=== PATIENT | male | born 1970 | race Caucasian/White ===

== ENCOUNTER 2018-04-14 11:44 | Day surgery (SDC) | payer MEDICAID, SELFPAY ==
--- NOTE | 2018-04-13 07:34 | HP.PCM_ITS ---
History and Physical Date of Admission: 04/14/18 HISTORY AND PHYSICAL ? Pamela Lindquist 1970 ? REFERRING PHYSICIAN: ??Malvin Mahmood MD ? CHIEF COMPLAINT: ??Consult (Consult Colonoscopy/ EGD) ? HPI: The patient is a 48 year old male referred for endoscopy. ?Pamela notes history of Familial Adenomatous Polyposis and requires regular endoscopic surveillance, has had multiple endoscopies with polypectomies. ?He is maintained on an annual colonoscopy schedule and notes he had also been instructed to have EGD every year, is due for EGD this year. ?Patient denies any change in bowel habits, abdominal pain or other concerns currently. ?His most recent endoscopy reports have been reviewed. ? The patient is being seen by me today at the request of Dr. Mahmood?for my opinion and advice regarding surveillance endoscopy for FAP. ?Of note, patient was actually already scheduled for colonoscopy as Open Access for next week, however this does not reflect the EGD which is also needed this year. ?Additionally, patient is scheduled for moderate sedation, last several endoscopy procedures have been done under Monitored Anesthetic Care. ?The patient denies any recall from prior procedures. ?Has sleep apnea and wears CPAP, otherwise denies breathing problems and denies any cardiac issues. ?He does note that since he will need the EGD in addition to colonoscopy this year, he would prefer the heavier sedation. ? ? PAST?MEDICAL?HISTORY PAST MEDICAL HISTORY Diagnosis Date ? Benign neoplasm of colon ? ? Diaphragmatic hernia without mention of obstruction or gangrene ? ? Esophageal reflux ? ? Familial adenomatous polyposis 11/2013 ? APC mutation ? Family history of malignant neoplasm of gastrointestinal tract ? ? Obstructive sleep apnea ? ? on cpap ? Pure hypercholesterolemia ? ? Scarlet fever ? ? as a child ? Uncontrolled type 2 diabetes mellitus without complication, without long-term current use of insulin (HCC) 11/22/2015 ? Unspecified essential hypertension ? ? Unspecified hypothyroidism ? ? ? PAST?SURGICAL?HISTORY PAST SURGICAL HISTORY Procedure Laterality Date ? COLONOS W/REM POLYP SNARE ? ? polyps - cecum - multiple small, 40cm- 3, and rectum ? COLONOS W/REM POLYP SNARE ? 02/04/2017 ? For adenomatous polyps-history of familial adenomatous [id number] follow-up ? COLONOSCOP W/ OR W/O BRSH SPEC ? 09/24/2013 ? Colonoscopy ? COLONOSCOP W/ OR W/O BRSH SPEC ? 11/26/14 ? Colonoscopy ? COLONOSCOP W/ OR W/O BRSH SPEC ? 12/08/15 ? Colonoscopy (MAC) ? EGD W/O BRSH SPECIMEN W/BX ? ? hiatal hernia - moderate ? EGD W/O OR W/BRUSH/WASH ? 05/28/2014 ? EGD ? EGD W/O OR W/BRUSH/WASH ? 12/08/15 ? EGD (MAC) ? F COLONOSCOPY WITH POLYPECTOMY ? 02/05/13 ? multiple small adenomatous colon polyps removed-patient needs repeat scope in 2 years ? PAST SURGICAL HISTORY OF ? ? ? left great toe, nail removal (trauma) ? PAST SURGICAL HISTORY OF ? 1990 ? ORIF right femur -- [place] ? SIGMOIDOSCOPY FLEX DIAG ? 08/27/2013 ? Sigmoidoscopy, flexible ? ? CURRENT?MEDICATIONS ? Current Outpatient Prescriptions: levothyroxine (SYNTHROID) 50 mcg tablet TAKE 1 TABLET DAILY WITH 200MCG TABLET lisinopril (PRINIVIL) 5 mg tablet Take 1 tablet by mouth once daily. glipiZIDE XL (GLUCOTROL XL) 5 mg 24 hr tablet Take 1 tablet by mouth every morning. levothyroxine (SYNTHROID) 200 mcg tablet TAKE 1 TABLET BY MOUTH EVERY DAY ergocalciferol, vitamin D2, (DRISDOL) 50,000 unit capsule TAKE 1 CAPSULE BY MOUTH EVERY WEEK FREESTYLE LITE STRIPS test strip Test blood sugar twice daily E11.9 UNILET SUPER THIN LANCETS 30 gauge misc Test blood sugar twice daily E11.9 gabapentin (NEURONTIN) 300 mg capsule TAKE 1 CAPSULE BY MOUTH AROUND 5PM NEEDED FOR RLS, MAY INCREASE TO UP TO 3 (THREE) CAPSULES NEEDED metFORMIN (GLUCOPHAGE) 500 mg tablet Take 2 tablets by mouth twice daily with meals. CPAP On CPAP 9cmH2O. Please provide supplies. Mask per preference, heated tubing, filters, SD card, heated humidity. Lifetime Supplies. Dx: G47.33. Fenofibrate (LOFIBRA) 160 mg tablet TAKE 1 TABLET DAILY Omeprazole 40 mg capsule Take 1 capsule by mouth once daily. multivitamin tablet Take 1 tablet by mouth once daily. cetirizine (ZYRTEC) 10 mg tablet Take 1 tablet by mouth once daily. simvastatin (ZOCOR) 20 mg tablet TAKE 1 TABLET BY MOUTH AT BEDTIME ciclopirox (LOPROX) 0.77 % cream Apply 1 application to affected area twice daily. triamcinolone (KENALOG IN ORABASE) 0.1 % paste 1 application by DENTAL route three times daily. fluticasone (FLONASE) 50 mcg/actuation nasal spray Use 2 Sprays in each nostril once daily. Rinse mouth after use. FLUoxetine (PROZAC) 20 mg capsule TAKE 1 CAPSULE BY MOUTH EVERY DAY COMPOUNDED PRESCRIPTION Disposable filter papers for CPAP machine, old filter papers are no good. Dx ROSEANN 327.23 albuterol HFA (PROAIR HFA) 90 mcg/actuation inhaler Inhale 2 Puffs as instructed every 6 hours as needed for Wheezing/Shortness of Breath. Center-3 Fatty Acids-Vitamin E (FISH OIL) 1,000 mg cap Take 2 capsules by mouth once daily. COMPOUNDED PRESCRIPTION Knee High Compression Stockings 20-30 mm, DX: chronic peripheral venous insufficiency, edema ? No current facility-administered medications for this visit. ? ALLERGIES: Patient has no known allergies. ? PERSONAL HISTORY: SOCIAL?HISTORY Social History ??Marital status: ?Spouse name: ?Years of education: ?Number of children: 2 ? Social History Main Topics ??Smoking status: Former Smoker ?Packs/day: 1.00 ?Years: 5.00 ?Types: Cigarettes ?Quit date: 06/24/1997 ??Smokeless tobacco: Never Used ?Comment: ocassional cigars ??Alcohol use: Yes ?Comment: Rare for holidays ??Drug use: No ?Sexual activity: Yes ?Partners with: Female ? ? FAMILY HISTORY: FAMILY?HISTORY FAMILY HISTORY Problem Relation Age of Onset ? Coronary Artery Disease Father ? ? ? age 40's ? Lipids Father ? ? Hypertension Father ? ? GI Father ? ? ? 100+ colonic polyps, ?colon cancer late 50s ? Breast Cancer Mother 42 ? Stroke Paternal Grandmother ? ? Colon Cancer Paternal Grandmother ? ? ? dx 40s ? Diabetes Maternal Grandmother ? ? REVIEW OF SYMPTOMS: ??The review of systems data was entered by the nurse and reviewed by me ? Nursing Notes: Jess Rivas LPN ?01/30/2018 10:16 AM ?Signed REVIEW OF SYSTEMS: ?General:???The patient denies fatigue, NOTES weight loss, denies weight gain, denies feeling hot, and denies feelings of cold. ?Eyes: ?The patient denies glaucoma, denies eye injury/surgery, wears glasses or contacts. ?Ear/Nose/Throat: ?The patient NOTES allergies, denies hayfever, denies ear infections, and denies bloody noses. ?Cardiovascular: ?The patient denies chest pain, denies heart disease, NOTES high blood pressure,denies cardiac stent, denies prior heart attack, denies irregular heart beat, NOTES high cholesterol, ?denies poor circulation, denies heart failure, other cardiac issues, denies claudication, denies cold feet, denies peripheral arterial stent. ?Respiratory: ?The patient denies tuberculosis, denies pneumonia, denies frequent cough, denies pulmonary embolism, denies shortness of breath, and d enies coughing up blood. ?Gastrointestinal: ?The patient denies difficulty swallowing, NOTES acid reflux, denies ulcers, denies vomiting, denies jaundice/hepatitis, denies gallbladder problems, denies black or tarry stools, NOTES hemorrhoids, NOTES bleeding from rectum, denies diverticulitis, denies constipation, denies diarrhea, denies loss of stool control, and NOTES hernias. ?Kidney/Bladder: ?The patient denies kidney stones, denies urine infections, and denies bloody urine. ?Skin: ?The patient denies a history of skin cancer, denies bleeding/changing moles, and denies a history of skin rash. ?Neurologic: ?The patient denies a history of epilepsy/convulsions, denies headaches, denies head/spinal injuries, and denies stroke/TIA. ?Psychiatric: ?The patient denies psychiatric medications, denies depression, and denies voices, denies substance abuse. ?Endocrine: ?The patient NOTES thyroid disorders, NOTES diabetes, and denies hormonal problems. ?Hematologic: ?The patient denies a history of bruising, denies bleeding, and denies anemia, denies blood clots. ?Infections: ?The patient NOTES a history of measles and mumps, denies rheumatic fever, and denies sexually transmitted diseases. ?Musculoskeletal: ?The patient denies back pain/injury, NOTES back problems, denies sciatica, denies knee/foot trouble, denies arthritis, or denies gout. ? ? When was patient's last Mammogram screening? N/A ? ?Last Colonoscopy: ?02/2017 ? Jess Rivas LPN? I have confirmed and edited as necessary, the PFSH and ROS obtained by others. ? ? PHYSICAL EXAMINATION: ? General: ?The patient is 48 year old male, well nourished, well hydrated in no acute distress. ?The patient is oriented to time, place, and person. ? VITALS: Blood pressure 124/86, pulse 72.?There is no height or weight on file to calculate BMI.? ? HEENT: ?Normal cephalic, ataumatic, pupils are equally round, sclera are anicteric, mucous membranes are moist, oropharynx is clear. ?Neck has no masses, asymmetry or lymphadenopathy. ? ? Respiratory: ?Clear to auscultation and percussion. ?Normal respiratory excursion and pattern. ? Cardiac: ?Examination is regular rate and rhythm. ? Abdominal exam: ?Soft, nontender, ?with no palpable masses. ?No hepatosplenomegaly. ?No palpable hernias. ? Rectal exam: exam deferred ? Extremities: ?no clubbing, cyanosis or edema. ?No adenopathy. ? Other: ? LABORATORY VALUES: As Noted ? RADIOLOGIC STUDIES: ?As Noted ? Assessment ? IMPRESSION: encounter for high-risk surveillance endoscopy due to Familial Adenomatous Polyposis ? PLAN: ?We will plan for both upper and lower endoscopy-will reschedule procedure for MAC with both EGD and colonoscopy to be done at that setting. ??We discussed the risks and benefits of the planned endoscopy. ?I have informed the patient that complications can occur including failure to complete the endoscopy and perforation. ?The patient had the opportunity to ask questions concerning the planned endoscopy. ?My staff has also explained the procedure to the patient in understandable terms and has given the patient printed material concerning the procedure. ?The patient freely consents to surgery. ? I plan to use golytely bowel preparation for endoscopy ? I plan for monitored anesthetic care. ? Diagnoses: (D12.6) FAP (familial adenomatous polyposis) ?(primary encounter diagnosis) ? My findings have been communicated to Dr. Mahmood?via shared medical record. ?This note will be forwarded to Dr. Malvin Mahmood MD. ?? Return to Clinic: The patient is instructed to follow-up with me 1 week post operatively. ? ? Kimberley Lagunas PA-C
[2018-04-14] VITALS (7 sets, daily range): BP systolic 110–126; BP diastolic 70–84; PULSE 58–67; RESP 16–18; TEMP 36.2–36.6; O2SAT 97–99; BMI 36.5
[2018-04-14 12:31] LABS: Bedside Glucose 144 mg/dL (70-110)
--- OUTSIDE RECORDS SUMMARY | 2018-04-14 12:37 | XMS RPT_ITS ---
:1970 Author Organization OHIP Care Team Providers Name Role Phone LEOBARDO MAHMOOD Attending Unavailable LEOBARDO MAHMOOD Referring Unavailable LEOBARDO MAHMOOD Attending Unavailable LEOBARDO MAHMOOD Referring Unavailable LEOBARDO MAHMOOD Referring Unavailable LEOBARDO MAHMOOD Referring Unavailable LEOBARDO MAHMOOD Referring Unavailable LEOBARDO MAHMOOD Attending Unavailable CECY LAGUNAS) Attending Unavailable LEOBARDO MAHMOOD Referring Unavailable Antonio Artis Attending Unavailable Antonio Artis Referring Unavailable Leobardo Mahmood Primary Care Unavailable PROBLEMS PROBLEMS DATE TYPE CONDITION / CODE ATTENDING STATUS SOURCE 01/11/2009 Active Mixed hyperlipidemia NA Active [facility] / E78.2(ICD-10) [facility] [place] Repository 10/03/2017 Active Type 2 diabetes NA Active [facility] mellitus with other [facility] [place] diabetic kidney Repository complication / E11.29(ICD-10) 10/03/2017 Active Proteinuria, NA Active [facility] unspecified / [facility] [place] R80.9(ICD-10) Repository 11/13/2016 Active Type 2 diabetes NA Active [facility] mellitus without [facility] [place] complications / Repository E11.9(ICD-10) 01/12/2016 Active Hypothyroidism, NA Active [facility] unspecified / [facility] [place] E03.9(ICD-10) Repository 08/10/2015 Active Vitamin D NA Active [facility] deficiency, [facility] [place] unspecified / Repository E55.9(ICD-10) 01/11/2009 Active Essential (primary) NA Active [facility] hypertension / [facility] [place] I10(ICD-10) Repository 06/20/2017 Active Iron deficiency NA Active [facility] anemia, unspecified [facility] [place] / D50.9(ICD-10) Repository PROCEDURES PROCEDURES No Procedure Records FoundRESULTS RESULTS BEDSIDE GLUCOSE Collected: 04/14/2018 Status: F Source: [place] 12:16 PM [facility] REPOSITORY TYPE CODE TESTS RESULT OUT OF REFERENCE UNITS RANGE LAB L501.080 High 70-110 mg/dL BEDSIDE 144 GLU Result Comment: MANAGEMENT OF PATIENT CARE PER NURSING PROTOCOL Performed By: #### L501.080 #### [facility] Point of Care [address] [place] [address] HISTORY AND PHYSICAL Observed: 04/13/2018 Status: F Source: [place] EXAM 7:34 AM [facility] REPOSITORY [facility] [id number] [place] [id number] and Chvfvkrs18/21/18 0733MR#: [id number] Acct: [id number]: PAMELA LINDQUIST Rep #: [id number]: 1970 48 From: Antonio Artis MDPCP: Leobardo Mahmood MD Status: PRE SDC YLocation: ENHistory and PhysicalDate of Admission: 04/14/18HISTORY AND PHYSICALLesrommel Lindquist1970REFERRING PHYSICIAN: Leobardo Mahmood, [facility] COMPLAINT: Consult (Consult Colonoscopy/ EGD)HPI: The patient is a 48 year old male referred for endoscopy. Pamela notes history ofFamilial Adenomatous Polyposis and requires regular endoscopic surveillance, has had multipleendoscopies with polypectomies. He is maintained on an annual colonoscopy schedule and noteshe had also been instructed to have EGD every year, is due for EGD this year. Patient deniesany change in bowel habits, abdominal pain or other concerns currently. His most recentendoscopy reports have been reviewed.The patient is being seen by me today at the request of Dr. Mamhood for my opinion and adviceregarding surveillance endoscopy for FAP. Of note, patient was actually already scheduled forcolonoscopy as Open Access for next week, however this does not reflect the EGD which is alsoneeded this year. Additionally, patient is scheduled for moderate sedation, last severalendoscopy procedures have been done under Monitored Anesthetic Care. The patient denies anyrecall from prior procedures. Has sleep apnea and wears CPAP, otherwise denies breathingproblems and denies any cardiac issues. He does note that since he will need the EGD inaddition to colonoscopy this year, he would prefer the heavier sedation.PAST MEDICAL HISTORYPAST SURGICAL HISTORYPAST SURGICAL HISTORY Procedure Laterality Date COLONOS W/REM POLYP SNARE polyps- cecum - multiple small, 40cm- 3, and rectum COLONOS W/REM POLYP SNARE 02/04/2017 Foradenomatous polyps-history of familial adenomatous psimqmhxh-ssu-sjdh follow-up COLONOSCOPW/ OR W/O BRSH SPEC 09/24/2013 Colonoscopy COLONOSCOP W/ OR W/O BRSH SPEC 11/26/14 Colonoscopy COLONOSCOP W/ OR W/O BRSH SPEC 12/08/15 Colonoscopy (MAC) EGD W/O BRSH SPECIMEN W/BX hiatal hernia - moderate EGD W/O OR W/BRUSH/WASH 05/28/2014 EGDEGD W/O OR W/BRUSH/WASH 12/08/15 EGD (MAC) F COLONOSCOPY WITH POLYPECTOMY 02/05/13multiple small adenomatous colon polyps removed-patient needs repeat scope in 2 years PAST SURGICAL HISTORY OF left great toe, nail removal (trauma) PAST SURGICAL HISTORY OF 1990 ORIF right femur -- [place] SIGMOIDOSCOPY FLEX DIAG 08/27/2013 Sigmoidoscopy, flexibleCURRENT MEDICATIONSCurrent Outpatient Prescriptions: levothyroxine (SYNTHROID) 50 mcg tablet TAKE 1 TABLET DAILY WITH 200MCG TABLET lisinopril (PRINIVIL) 5 mg tablet Take 1 tablet by mouth once daily. glipiZIDE XL(GLUCOTROL XL) 5 mg 24 hr tablet Take 1 tablet by mouth every morning. levothyroxine (SYNTHROID) 200 mcg tablet TAKE 1 TABLET BY MOUTH EVERY DAY ergocalciferol, vitamin D2, (DRISDOL)50,000 unit capsule TAKE 1 CAPSULE BY MOUTH EVERY WEEK FREESTYLE LITE STRIPS test strip Testblood sugar twice daily E11.9 UNILET SUPER THIN LANCETS 30 gauge misc Test blood sugar twice daily E11.9 gabapentin (NEURONTIN) 300 mg capsule TAKE 1 CAPSULE BY MOUTH AROUND 5PM NEEDEDFOR RLS, MAY INCREASE TO UP TO 3 (THREE) CAPSULES NEEDED metFORMIN (GLUCOPHAGE) 500 mg tablet Take 2 tablets by mouth twice daily with meals. CPAP On CPAP 9cmH2O. Please provide supplies. Mask per preference, heated tubing, filters, SD card, heated humidity. Lifetime Supplies. Dx: G47.33. Fenofibrate (LOFIBRA) 160 mg tabletTAKE 1 TABLET DAILY Omeprazole 40 mg capsule Take 1 capsule by mouth once daily. multivitamin tablet Take 1 tablet by mouth once daily. cetirizine (ZYRTEC) 10 mg tablet Take 1 tablet by mouth oncedaily. simvastatin (ZOCOR) 20 mg tabletTAKE 1 TABLET BY MOUTH AT BEDTIME ciclopirox (LOPROX) 0.77 % cream Apply 1 application to affected area twice daily. triamcinolone (KENALOG IN ORABASE) 0.1% paste 1 application by DENTALroute three times daily. fluticasone (FLONASE) 50 mcg/actuation nasal spray Use 2 Sprays in each nostril once daily. Rinse mouth after use. FLUoxetine (PROZAC) 20 mgcapsule TAKE 1 CAPSULEBY MOUTH EVERY DAY COMPOUNDED PRESCRIPTION Disposable filter papers for CPAP machine, old filter papers are no good. Dx ROSEANN 327.23 albuterol HFA (PROAIR HFA) 90 mcg/actuationinhaler Inhale2 Puffs as instructed every 6 hours as needed for Wheezing/Shortness of Breath. [place]-3 FattyAcids-Vitamin E (FISH OIL) 1,000 mg cap Take 2 capsules by mouth once daily. COMPOUNDED PRESCRIPTION Knee High Compression Stockings 20-30 mm, DX: chronic peripheral venous insufficiency,edema No current facility-administered medications for this visit.ALLERGIES: Patient has no known allergies.PERSONAL HISTORY:SOCIAL HISTORYFAMILY HISTORY:FAMILY HISTORYFAMILY HISTORY Problem Relation Age of Onset Coronary Artery Disease Father age 40's Lipids Father Hypertension Father GI Father 100+ colonic polyps, ?colon cancer late 50s Breast Cancer Mother 42 Stroke Paternal Grandmother Colon Cancer Paternal Grandmother dx 40s Diabetes Maternal GrandmotherREVIEW OF SYMPTOMS:The review of systems data was entered by the nurse and reviewed by Adrian Notes:Jess Rivas LPN 01/30/2018 10:16 AM SignedREVIEW OF SYSTEMS:General: The patient denies fatigue, NOTES weight loss, denies weight gain, deniesfeeling hot, and denies feelings of cold.Eyes: The patient denies glaucoma, denies eye injury/surgery, wears glasses or contacts.Ear/Nose/Throat: The patient NOTES allergies, denies hayfever, denies ear infections, anddenies bloody noses.Cardiovascular: The patient denies chest pain, denies heart disease, NOTES high bloodpressure,denies cardiac stent, denies prior heart attack, denies irregular heart beat, NOTEShigh cholesterol, denies poor circulation, denies heart failure, other cardiac issues, deniesclaudication, denies cold feet, denies peripheral arterial stent.Respiratory: The patient denies tuberculosis, denies pneumonia, denies frequent cough,denies pulmonary embolism, denies shortness of breath, and denies coughing up blood.Gastrointestinal: The patient denies difficulty swallowing, NOTES acid reflux, deniesulcers, denies vomiting, denies jaundice/hepatitis, denies gallbladder problems, denies blackor tarry stools, NOTES hemorrhoids, NOTES bleeding from rectum, denies diverticulitis, deniesconstipation, denies diarrhea, denies loss of stool control, and NOTES hernias.Kidney/Bladder: The patient denies kidney stones, denies urine infections, and deniesbloody urine.Skin: The patient denies a history of skin cancer, denies bleeding/changing moles, anddenies a history of skin rash.Neurologic: The patient denies a history of epilepsy/convulsions, denies headaches,denies head/spinal injuries, and denies stroke/TIA.Psychiatric: The patient denies psychiatric medications, denies depression, and deniesvoices, denies substance abuse.Endocrine: The patient NOTES thyroid disorders, NOTES diabetes, and denies hormonalproblems.Hematologic: The patient denies a history of bruising, denies bleeding, and deniesanemia, denies blood clots.Infections: The patient NOTES a history of measles and mumps, denies rheumatic fever, anddenies sexually transmitted diseases.Musculoskeletal: The patient denies back pain/injury, NOTES back problems, deniessciatica, denies knee/foot trouble, denies arthritis, or denies gout.When was patient's last Mammogram screening? N/ALast Colonoscopy: 02/2017Jess RODARTE have confirmed and edited as necessary, the PFSH and ROS obtained by others.PHYSICAL EXAMINATION:General: The patient is 48 year old male, well nourished, well hydrated in no acute distress.The patient is oriented to time, place, and person.VITALS: Blood pressure 124/86, pulse 72. There is no height or weight on file to calculateBMI.HEENT: Normal cephalic, ataumatic, pupils are equally round, sclera are anicteric, mucousmembranes are moist, oropharynx is clear. Neck has no masses, asymmetry or lymphadenopathy.Respiratory: Clear to auscultation and percussion. Normal respiratory excursion and pattern.Cardiac: Examination is regular rate and rhythm.Abdominal exam: Soft, nontender, with no palpable masses. No hepatosplenomegaly. Nopalpable hernias.Rectal exam: exam deferredExtremities: no clubbing, cyanosis or edema. No adenopathy.Other:LABORATORY VALUES: As NotedRADIOLOGIC STUDIES: As NotedAssessmentIMPRESSION: encounter for high-risk surveillance endoscopy due to Familial AdenomatousPolyposisPLAN: We will plan for both upper and lower endoscopy-will reschedule procedure for MAC withboth EGD and colonoscopy to be done at that setting. We discussed the risks and benefits ofthe planned endoscopy. I have informed the patient that complications can occur includingfailure to complete the endoscopy and perforation. The patient had the opportunity to askquestions concerning the planned endoscopy. My staff has also explained the procedure to thepatient in understandable terms and has given the patient printed material concerning theprocedure. The patient freely consents to surgery.I plan to use golytely bowel preparation for endoscopyI plan for monitored anesthetic care.Diagnoses: (D12.6) FAP (familial adenomatous polyposis) (primary encounter diagnosis)My findings have been communicated to Dr. Mahmood via shared medical record. This note will beforwarded to Dr. Leobardo Mahmood MD.Return to Clinic: The patient is instructed to follow-up with me 1 week post operatively. NATANAEL Melissa-C10/ [id number] <Electronically signed by Antonio Artis MD>Date Antonio Artis MDCosigner Signature: Date (if applicable)CC: Antonio Artis MD; Leobardo Mahmood MD Signed PROGRESS Observed: 01/31/2018 Status: COMPLETED Source: [place] 12:07 PM [facility] REPOSITORY HNO ID: [id number]: Cecy (Natanael) GrafService: (none)Author Type: Physician AssistantType: Progress NotesFiled: 01/31/2018 12:18 PMNote Text:HISTORY AND PHYSICALPamela Nicholson Ameena1970REFERRING PHYSICIAN: Leobardo Mahmood, MDCHIEF COMPLAINT: Consult (Consult Colonoscopy/ EGD)HPI: The patient is a 48 year old male referred for endoscopy. Leslienotes history of Familial Adenomatous Polyposis and requires regularendoscopic surveillance, has had multiple endoscopies with polypectomies.He is maintained on an annual colonoscopy schedule and notes he had alsobeen instructed to have EGD every year, is due for EGD this year. Patientdenies any change in bowel habits, abdominal pain or other concernscurrently. His most recent endoscopy reports have been reviewed.The patient is being seen by me today at the request of Dr. Mahmood for myopinion and advice regarding surveillance endoscopy for FAP. Of note,patient was actually already scheduled for colonoscopy as Open Access fornext week, however this does not reflect the EGD which is also needed thisyear. Additionally, patient is scheduled for moderate sedation, lastseveral endoscopy procedures have been done under Monitored AnestheticCare. The patient denies any recall from prior procedures. Has sleepapnea and wears CPAP, otherwise denies breathing problems and denies anycardiac issues. He does note that since he will need the EGD in additionto colonoscopy this year, he would prefer the heavier sedation.PAST MEDICAL HISTORYDiagnosis Date- Benign neoplasm of colon- Diaphragmatic hernia without mention of obstruction or gangrene- Esophageal reflux- Familial adenomatous polyposis 11/2013 APC mutation- Family history of malignant neoplasm of gastrointestinal tract- Obstructive sleep apnea on cpap- Pure hypercholesterolemia- Scarlet fever as a child- Uncontrolled type 2 diabetes mellitus without complication, withoutlong-term current use of insulin (HCC) 11/22/2015- Unspecified essential hypertension- Unspecified hypothyroidismPAST SURGICAL HISTORYProcedure Laterality Date- COLONOS W/REM POLYP SNARE polyps - cecum - multiple small, 40cm- 3, and rectum- COLONOS W/REM POLYP SNARE 02/04/2017 For adenomatous polyps-history of familial adenomatous ysgkmteub-zrm-jrpdbsmqus-up- COLONOSCOP W/ OR W/O BRSH SPEC 09/24/2013 Colonoscopy- COLONOSCOP W/ OR W/O BRSH SPEC 11/26/14 Colonoscopy- COLONOSCOP W/ OR W/O BRSH SPEC 12/08/15 Colonoscopy (MAC)- EGD W/O BRSH SPECIMEN W/BX hiatal hernia - moderate- EGD W/O OR W/BRUSH/WASH 05/28/2014 EGD- EGD W/O OR W/BRUSH/WASH 12/08/15 EGD (MAC)- F COLONOSCOPY WITH POLYPECTOMY 02/05/13 multiple small adenomatous colon polyps removed-patient needs repeatscope in 2 years- PAST SURGICAL HISTORY OF left great toe, nail removal (trauma)- PAST SURGICAL HISTORY OF 1990 ORIF right femur -- [place]- SIGMOIDOSCOPY FLEX DIAG 08/27/2013 Sigmoidoscopy, flexibleCurrent Outpatient Prescriptions:levothyroxine (SYNTHROID) 50 mcg tablet TAKE 1 TABLET DAILY WITH 200MCGTABLETlisinopril (PRINIVIL) 5 mg tablet Take 1 tablet by mouth once daily.glipiZIDE XL (GLUCOTROL XL) 5 mg 24 hr tablet Take 1 tablet by mouth everymorning.levothyroxine (SYNTHROID) 200 mcg tablet TAKE 1 TABLET BY MOUTH EVERY DAYergocalciferol, vitamin D2, (DRISDOL) 50,000 unit capsule TAKE 1 CAPSULEBY MOUTH EVERY WEEKFREESTYLE LITE STRIPS test strip Test blood sugar twice daily E11.9UNILET SUPER THIN LANCETS 30 gauge misc Test blood sugar twice daily E11.9gabapentin (NEURONTIN) 300 mg capsule TAKE 1 CAPSULE BY MOUTH AROUND 5PMAS NEEDED FOR RLS, MAY INCREASE TO UP TO 3 (THREE) CAPSULES NEEDEDmetFORMIN (GLUCOPHAGE) 500 mg tablet Take 2 tablets by mouth twice dailywith meals.CPAP On CPAP 9cmH2O. Please provide supplies. Mask per preference, heatedtubing, filters, SD card, heated humidity. Lifetime Supplies. Dx: G47.33.Fenofibrate (LOFIBRA) 160 mg tablet TAKE 1 TABLET DAILYOmeprazole 40 mg capsule Take 1 capsule by mouth once daily.multivitamin tablet Take 1 tablet by mouth once daily.cetirizine (ZYRTEC) 10 mg tablet Take 1 tablet by mouth once daily.simvastatin (ZOCOR) 20 mg tablet TAKE 1 TABLET BY MOUTH AT BEDTIMEciclopirox (LOPROX) 0.77 % cream Apply 1 application to affected areatwice daily.triamcinolone (KENALOG IN ORABASE) 0.1 % paste 1 application by DENTALroute three times daily.fluticasone (FLONASE) 50 mcg/actuation nasal spray Use 2 Sprays in eachnostril once daily. Rinse mouth after use.FLUoxetine (PROZAC) 20 mg capsule TAKE 1 CAPSULE BY MOUTH EVERY DAYCOMPOUNDED PRESCRIPTION Disposable filter papers for CPAP machine, oldfilter papers are no good. Dx ROSEANN 327.23albuterol HFA (PROAIR HFA) 90 mcg/actuation inhaler Inhale 2 Puffs asinstructed every 6 hours as needed for Wheezing/Shortness of Breath.[place]-3 Fatty Acids-Vitamin E (FISH OIL) 1,000 mg cap Take 2 capsules bymouth once daily.COMPOUNDED PRESCRIPTION Knee High Compression Stockings 20-30 mm, DX:chronic peripheral venous insufficiency, edemaNo current facility-administered medications for this visit.ALLERGIES: Patient has no known allergies.PERSONAL HISTORY: Social History Marital status: Spouse name: Years of education: Number of children: 2Social History Main Topics Smoking status: Former Smoker Packs/day: 1.00 Years: 5.00 Types: Cigarettes Quit date: 06/24/1997 Smokeless tobacco: Never Used Comment: ocassional cigars Alcohol use: Yes Comment: Rare for holidays Drug use: No Sexual activity: Yes Partners with: FemaleFAMILY HISTORY:FAMILY HISTORYProblem Relation Age of Onset- Coronary Artery Disease Father age 40's- Lipids Father- Hypertension Father- GI Father 100+ colonic polyps, ?colon cancer late 50s- Breast Cancer Mother 42- Stroke Paternal Grandmother- Colon Cancer Paternal Grandmother dx 40s- Diabetes Maternal GrandmotherREVIEW OF SYMPTOMS: The review of systems data was entered by the nurse and reviewed by Adrian Notes:Jess Rivas LPN 01/30/2018 10:16 AM SignedREVIEW OF SYSTEMS: General: The patient denies fatigue, NOTES weight loss, deniesweight gain, denies feeling hot, and denies feelings of cold. Eyes: The patient denies glaucoma, denies eye injury/surgery, wearsglasses or contacts. Ear/Nose/Throat: The patient NOTES allergies, denies hayfever,denies ear infections, and denies bloody noses. Cardiovascular: The patient denies chest pain, denies heart disease,NOTES high blood pressure,denies cardiac stent, denies prior heart attack,denies irregular heart beat, NOTES high cholesterol, denies poorcirculation, denies heart failure, other cardiac issues, deniesclaudication, denies cold feet, denies peripheral arterial stent. Respiratory: The patient denies tuberculosis, denies pneumonia,denies frequent cough, denies pulmonary embolism, denies shortness ofbreath, and denies coughing up blood. Gastrointestinal: The patient denies difficulty swallowing, NOTESacid reflux, denies ulcers, denies vomiting, denies jaundice/hepatitis,denies gallbladder problems, denies black or tarry stools, NOTEShemorrhoids, NOTES bleeding from rectum, denies diverticulitis, deniesconstipation, denies diarrhea, denies loss of stool control, and NOTEShernias. Kidney/Bladder: The patient denies kidney stones, denies urineinfections, and denies bloody urine. Skin: The patient denies a history of skin cancer, deniesbleeding/changing moles, and denies a history of skin rash. Neurologic: The patient denies a history of epilepsy/convulsions,denies headaches, denies head/spinal injuries, and denies stroke/TIA. Psychiatric: The patient denies psychiatric medications, deniesdepression, and denies voices, denies substance abuse. Endocrine: The patient NOTES thyroid disorders, NOTES diabetes, anddenies hormonal problems. Hematologic: The patient denies a history of bruising, deniesbleeding, and denies anemia, denies blood clots. Infections: The patient NOTES a history of measles and mumps, deniesrheumatic fever, and denies sexually transmitted diseases. Musculoskeletal: The patient denies back pain/injury, NOTES backproblems, denies sciatica, denies knee/foot trouble, denies arthritis, ordenies gout.When was patient's last Mammogram screening? N/A Last Colonoscopy: 02/2017Jess RODARTE have confirmed and edited as necessary, the PFSH and ROS obtained byothers.PHYSICAL EXAMINATION:General: The patient is 48 year old male, well nourished, well hydratedin no acute distress. The patient is oriented to time, place, and person.VITALS: Blood pressure 124/86, pulse 72. There is no height or weight onfile to calculate BMI.HEENT: Normal cephalic, ataumatic, pupils are equally round, sclera areanicteric, mucous membranes are moist, oropharynx is clear. Neck has nomasses, asymmetry or lymphadenopathy.Respiratory: Clear to auscultation and percussion. Normal respiratoryexcursion and pattern.Cardiac: Examination is regular rate and rhythm.Abdominal exam: Soft, nontender, with no palpable masses. Nohepatosplenomegaly. No palpable hernias.Rectal exam: exam deferredExtremities: no clubbing, cyanosis or edema. No adenopathy.Other:LABORATORY VALUES: As NotedRADIOLOGIC STUDIES: As NotedAssessmentIMPRESSION: encounter for high-risk surveillance endoscopy due to FamilialAdenomatous PolyposisPLAN: We will plan for both upper and lower endoscopy-will rescheduleprocedure for MAC with both EGD and colonoscopy to be done at thatsetting. We discussed the risks and benefits of the planned endoscopy.I have informed the patient that complications can occur including failureto complete the endoscopy and perforation. The patient had theopportunity to ask questions concerning the planned endoscopy. My staffhas also explained the procedure to the patient in understandable termsand has given the patient printed material concerning the procedure. Thepatient freely consents to surgery.I plan to use golytely bowel preparation for endoscopyI plan for monitored anesthetic care.Diagnoses: (D12.6) FAP (familial adenomatous polyposis) (primaryencounter diagnosis)My findings have been communicated to Dr. Mahmood via shared medical record.This note will be forwarded to Dr. Leobardo Mahmood MD.Return to Clinic: The patient is instructed to follow-up with me 1 weekpost operatively. BERT Melissa Observed: 01/30/2018 Status: COMPLETED Source: [place] 9:00 AM [facility] REPOSITORY Office Visit (GENSWS) PAMELA LINDQUIST ([id number]) 1970 MDate Time Provider Department01/30/18 9:00 AM CECY LAGUNAS (PA) During your visit today, we recorded the following information about you: Pulse Blood pressure 72/minute 124/86Jess Rivas RECYCLING OR RUBBISH COLLECTOR 01/30/2018 10:16 AM SignedREVIEW OF SYSTEMS: General: The patient denies fatigue, NOTES weight loss, denies weightgain, denies feeling hot, and denies feelings of cold. Eyes: The patient denies glaucoma, denies eye injury/surgery, wearsglasses or contacts. Ear/Nose/Throat: The patient NOTES allergies, denies hayfever, denies earinfections, and denies bloody noses. Cardiovascular: The patient denies chest pain, denies heart disease,NOTES high blood pressure,denies cardiac stent, denies prior heart attack,denies irregular heart beat, NOTES high cholesterol, denies poor circulation,denies heart failure, other cardiac issues, denies claudication, denies coldfeet, denies peripheral arterial stent. Respiratory: The patient denies tuberculosis, denies pneumonia, deniesfrequent cough, denies pulmonary embolism, denies shortness of breath, anddenies coughing up blood. Gastrointestinal: The patient denies difficulty swallowing, NOTES acidreflux, denies ulcers, denies vomiting, denies jaundice/hepatitis, deniesgallbladder problems, denies black or tarry stools, NOTES hemorrhoids, NOTESbleeding from rectum, denies diverticulitis, denies constipation, deniesdiarrhea, denies loss of stool control, and NOTES hernias. Kidney/Bladder: The patient denies kidney stones, denies urineinfections, and denies bloody urine. Skin: The patient denies a history of skin cancer, deniesbleeding/changing moles, and denies a history of skin rash. Neurologic: The patient denies a history of epilepsy/convulsions, deniesheadaches, denies head/spinal injuries, and denies stroke/TIA. Psychiatric: The patient denies psychiatric medications, deniesdepression, and denies voices, denies substance abuse. Endocrine: The patient NOTES thyroid disorders, NOTES diabetes, anddenies hormonal problems. Hematologic: The patient denies a history of bruising, denies bleeding,and denies anemia, denies blood clots. Infections: The patient NOTES a history of measles and mumps, deniesrheumatic fever, and denies sexually transmitted diseases. Musculoskeletal: The patient denies back pain/injury, NOTES backproblems, denies sciatica, denies knee/foot trouble, denies arthritis, ordenies gout.When was patient's last Mammogram screening? N/A Last Colonoscopy: 02/2017Josandeep Lagunas PA-C 01/31/2018 12:18 PM SignedHISTORY AND PHYSICALLesaubreyamaris Nicholson Ameena1972REFERRING PHYSICIAN: Leobardo Mahmood [facility] COMPLAINT: Consult (Consult Colonoscopy/ EGD)HPI: The patient is a 48 year old male referred for endoscopy. Pamela noteshistory of Familial Adenomatous Polyposis and requires regular endoscopicsurveillance, has had multiple endoscopies with polypectomies. He ismaintained on an annual colonoscopy schedule and notes he had also beeninstructed to have EGD every year, is due for EGD this year. Patient deniesany change in bowel habits, abdominal pain or other concerns currently. Hismost recent endoscopy reports have been reviewed.The patient is being seen by me today at the request of Dr. Mahmood for my opinionand advice regarding surveillance endoscopy for FAP. Of note, patient wasactually already scheduled for colonoscopy as Open Access for next week,however this does not reflect the EGD which is also needed this year.Additionally, patient is scheduled for moderate sedation, last severalendoscopy procedures have been done under Monitored Anesthetic Care. Thepatient denies any recall from prior procedures. Has sleep apnea and wearsCPAP, otherwise denies breathing problems and denies any cardiac issues. Hedoes note that since he will need the EGD in addition to colonoscopy this year,he would prefer the heavier sedation.PAST MEDICAL HISTORYDiagnosis Date- Benign neoplasm of colon- Diaphragmatic hernia without mention of obstruction or gangrene- Esophageal reflux- Familial adenomatous polyposis 11/2013 APC mutation- Family history of malignant neoplasm of gastrointestinal tract- Obstructive sleep apnea on cpap- Pure hypercholesterolemia- Scarlet fever as a child- Uncontrolled type 2 diabetes mellitus without complication, without long-termcurrent use of insulin ([facility]) 11/22/2015- Unspecified essential hypertension- Unspecified hypothyroidismPAST SURGICAL HISTORYProcedure Laterality Date- COLONOS W/REM POLYP SNARE polyps - cecum - multiple small, 40cm- 3, and rectum- COLONOS W/REM POLYP SNARE 02/04/2017 For adenomatous polyps-history of familial adenomatous galaimwcq-zvq-hiybjxzibk-up- COLONOSCOP W/ OR W/O BRSH SPEC 09/24/2013 Colonoscopy- COLONOSCOP W/ OR W/O BRSH SPEC 11/26/14 Colonoscopy- COLONOSCOP W/ OR W/O BRSH SPEC 12/08/15 Colonoscopy (MAC)- EGD W/O BRSH SPECIMEN W/BX hiatal hernia - moderate- EGD W/O OR W/BRUSH/WASH 05/28/2014 EGD- EGD W/O OR W/BRUSH/WASH 12/08/15 EGD (MAC)- F COLONOSCOPY WITH POLYPECTOMY 02/05/13 multiple small adenomatous colon polyps removed-patient needs repeat scope in2 years- PAST SURGICAL HISTORY OF left great toe, nail removal (trauma)- PAST SURGICAL HISTORY OF 1990 ORIF right femur -- [place]- SIGMOIDOSCOPY FLEX DIAG 08/27/2013 Sigmoidoscopy, flexibleCurrent Outpatient Prescriptions:levothyroxine (SYNTHROID) 50 mcg tablet TAKE 1 TABLET DAILY WITH 200MCG TABLETlisinopril (PRINIVIL) 5 mg tablet Take 1 tablet by mouth once daily.glipiZIDE XL (GLUCOTROL XL) 5 mg 24 hr tablet Take 1 tablet by mouth everymorning.levothyroxine (SYNTHROID) 200 mcg tablet TAKE 1 TABLET BY MOUTH EVERY DAYergocalciferol, vitamin D2, (DRISDOL) 50,000 unit capsule TAKE 1 CAPSULE BYMOUTH EVERY WEEKFREESTYLE LITE STRIPS test strip Test blood sugar twice daily E11.9UNILET SUPER THIN LANCETS 30 gauge misc Test blood sugar twice daily E11.9gabapentin (NEURONTIN) 300 mg capsule TAKE 1 CAPSULE BY MOUTH AROUND 5PM ASNEEDED FOR RLS, MAY INCREASE TO UP TO 3 (THREE) CAPSULES NEEDEDmetFORMIN (GLUCOPHAGE) 500 mg tablet Take 2 tablets by mouth twice daily withmeals.CPAP On CPAP 9cmH2O. Please provide supplies. Mask per preference, heatedtubing, filters, SD card, heated humidity. Lifetime Supplies. Dx: G47.33.Fenofibrate (LOFIBRA) 160 mg tablet TAKE 1 TABLET DAILYOmeprazole 40 mg capsule Take 1 capsule by mouth once daily.multivitamin tablet Take 1 tablet by mouth once daily.cetirizine (ZYRTEC) 10 mg tablet Take 1 tablet by mouth once daily.simvastatin (ZOCOR) 20 mg tablet TAKE 1 TABLET BY MOUTH AT BEDTIMEciclopirox (LOPROX) 0.77 % cream Apply 1 application to affected area twicedaily.triamcinolone (KENALOG IN ORABASE) 0.1 % paste 1 application by DENTAL routethree times daily.fluticasone (FLONASE) 50 mcg/actuation nasal spray Use 2 Sprays in each nostrilonce daily. Rinse mouth after use.FLUoxetine (PROZAC) 20 mg capsule TAKE 1 CAPSULE BY MOUTH EVERY DAYCOMPOUNDED PRESCRIPTION Disposable filter papers for CPAP machine, old filterpapers are no good. Dx ROSEANN 327.23albuterol HFA (PROAIR HFA) 90 mcg/actuation inhaler Inhale 2 Puffs asinstructed every 6 hours as needed for Wheezing/Shortness of Breath.[place]-3 Fatty Acids-Vitamin E (FISH OIL) 1,000 mg cap Take 2 capsules by mouthonce daily.COMPOUNDED PRESCRIPTION Knee High Compression Stockings 20-30 mm, DX: chronicperipheral venous insufficiency, edemaNo current facility-administered medications for this visit.ALLERGIES: Patient has no known allergies.PERSONAL HISTORY: Social History Marital status: Spouse name: Years of education: Number of children: 2Social History Main Topics Smoking status: Former Smoker Packs/day: 1.00 Years: 5.00 Types: Cigarettes Quit date: 06/24/1997 Smokeless tobacco: Never Used Comment: ocassional cigars Alcohol use: Yes Comment: Rare for holidays Drug use: No Sexual activity: Yes Partners with: FemaleFAMILY HISTORY:FAMILY HISTORYProblem Relation Age of Onset- Coronary Artery Disease Father age 40's- Lipids Father- Hypertension Father- GI Father 100+ colonic polyps, ?colon cancer late 50s- Breast Cancer Mother 42- Stroke Paternal Grandmother- Colon Cancer Paternal Grandmother dx 40s- Diabetes Maternal GrandmotherREVIEW OF SYMPTOMS: The review of systems data was entered by the nurse and reviewed by Adrian Notes:Jess Rivas LPN 01/30/2018 10:16 AM SignedREVIEW OF SYSTEMS: General: The patient denies fatigue, NOTES weight loss, denies weightgain, denies feeling hot, and denies feelings of cold. Eyes: The patient denies glaucoma, denies eye injury/surgery, wearsglasses or contacts. Ear/Nose/Throat: The patient NOTES allergies, denies hayfever, denies earinfections, and denies bloody noses. Cardiovascular: The patient denies chest pain, denies heart disease,NOTES high blood pressure,denies cardiac stent, denies prior heart attack,denies irregular heart beat, NOTES high cholesterol, denies poor circulation,denies heart failure, other cardiac issues, denies claudication, denies coldfeet, denies peripheral arterial stent. Respiratory: The patient denies tuberculosis, denies pneumonia, deniesfrequent cough, denies pulmonary embolism, denies shortness of breath, anddenies coughing up blood. Gastrointestinal: The patient denies difficulty swallowing, NOTES acidreflux, denies ulcers, denies vomiting, denies jaundice/hepatitis, deniesgallbladder problems, denies black or tarry stools, NOTES hemorrhoids, NOTESbleeding from rectum, denies diverticulitis, denies constipation, deniesdiarrhea, denies loss of stool control, and NOTES hernias. Kidney/Bladder: The patient denies kidney stones, denies urineinfections, and denies bloody urine. Skin: The patient denies a history of skin cancer, deniesbleeding/changing moles, and denies a history of skin rash. Neurologic: The patient denies a history of epilepsy/convulsions, deniesheadaches, denies head/spinal injuries, and denies stroke/TIA. Psychiatric: The patient denies psychiatric medications, deniesdepression, and denies voices, denies substance abuse. Endocrine: The patient NOTES thyroid disorders, NOTES diabetes, anddenies hormonal problems. Hematologic: The patient denies a history of bruising, denies bleeding,and denies anemia, denies blood clots. Infections: The patient NOTES a history of measles and mumps, deniesrheumatic fever, and denies sexually transmitted diseases. Musculoskeletal: The patient denies back pain/injury, NOTES backproblems, denies sciatica, denies knee/foot trouble, denies arthritis, ordenies gout.When was patient's last Mammogram screening? N/A Last Colonoscopy: 02/2017Jess RODARTE have confirmed and edited as necessary, the PFSH and ROS obtained by others.PHYSICAL EXAMINATION:General: The patient is 48 year old male, well nourished, well hydrated in noacute distress. The patient is oriented to time, place, and person.VITALS: Blood pressure 124/86, pulse 72. There is no height or weight on fileto calculate BMI.HEENT: Normal cephalic, ataumatic, pupils are equally round, sclera areanicteric, mucous membranes are moist, oropharynx is clear. Neck has nomasses, asymmetry or lymphadenopathy.Respiratory: Clear to auscultation and percussion. Normal respiratoryexcursion and pattern.Cardiac: Examination is regular rate and rhythm.Abdominal exam: Soft, nontender, with no palpable masses. Nohepatosplenomegaly. No palpable hernias.Rectal exam: exam deferredExtremities: no clubbing, cyanosis or edema. No adenopathy.Other:LABORATORY VALUES: As NotedRADIOLOGIC STUDIES: As NotedAssessmentIMPRESSION: encounter for high-risk surveillance endoscopy due to FamilialAdenomatous PolyposisPLAN: We will plan for both upper and lower endoscopy-will rescheduleprocedure for MAC with both EGD and colonoscopy to be done at that setting.We discussed the risks and benefits of the planned endoscopy. I have informedthe patient that complications can occur including failure to complete theendoscopy and perforation. The patient had the opportunity to ask questionsconcerning the planned endoscopy. My staff has also explained the procedure tothe patient in understandable terms and has given the patient printed materialconcerning the procedure. The patient freely consents to surgery.I plan to use golytely bowel preparation for endoscopyI plan for monitored anesthetic care.Diagnoses: (D12.6) FAP (familial adenomatous polyposis) (primary encounterdiagnosis)My findings have been communicated to Dr. Mahmood via shared medical record. Thisnote will be forwarded to Dr. Leobardo Mahmood MD.Return to Clinic: The patient is instructed to follow-up with me 1 week postoperatively. NATANAEL Melissa-CReferring Provider: LEOBARDO MAHMOOD [[id number]]Allergies As of Date: 01/30/2018(No Known Allergies)Date Reviewed: 01/30/2018Reviewed by: Jose Oro LPN - Fully AssessedReason for Visit: Consult [173] Cmt: Consult Colonoscopy/ EGDPrimary Visit Diagnosis:FAP (familial adenomatous polyposis) [D12.6] Other Visit Diagnosis:Personal history of colonic polyps [Z86.010]Order(s):COLONOSCOPY, SCREENING, HIGH RISK [[id number]] Order #: [id number] FUTURE EGD [[id number]] Order #: [id number] FUTURE peg 3350-Electrolytes (GOLYTELY) 236-22.74-6.74 -5.86 gram suspensionTake 4,000 mL by mouth one time only for 1 dose.Disp: 1 BottleRfl: 0Prescriptions as of 01/30/2018 Sig: LEVOTHYROXINE 50 MCG TABLET TAKE 1 TABLET DAILY WITH 200M* LISINOPRIL 5 MG TABLET Take 1 tablet by mouth once d* GLIPIZIDE ER 5 MG TABLET, EXT* Take 1 tablet by mouth every * LEVOTHYROXINE 200 MCG TABLET TAKE 1 TABLET BY MOUTH EVERY * ERGOCALCIFEROL (VITAMIN D2) 5* TAKE 1 CAPSULE BY MOUTH EVERY* FREESTYLE LITE STRIPS Test blood sugar twice daily * UNILET SUPER THIN LANCETS 30 * Test blood sugar twice daily * GABAPENTIN 300 MG CAPSULE TAKE 1 CAPSULE BY MOUTH AROUN* METFORMIN 500 MG TABLET Take 2 tablets by mouth twice* CPAP On CPAP 9cmH2O. Please provid* FENOFIBRATE 160 MG TABLET TAKE 1 TABLET DAILY OMEPRAZOLE 40 MG CAPSULE,MARIAELENA* Take 1 capsule by mouth once * MULTIVITAMIN TABLET Take 1 tablet by mouth once d* CETIRIZINE 10 MG TABLET Take 1 tablet by mouth once d* SIMVASTATIN 20 MG TABLET TAKE 1 TABLET BY MOUTH AT BED* CICLOPIROX 0.77 % TOPICAL CRE* Apply 1 application to affect* TRIAMCINOLONE ACETONIDE 0.1 %* 1 application by DENTAL route* FLUTICASONE 50 MCG/ACTUATION * Use 2 Sprays in each nostril * FLUOXETINE 20 MG CAPSULE TAKE 1 CAPSULE BY MOUTH EVERY* COMPOUNDED PRESCRIPTION Disposable filter papers for * ALBUTEROL SULFATE HFA 90 MCG/* Inhale 2 Puffs as instructed * [place]-3 FATTY ACIDS-VITAMIN E* Take 2 capsules by mouth once* PEG 3350-ELECTROLYTES 236 GRA* Take 4,000 mL by mouth one ti* COMPOUNDED PRESCRIPTION Knee High Compression Stockin*Problem List As Of Date 01/30/2018 Noted Resolved Routine General Medical Examination at a [facility]*INVALID FOR*09/07/2013 Class: Chronic More... BENIGN HYPERTENSION [I10] INVALID FOR* More... MIXED HYPERLIPIDEMIA [E78.2] INVALID FOR* OBESITY NOS [E66.9] INVALID FOR* ESOPHAGEAL REFLUX [K21.9] INVALID FOR* FAM HX-CARDIOVAS DIS NEC [Z82.49] INVALID FOR* More... FAMILY HX GI MALIGNANCY [Z80.0] INVALID FOR* More... IRON DEFIC ANEMIA NOS [D50.9] INVALID FOR* More... ALLERGIC RHINITIS NOS [J30.9] INVALID FOR* More... Benign Neoplasm of Colon [D12.6] INVALID FOR* More... HIATAL HERNIA [K44.9] INVALID FOR* Hypothyroidism (acquired) [E03.9] INVALID FOR* ROSEANN (obstructive sleep apnea) [G47.33] INVALID FOR* More... RLS (restless legs syndrome) [G25.81] INVALID FOR* PTSD (post-traumatic stress disorder) [F43.10] INVALID FOR* Familial adenomatous polyposis [D12.6] INVALID FOR* Vitamin D deficiency [E55.9] INVALID FOR* Uncontrolled type 2 diabetes mellitus without c*INVALID FOR*11/13/2016 Obsessive-compulsive disorder [F42.9] INVALID FOR* FAP (familial adenomatous polyposis) [D12.6] INVALID FOR*12/08/2015 History of colonic polyps [Z86.010] INVALID FOR*12/08/2015 Gastroesophageal reflux disease [K21.9] INVALID FOR*12/08/2015 Controlled type 2 diabetes mellitus without com*INVALID FOR*06/24/2017Visit Notes:>> Jess Rivas RAJESH Iwona Jan 30, 2018 10:15 AM Status: SignedREVIEW OF SYSTEMS: General: The patient denies fatigue, NOTES weight loss, deniesweight gain, denies feeling hot, and denies feelings of cold. Eyes: The patient denies glaucoma, denies eye injury/surgery, wearsglasses or contacts. Ear/Nose/Throat: The patient NOTES allergies, denies hayfever,denies ear infections, and denies bloody noses. Cardiovascular: The patient denies chest pain, denies heart disease,NOTES high blood pressure,denies cardiac stent, denies prior heart attack,denies irregular heart beat, NOTES high cholesterol, denies poorcirculation, denies heart failure, other cardiac issues, deniesclaudication, denies cold feet, denies peripheral arterial stent. Respiratory: The patient denies tuberculosis, denies pneumonia,denies frequent cough, denies pulmonary embolism, denies shortness ofbreath, and denies coughing up blood. Gastrointestinal: The patient denies difficulty swallowing, NOTESacid reflux, denies ulcers, denies vomiting, denies jaundice/hepatitis,denies gallbladder problems, denies black or tarry stools, NOTEShemorrhoids, NOTES bleeding from rectum, denies diverticulitis, deniesconstipation, denies diarrhea, denies loss of stool control, and NOTEShernias. Kidney/Bladder: The patient denies kidney stones, denies urineinfections, and denies bloody urine. Skin: The patient denies a history of skin cancer, deniesbleeding/changing moles, and denies a history of skin rash. Neurologic: The patient denies a history of epilepsy/convulsions,denies headaches, denies head/spinal injuries, and denies stroke/TIA. Psychiatric: The patient denies psychiatric medications, deniesdepression, and denies voices, denies substance abuse. Endocrine: The patient NOTES thyroid disorders, NOTES diabetes, anddenies hormonal problems. Hematologic: The patient denies a history of bruising, deniesbleeding, and denies anemia, denies blood clots. Infections: The patient NOTES a history of measles and mumps, deniesrheumatic fever, and denies sexually transmitted diseases. Musculoskeletal: The patient denies back pain/injury, NOTES backproblems, denies sciatica, denies knee/foot trouble, denies arthritis, ordenies gout.When was patient's last Mammogram screening? N/A Last Colonoscopy: 02/2017Jess Rivas LPNPrescriptions ordered this encounter Disp Refills Start End PEG 3350-ELECTROLYTES 236 GRAM-22.74* 1 Eduardo* 0 01/31/2018 01/31/2018 Route: ORAL Sig: Take 4,000 mL by mouth one time only for 1 dose.Follow-up and Disposition History RecordedEncounter Number: [id number] Status:Closed by CECY LAGUNAS PA-C on 01/31/18 PROGRESS Observed: 01/10/2018 Status: COMPLETED Source: [place] 11:03 AM [facility] REPOSITORY HNO ID: [id number]: Leobardo Urias: (none)Author Type: PhysicianType: Progress NotesFiled: 01/10/2018 11:19 AMNote Text:No chief complaint on file.HPI: Patient presents today for office visit for folow up.DM: seeing pharmacy. Is much more active. hba1c is improving. Almost togoal.No hypoglycemic spells.HYPOTHYROID:tsh is good.Energy level is good.HYPERTENSION:no chest pain or shortness of breath.No edema.HLD:no myalgias. Labs at goal.VIT D:overall feeling well.PSYCH:emotionally doing well. Feels well being outside a lotOSA:sleeping well.Component Latest Ref Rng AND Units 08/23/2017 10/03/2017 01/03/2018Protein, Total 6.3 - 8.0 g/dL 8.0Albumin 3.9 - 4.9 g/dL 4.6Calcium 8.5 - 10.2 mg/dL 9.2 9.2Bilirubin, Total 0.2 - 1.3 mg/dL 0.3Alkaline Phosphatase 36 - 108 U/L 54AST 14 - 40 U/L 26Glucose 74 - 99 mg/dL 128 (H) 132 (H)BUN 9 - 24 mg/dL 17 17Creatinine 0.73 - 1.22 mg/dL 1.01 0.92Sodium 136 - 144 mmol/L 137 140Potassium 3.7 - 5.1 mmol/L 3.8 4.3Chloride 97 - 105 mmol/L 96 (L) 103CO2 22 - 30 mmol/L 26 23Anion Gap 9 - 18 mmol/L 15 14ALT 10 - 54 U/L 31eGFR- >60 >60eGFR-All Other Races . >60 >60Cholesterol, Total <200 mg/dL 158Triglyceride <150 mg/dL 175 (H)HDL Cholesterol >39 mg/dL 38 (L)LDL Cholesterol <100 mg/dL 85Non HDL Cholesterol <130 mg/dL 120Fasting Time hrs 12VLDL Cholesterol <30 mg/dL 35 (H)TC:HDL Ratio <5.10 4.16LDL:HDL Ratio <2.54 2.24Hemoglobin A1C 4.3 - 5.6 % 8.3 (H) 7.3 (H)Estimated Average Glucose mg/dL 192 163TSH 0.400 - 5.500 uU/mL 0.921MEDICATIONS:Current Outpatient Prescriptions:levothyroxine (SYNTHROID) 50 mcg tablet TAKE 1 TABLET DAILY WITH 200MCGTABLETlisinopril (PRINIVIL) 5 mg tablet Take 1 tablet by mouth once daily.glipiZIDE XL (GLUCOTROL XL) 5 mg 24 hr tablet Take 1 tablet by mouth everymorning.levothyroxine (SYNTHROID) 200 mcg tablet TAKE 1 TABLET BY MOUTH EVERY DAYergocalciferol, vitamin D2, (DRISDOL) 50,000 unit capsule TAKE 1 CAPSULEBY MOUTH EVERY WEEKFREESTYLE LITE STRIPS test strip Test blood sugar twice daily E11.9UNILET SUPER THIN LANCETS 30 gauge misc Test blood sugar twice daily E11.9gabapentin (NEURONTIN) 300 mg capsule TAKE 1 CAPSULE BY MOUTH AROUND 5PMAS NEEDED FOR RLS, MAY INCREASE TO UP TO 3 (THREE) CAPSULES NEEDEDmetFORMIN (GLUCOPHAGE) 500 mg tablet Take 2 tablets by mouth twice dailywith meals.CPAP On CPAP 9cmH2O. Please provide supplies. Mask per preference, heatedtubing, filters, SD card, heated humidity. Lifetime Supplies. Dx: G47.33.Fenofibrate (LOFIBRA) 160 mg tablet TAKE 1 TABLET DAILYOmeprazole 40 mg capsule Take 1 capsule by mouth once daily.multivitamin tablet Take 1 tablet by mouth once daily.cetirizine (ZYRTEC) 10 mg tablet Take 1 tablet by mouth once daily.simvastatin (ZOCOR) 20 mg tablet TAKE 1 TABLET BY MOUTH AT BEDTIMEciclopirox (LOPROX) 0.77 % cream Apply 1 application to affected areatwice daily.triamcinolone (KENALOG IN ORABASE) 0.1 % paste 1 application by DENTALroute three times daily.fluticasone (FLONASE) 50 mcg/actuation nasal spray Use 2 Sprays in eachnostril once daily. Rinse mouth after use.FLUoxetine (PROZAC) 20 mg capsule TAKE 1 CAPSULE BY MOUTH EVERY DAYCompression Stockings Knee High Compression Stockings 20-30 mm, DX:chronic peripheral venous insufficiency, edemaCOMPOUNDED PRESCRIPTION Disposable filter papers for CPAP machine, oldfilter papers are no good. Dx ROSEANN 327.23albuterol HFA (PROAIR HFA) 90 mcg/actuation inhaler Inhale 2 Puffs asinstructed every 6 hours as needed for Wheezing/Shortness of Breath.[place]-3 Fatty Acids-Vitamin E (FISH OIL) 1,000 mg cap Take 2 capsules bymouth once daily.No current facility-administered medications for this visit.ALLERGIES:ALLERGIESNo Known AllergiesPAST MEDICAL HISTORYDiagnosis Date- Benign neoplasm of colon- Diaphragmatic hernia without mention of obstruction or gangrene- Esophageal reflux- Familial adenomatous polyposis 11/2013 APC mutation- Family history of malignant neoplasm of gastrointestinal tract- Obstructive sleep apnea on cpap- Pure hypercholesterolemia- Scarlet fever as a child- Uncontrolled type 2 diabetes mellitus without complication, withoutlong-term current use of insulin (HCC) 11/22/2015- Unspecified essential hypertension- Unspecified hypothyroidismPAST SURGICAL HISTORYProcedure Laterality Date- COLONOS W/REM POLYP SNARE polyps - cecum - multiple small, 40cm- 3, and rectum- COLONOS W/REM POLYP SNARE 02/04/2017 For adenomatous polyps-history of familial adenomatous nazmxxrpa-rxi-nizkzlhckr-up- COLONOSCOP W/ OR W/O BRSH SPEC 09/24/2013 Colonoscopy- COLONOSCOP W/ OR W/O BRSH SPEC 11/26/14 Colonoscopy- COLONOSCOP W/ OR W/O BRSH SPEC 12/08/15 Colonoscopy (MAC)- EGD W/O BRSH SPECIMEN W/BX hiatal hernia - moderate- EGD W/O OR W/BRUSH/WASH 05/28/2014 EGD- EGD W/O OR W/BRUSH/WASH 12/08/15 EGD (MAC)- F COLONOSCOPY WITH POLYPECTOMY 02/05/13 multiple small adenomatous colon polyps removed-patient needs repeatscope in 2 years- PAST SURGICAL HISTORY OF left great toe, nail removal (trauma)- PAST SURGICAL HISTORY OF 1990 ORIF right femur -- [place]- SIGMOIDOSCOPY FLEX DIAG 08/27/2013 Sigmoidoscopy, flexibleFAMILY HISTORYProblem Relation Age of Onset- Coronary Artery Disease Father age 40's- Lipids Father- Hypertension Father- GI Father 100+ colonic polyps, ?colon cancer late 50s- Breast Cancer Mother 42- Stroke Paternal Grandmother- Colon Cancer Paternal Grandmother dx 40s- Diabetes Maternal Grandmother Social History Marital status: Spouse name: Years of education: Number of children: 2Social History Main Topics Smoking status: Former Smoker Packs/day: 1.00 Years: 5.00 Types: Cigarettes Quit date: 06/24/1997 Smokeless tobacco: Never Used Comment: ocassional cigars Alcohol use: Yes Comment: Rare for holidays Drug use: No Sexual activity: Yes Partners with: FemaleReviewed current medications, allergies, past medical history, surgicalhistory, family history and social history today.REVIEW OF SYSTEMSAll other reviewed and negative other than HPI.HEALTH MAINTENANCE:Reviewed health maintenance issues today and recommended the following indetail.BLOOD PRESSURE CONTROLLED due on 01/04/1990COLORECTAL CANCER SCREENING,SEE MODIFIER due on 02/04/2018-scheduled.VITALS:BP 110/62 Pulse 88 Resp 16 Wt 115.7 kg (255 lb) BMI 37.66kg/m?Last 4 Encounter Wt Readings: Date: Wt: 01/10/2018 115.7 kg (255 lb) 08/23/2017 109.3 kg (241 lb) 07/29/2017 108.9 kg (240 lb) 06/20/2017 109.5 kg (241 lb 6.4 oz)PHYSICAL EXAMINATION:General appearance: Well appearing, alert, in no acute distress,well-hydrated, well nourished.Skin: Skin color, texture, turgor normal, no suspicious rashes or lesionsHead: Normocephalic, no masses, lesions, tenderness or abnormalitiesLungs: Lungs clear to auscultation. No wheezing, rhonchi, ralesHeart: RRR without murmur, gallop, or rubs. No ectopyAbdomen: Normal abdominal exam, Abdomen soft, non-tender. Bowel soundsnormal. No masses, organomegalyExtremities: No deformities, edema, skin discoloration, clubbing orcyanosis. Good capillary refill.Musculoskeletal: No joint swelling, deformity, or tendernessASSESSMENT/PLAN:1. Essential hypertension, benign - ICD9: 401.1, ICD10: I10 (primarydiagnosis)- good control- Continue current medication(s)- Recommended regular aerobic exercise.- Recommend home blood pressure monitoring, to bring results in on nextvisit- Goal of BP <130/802. Mixed hyperlipidemia - ICD9: 272.2, ICD10: E78.2- good control- Encouraged following a low fat, low cholesterol diet.3. Hypothyroidism (acquired) - ICD9: 244.9, ICD10: E03.9- Instructed patient on importance of taking on an empty stomach eitherfirst thing in the morning or at bedtime.4. ROSEANN (obstructive sleep apnea) - ICD9: 327.23, ICD10: G47.33- continue cpap.5. RLS (restless legs syndrome) - ICD9: 333.94, ICD10: G25.81- doing well.6. Gastroesophageal reflux disease without esophagitis - ICD9: 530.81,ICD10: K21.9- Call if any worsening.7. PTSD (post-traumatic stress disorder) - ICD9: 309.81, ICD10: F43.10- continue meds.8. Venous insufficiency (chronic) (peripheral) - ICD9: 459.81, ICD10:I87.2- COMPOUNDED PRESCRIPTION9. Peripheral edema - ICD9: 782.3, ICD10: R60.9- continue hose- COMPOUNDED [id number]. Vitamin D deficiency - ICD9: 268.9, ICD10: E55.9- recheck labs.- VITAMIN D 25 HYDROXYANNA Yee in three months and prn. CNOV Observed: 01/10/2018 Status: COMPLETED Source: [place] 10:40 AM [facility] REPOSITORY Office Visit (FAMPWS) PAMELA LINDQUIST ([id number]) 1970 MDate Time Provider Department01/10/18 10:40 AM [facility] During your visit today, we recorded the following information about you: Pulse Respiration Blood pressure Weight 88/minute 16/minute 110/62 115.7 kgLeobardo Mahmood MD 01/10/2018 11:19 AM SignedNo chief complaint on file.HPI: Patient presents today for office visit for folow up.DM: seeing pharmacy. Is much more active. hba1c is improving. Almost to goal.No hypoglycemic spells.HYPOTHYROID:tsh is good.Energy level is good.HYPERTENSION:no chest pain or shortness of breath.No edema.HLD:no myalgias. Labs at goal.VIT D:overall feeling well.PSYCH:emotionally doing well. Feels well being outside a lotOSA:sleeping well.Component Latest Ref Rng AND Units 08/23/2017 10/03/2017 01/03/2018Protein, Total 6.3 - 8.0 g/dL 8.0Albumin 3.9 - 4.9 g/dL 4.6Calcium 8.5 - 10.2 mg/dL 9.2 9.2Bilirubin, Total 0.2 - 1.3 mg/dL 0.3Alkaline Phosphatase 36 - 108 U/L 54AST 14 - 40 U/L 26Glucose 74 - 99 mg/dL 128 (H) 132 (H)BUN 9 - 24 mg/dL 17 17Creatinine 0.73 - 1.22 mg/dL 1.01 0.92Sodium 136 - 144 mmol/L 137 140Potassium 3.7 - 5.1 mmol/L 3.8 4.3Chloride 97 - 105 mmol/L 96 (L) 103CO2 22 - 30 mmol/L 26 23Anion Gap 9 - 18 mmol/L 15 14ALT 10 - 54 U/L 31eGFR- >60 >60eGFR-All Other Races . >60 >60Cholesterol, Total <200 mg/dL 158Triglyceride <150 mg/dL 175 (H)HDL Cholesterol >39 mg/dL 38 (L)LDL Cholesterol <100 mg/dL 85Non HDL Cholesterol <130 mg/dL 120Fasting Time hrs 12VLDL Cholesterol <30 mg/dL 35 (H)TC:HDL Ratio <5.10 4.16LDL:HDL Ratio <2.54 2.24Hemoglobin A1C 4.3 - 5.6 % 8.3 (H) 7.3 (H)Estimated Average Glucose mg/dL 192 163TSH 0.400 - 5.500 uU/mL 0.921MEDICATIONS:Current Outpatient Prescriptions:levothyroxine (SYNTHROID) 50 mcg tablet TAKE 1 TABLET DAILY WITH 200MCG TABLETlisinopril (PRINIVIL) 5 mg tablet Take 1 tablet by mouth once daily.glipiZIDE XL (GLUCOTROL XL) 5 mg 24 hr tablet Take 1 tablet by mouth everymorning.levothyroxine (SYNTHROID) 200 mcg tablet TAKE 1 TABLET BY MOUTH EVERY DAYergocalciferol, vitamin D2, (DRISDOL) 50,000 unit capsule TAKE 1 CAPSULE BYMOUTH EVERY WEEKFREESTYLE LITE STRIPS test strip Test blood sugar twice daily E11.9UNILET SUPER THIN LANCETS 30 gauge misc Test blood sugar twice daily E11.9gabapentin (NEURONTIN) 300 mg capsule TAKE 1 CAPSULE BY MOUTH AROUND 5PM ASNEEDED FOR RLS, MAY INCREASE TO UP TO 3 (THREE) CAPSULES NEEDEDmetFORMIN (GLUCOPHAGE) 500 mg tablet Take 2 tablets by mouth twice daily withmeals.CPAP On CPAP 9cmH2O. Please provide supplies. Mask per preference, heatedtubing, filters, SD card, heated humidity. Lifetime Supplies. Dx: G47.33.Fenofibrate (LOFIBRA) 160 mg tablet TAKE 1 TABLET DAILYOmeprazole 40 mg capsule Take 1 capsule by mouth once daily.multivitamin tablet Take 1 tablet by mouth once daily.cetirizine (ZYRTEC) 10 mg tablet Take 1 tablet by mouth once daily.simvastatin (ZOCOR) 20 mg tablet TAKE 1 TABLET BY MOUTH AT BEDTIMEciclopirox (LOPROX) 0.77 % cream Apply 1 application to affected area twicedaily.triamcinolone (KENALOG IN ORABASE) 0.1 % paste 1 application by DENTAL routethree times daily.fluticasone (FLONASE) 50 mcg/actuation nasal spray Use 2 Sprays in each nostrilonce daily. Rinse mouth after use.FLUoxetine (PROZAC) 20 mg capsule TAKE 1 CAPSULE BY MOUTH EVERY DAYCompression Stockings Knee High Compression Stockings 20-30 mm, DX: chronicperipheral venous insufficiency, edemaCOMPOUNDED PRESCRIPTION Disposable filter papers for CPAP machine, old filterpapers are no good. Dx ROSEANN 327.23albuterol HFA (PROAIR HFA) 90 mcg/actuation inhaler Inhale 2 Puffs asinstructed every 6 hours as needed for Wheezing/Shortness of Breath.[place]- 3 Fatty Acids-Vitamin E (FISH OIL) 1,000 mg cap Take 2 capsules by mouthonce daily.No current facility-administered medications for this visit.ALLERGIES:ALLERGIESNo Known AllergiesPAST MEDICAL HISTORYDiagnosis Date- Benign neoplasm of colon- Diaphragmatic hernia without mention of obstruction or gangrene- Esophageal reflux- Familial adenomatous polyposis 11/2013 APC mutation- Family history of malignant neoplasm of gastrointestinal tract- Obstructive sleep apnea on cpap- Pure hypercholesterolemia- Scarlet fever as a child- Uncontrolled type 2 diabetes mellitus without complication, without long-termcurrent use of insulin ([facility]) 11/22/2015- Unspecified essential hypertension- Unspecified hypothyroidismPAST SURGICAL HISTORYProcedure Laterality Date- COLONOS W/REM POLYP SNARE polyps - cecum - multiple small, 40cm- 3, and rectum- COLONOS W/REM POLYP SNARE 02/04/2017 For adenomatous polyps-history of familial adenomatous kdmjygfyf-mjn-zhbiizfmoj-up- COLONOSCOP W/ OR W/O BRSH SPEC 09/24/2013 Colonoscopy- COLONOSCOP W/ OR W/O BRSH SPEC 11/26/14 Colonoscopy- COLONOSCOP W/ OR W/O BRSH SPEC 12/08/15 Colonoscopy ([facility])- EGD W/O BRSH SPECIMEN W/BX hiatal hernia - moderate- EGD W/O OR W/BRUSH/WASH 05/28/2014 EGD- EGD W/O OR W/BRUSH/WASH 12/08/15 EGD ([facility])- F COLONOSCOPY WITH POLYPECTOMY 02/05/13 multiple small adenomatous colon polyps removed-patient needs repeat scope in2 years- PAST SURGICAL HISTORY OF left great toe, nail removal (trauma)- PAST SURGICAL HISTORY OF 1990 ORIF right femur -- [place]- SIGMOIDOSCOPY FLEX DIAG 08/27/2013 Sigmoidoscopy, flexibleFAMILY HISTORYProblem Relation Age of Onset- Coronary Artery Disease Father age 40's- Lipids Father- Hypertension Father- GI Father 100+ colonic polyps, ?colon cancer late 50s- Breast Cancer Mother 42- Stroke Paternal Grandmother- Colon Cancer Paternal Grandmother dx 40s- Diabetes Maternal Grandmother Social History Marital status: Spouse name: Years of education: Number of children: 2Social History Main Topics Smoking status: Former Smoker Packs/day: 1.00 Years: 5.00 Types: Cigarettes Quit date: 06/24/1997 Smokeless tobacco: Never Used Comment: ocassional cigars Alcohol use: Yes Comment: Rare for holidays Drug use: No Sexual activity: Yes Partners with: FemaleReviewed current medications, allergies, past medical history, surgicalhistory, family history and social history today.REVIEW OF SYSTEMSAll other reviewed and negative other than HPI.HEALTH MAINTENANCE:Reviewed health maintenance issues today and recommended the following indetail.BLOOD PRESSURE CONTROLLED due on 01/04/1990COLORECTAL CANCER SCREENING,SEE MODIFIER due on 02/04/2018-scheduled.VITALS:BP 110/62 Pulse 88 Resp 16 Wt 115.7 kg (255 lb) BMI 37.66 kg/m?Last 4 Encounter Wt Readings: Date: Wt: 01/10/2018 115.7 kg (255 lb) 08/23/2017 109.3 kg (241 lb) 07/29/2017 108.9 kg (240 lb) 06/20/2017 109.5 kg (241 lb 6.4 oz)PHYSICAL EXAMINATION:General appearance: Well appearing, alert, in no acute distress, well-hydrated,well nourished.Skin: Skin color, texture, turgor normal, no suspicious rashes or lesionsHead: Normocephalic, no masses, lesions, tenderness or abnormalitiesLungs: Lungs clear to auscultation. No wheezing, rhonchi, ralesHeart: RRR without murmur, gallop, or rubs. No ectopyAbdomen: Normal abdominal exam, Abdomen soft, non-tender. Bowel sounds normal.No masses, organomegalyExtremities: No deformities, edema, skin discoloration, clubbing or cyanosis.Good capillary refill.Musculoskeletal: No joint swelling, deformity, or tendernessASSESSMENT/PLAN:1. Essential hypertension, benign - ICD9: 401.1, ICD10: I10 (primary diagnosis)- good control- Continue current medication(s)- Recommended regular aerobic exercise.- Recommend home blood pressure monitoring, to bring results in on next visit- Goal of BP <130/802. Mixed hyperlipidemia - ICD9: 272.2, ICD10: E78.2- good control- Encouraged following a low fat, low cholesterol diet.3. Hypothyroidism (acquired) - ICD9: 244.9, ICD10: E03.9- Instructed patient on importance of taking on an empty stomach either firstthing in the morning or at bedtime.4. ROSEANN (obstructive sleep apnea) - ICD9: 327.23, ICD10: G47.33- continue cpap.5. RLS (restless legs syndrome) - ICD9: 333.94, ICD10: G25.81- doing well.6. Gastroesophageal reflux disease without esophagitis - ICD9: 530.81, ICD10:K21.9- Call if any worsening.7. PTSD (post-traumatic stress disorder) - ICD9: 309.81, ICD10: F43.10- continue meds.8. Venous insufficiency (chronic) (peripheral) - ICD9: 459.81, ICD10: I87.2- COMPOUNDED PRESCRIPTION9. Peripheral edema - ICD9: 782.3, ICD10: R60.9- continue hose- COMPOUNDED [id number]. Vitamin D deficiency - ICD9: 268.9, ICD10: E55.9- recheck labs.- VITAMIN D 25 HYDROXYANNA Yee in three months and prn.Referring Provider: SELF [[id number]]Allergies As of Date: 01/10/2018(No Known Allergies)Date Reviewed: 06/20/2017Reviewed by: Samantha Zamora LPN - Fully AssessedPrimary Visit Diagnosis:Essential hypertension, benign [I10] Other Visit Diagnoses:Mixed hyperlipidemia [E78.2] Hypothyroidism (acquired) [E03.9] ROSEANN (obstructive sleep apnea) [G47.33] RLS (restless legs syndrome) [G25.81] Gastroesophageal reflux disease without esophagitis [K21.9] PTSD (post-traumatic stress disorder) [F43.10] Venous insufficiency (chronic) (peripheral) [I87.2] Peripheral edema [R60.9] Vitamin D deficiency [E55.9]Order(s):COMPOUNDED PRESCRIPTIONKnee High Compression Stockings 20-30 mm, DX: chronic peripheral venous insufficiency, edemaDisp: 4 EachRfl: 0 VITAMIN D 25 HYDROXY [SQVITD] Order #: [id number] FUTUREPrescriptions as of 01/10/2018 Sig: COMPOUNDED PRESCRIPTION Knee High Compression Stockin* LEVOTHYROXINE 50 MCG TABLET TAKE 1 TABLET DAILY WITH 200M* LISINOPRIL 5 MG TABLET Take 1 tablet by mouth once d* GLIPIZIDE ER 5 MG TABLET, EXT* Take 1 tablet by mouth every * LEVOTHYROXINE 200 MCG TABLET TAKE 1 TABLET BY MOUTH EVERY * ERGOCALCIFEROL (VITAMIN D2) 5* TAKE 1 CAPSULE BY MOUTH EVERY* FREESTYLE LITE STRIPS Test blood sugar twice daily * UNILET SUPER THIN LANCETS 30 * Test blood sugar twice daily * GABAPENTIN 300 MG CAPSULE TAKE 1 CAPSULE BY MOUTH AROUN* METFORMIN 500 MG TABLET Take 2 tablets by mouth twice* CPAP On CPAP 9cmH2O. Please provid* FENOFIBRATE 160 MG TABLET TAKE 1 TABLET DAILY OMEPRAZOLE 40 MG CAPSULE,MARIAELENA* Take 1 capsule by mouth once * MULTIVITAMIN TABLET Take 1 tablet by mouth once d* CETIRIZINE 10 MG TABLET Take 1 tablet by mouth once d* SIMVASTATIN 20 MG TABLET TAKE 1 TABLET BY MOUTH AT BED* CICLOPIROX 0.77 % TOPICAL CRE* Apply 1 application to affect* TRIAMCINOLONE ACETONIDE 0.1 %* 1 application by DENTAL route* FLUTICASONE 50 MCG/ACTUATION * Use 2 Sprays in each nostril * FLUOXETINE 20 MG CAPSULE TAKE 1 CAPSULE BY MOUTH EVERY* COMPOUNDED PRESCRIPTION Disposable filter papers for * ALBUTEROL SULFATE HFA 90 MCG/* Inhale 2 Puffs as instructed * OMEGA-3 FATTY ACIDS-VITAMIN E* Take 2 capsules by mouth once*Problem List As Of Date 01/10/2018 Noted Resolved Routine General Medical Examination at a [facility]*INVALID FOR*09/07/2013 Class: Chronic More... BENIGN HYPERTENSION [I10] INVALID FOR* More... MIXED HYPERLIPIDEMIA [E78.2] INVALID FOR* OBESITY NOS [E66.9] INVALID FOR* ESOPHAGEAL REFLUX [K21.9] INVALID FOR* FAM HX-CARDIOVAS DIS NEC [Z82.49] INVALID FOR* More... FAMILY HX GI MALIGNANCY [Z80.0] INVALID FOR* More... IRON DEFIC ANEMIA NOS [D50.9] INVALID FOR* More... ALLERGIC RHINITIS NOS [J30.9] INVALID FOR* More... Benign Neoplasm of Colon [D12.6] INVALID FOR* More... HIATAL HERNIA [K44.9] INVALID FOR* Hypothyroidism (acquired) [E03.9] INVALID FOR* ROSEANN (obstructive sleep apnea) [G47.33] INVALID FOR* More... RLS (restless legs syndrome) [G25.81] INVALID FOR* PTSD (post-traumatic stress disorder) [F43.10] INVALID FOR* Familial adenomatous polyposis [D12.6] INVALID FOR* Vitamin D deficiency [E55.9] INVALID FOR* Uncontrolled type 2 diabetes mellitus without c*INVALID FOR*11/13/2016 Obsessive-compulsive disorder [F42.9] INVALID FOR* FAP (familial adenomatous polyposis) [D12.6] INVALID FOR*12/08/2015 History of colonic polyps [Z86.010] INVALID FOR*12/08/2015 Gastroesophageal reflux disease [K21.9] INVALID FOR*12/08/2015 Controlled type 2 diabetes mellitus without com*INVALID FOR*06/24/2017Prescriptions ordered this encounter Disp Refills Start End COMPOUNDED PRESCRIPTION 4 Ea* 0 01/10/2018 Sig: Knee High Compression Stockings 20-30 mm, DX: chronic peripheral venous insufficiency, edemaMedications Discontinued During This Encounter glipiZIDE XL (GLUCOTROL XL) 5 mg 24 * 30 t* 1 12/18/2017 01/10/2018 Route: ORAL Sig: Take 1 tablet by mouth every morning. Disc: Duplicate Entry Compression Stockings 4 Ea* 0 11/28/2015 01/10/2018 Class: Print RX Sig: Knee High Compression Stockings 20-30 mm, DX: chronic peripheral venous insufficiency, edema Disc: Reason for discontinue is not on file. Status:Closed by LEOBARDO MAHMOOD MD on 01/10/18 BASIC METABOLIC PANL Collected: 01/03/2018 Status: F Source: [place] 10:38 AM [facility] REPOSITORY TYPE CODE TESTS RESULT OUT OF REFERENCE UNITS RANGE LAB GLU High 74-99 mg/dL Glucose 132 Result Comment: The [place] Diabetes Association (ADA) provides guidance for cutoff values for fasting glucose and r andom glucose. The ADA defines fasting as no caloric intake for at least 8 hours. Fasting plasma glucose results between 100 to 125 mg/dL indicate increased risk for diabetes (prediabetes). Fasting plasma glucose results greater than or equal to 126 mg/dL meet the criteria for diagnosis of diabetes. In the absence of unequivocal hyperglycemia, results should be confirmed by repeat testing. In a patient with classic symptoms of hyperglycemia or hyperglycemic crisis, random plasma glucose results greater than or equal to 200 mg/dL meet the criteria for diagnosis of diabetes. Reference: Standards of Medical Care in Diabetes 2016, [place] Diabetes Association. Diabetes Care. 2016.39(Suppl 1). LAB BUN 9-24 mg/dL BUN 17 LAB CRET 0.73-1.22 mg/dL Creatinine 0.92 LAB NA 136-144 mmol/L Sodium 140 LAB K 3.7-5.1 mmol/L Potassium 4.3 LAB CL 97-105 mmol/L Chloride 103 LAB CO2 22-30 mmol/L CO2 23 LAB AGAP 9-18 mmol/L Anion Gap 14 LAB CA 8.5-10.2 mg/dL Calcium, Total 9.2 LAB GFRAA eGFR- >60 Amer. LAB GFRNAA . eGFR-All Other >60 Races Result Comment: eGFR (Estimated GFR) Units of measure: mL/min/1.73 meters squared eGFR is derived from the reexpressed MDRD Study equation using the following parameters: serum creatinine, age, gender and race. The creatinine assay has been calibrated to be traceable to IDMS. An eGFR <60 mL/min/1.73m2 for >3 months is consistent with chronic kidney disease. Refer to KDOQI guidelines for clinical interpretation. In patients with unstable renal function, e.g. those with acute kidney injury, the eGFR may not accurately reflect actual GFR. Performed By: #### BMP, LIPB, HBA1C #### [facility] [address] [place], [place] [address] LIPID PANEL, BASIC Collected: 01/03/2018 Status: F Source: [place] 10:38 AM [facility] REPOSITORY TYPE CODE TESTS RESULT OUT OF REFERENCE UNITS RANGE LAB CHOL <200 mg/dL Cholesterol 158 Result Comment: <200 mg/dL, Desirable 200-239 mg/dL, Borderline high >239 mg/dL, High LAB TRIGLY High <150 mg/dL Triglyceride 175 Result Comment: <150 mg/dL, Normal 150-199 mg/dL, Borderline high 200-499 mg/dL, High >499 mg/dL, Very high LAB HDL Low >39 mg/dL HDL-Cholesterol 38 Result Comment: 40-59 mg/dL, Acceptable >59 mg/dL, High: Negative risk factor for coronary heart disease <40 mg/dL, Low: Positive risk factor for coronary heart disease LAB LDL <100 mg/dL LDL-Cholesterol 85 Result Comment: <100 mg/dL, Optimal 100-129 mg/dL, Near optimal/above optimal 130-159 mg/dL, Borderline high 160-189 mg/dL, High >189 mg/dL, Very high Secondary prevention optimal LDL Cholesterol levels are recommended to be < 70 mg/dL LAB NONHDL <130 mg/dL Non HDL Cholesterol 120 Result Comment: <130 mg/dL, Optimal 130-159 mg/dL, Near optimal/above optimal 160-189 mg/dL, Borderline high 190-219 mg/dL, High >219 mg/dL, Very high Secondary prevention optimal non HDL Cholesterol levels are recommended to be < 100 mg/dL LAB FT hrs Fasting Time 12 LAB VLDL High <30 mg/dL VLDL Cholesterol 35 LAB TCHDL <5.10 TC:HDL Ratio 4.16 LAB LDLHDL <2.54 LDL:HDL Ratio 2.24 Result Comment: Reference: 1. National Cholesterol Education Program ATP III Guideline At-A-Glance Quick Desk Reference: National Heart, Lung, and Blood [place]. National Institutes of Health. 2001: NIH Publication No. 01-3305. 2. An International Atherosclerosis Society position paper: global recommendations for the management of dyslipidemia: executive summary, Atherosclerosis. 2014: 232(2):410-413. Performed By: #### BMP, LIPB, HBA1C #### [facility] [address] [place], [place] [address] HEMOGLOBIN A1C Collected: 01/03/2018 Status: F Source: [place] 10:38 AM [facility] REPOSITORY TYPE CODE TESTS RESULT OUT OF REFERENCE UNITS RANGE LAB HGBA1C High 4.3-5.6 % Hemoglobin 7.3 A1c LAB HBA0 mg/dL Est. Average 163 Glucose Result Comment: eAG: (Estimated average glucose) is a calculated value from HgbA1c and is brewery representative of the average blood glucose level in the last 2-3 month period. Performed By: #### BMP, LIPB, HBA1C #### [facility] [address] [place], [place] [address] PROGRESS Observed: 12/24/2017 Status: COMPLETED Source: [place] 2:00 PM [facility] REPOSITORY HNO ID: [id number]: Sandeep Couch (Pharmacist)Service: (none)Author Type: PharmacistType: Progress NotesFiled: 12/24/2017 2:28 PMNote Text:TELEPHONIC APPOINTMENT?REASON FOR CONSULT: DM?GOALS: A1c <?7%CONSULTING PROVIDER: Dr. Mahmood??Date of Consult: 06/2017?Pamela Lindquist is a 47 year old male was last seen in [facility] by PCP, Dr.William Arcadio Mahmood MD on 06/20/17.INTERIM HISTORY:Reports feeling well overallWorks from home so prefers telephonic appointmentsCurrent DM Medications:Metformin 1,000mg BIDGlipizide XL 5mg once daily?Current HTN Medications:Lisinopril 5mg once daily?Preventative Medications:? On ARNAV/ARB: Yes? On Statin: Yes? On ASA: NoROS:? Patient denies CP, SOB, LORENZ, blurred vision, dizziness or lightheadedness? Patient denies symptoms of hypoglycemia (sweating, anxiety,palpitations, hunger, and tremor)? Patient denies symptoms of hyperglycemia (polyuria, polydipsia,polyphagia)? Patient denies potential medication adverse effectsDIET/EXERCISE/SOCIAL Hx:? Denies any changes since last timeMEDICATIONS:? Pill bottles are not?present.? Adherence: denies?missed doses.? Pharmacy: [facility]? Rx coverage: [employer]? Affordability: no issues? Diabetes supplies: [employer]? Organization System: noneACTIVE PROBLEM LISTEssential Hypertension, BenignMixed HyperlipidemiaObesity, UnspecifiedEsophageal RefluxFamily History of Other Cardiovascular Diseases(v17.49)Family History of Malignant Neoplasm of Gastrointestinal TractIron Deficiency Anemia, UnspecifiedAllergic Rhinitis, Cause UnspecifiedBenign Neoplasm of ColonHIATAL HERNIAHypothyroidism (Acquired)Roseann (Obstructive Sleep Apnea)Rls (Restless Legs Syndrome)Ptsd (Post-Traumatic Stress Disorder)Familial Adenomatous PolyposisVitamin D DeficiencyObsessive-Compulsive DisorderPAST MEDICAL HISTORYDiagnosis Date- Benign neoplasm of colon- Diaphragmatic hernia without mention of obstruction or gangrene- Esophageal reflux- Familial adenomatous polyposis 11/2013 APC mutation- Family history of malignant neoplasm of gastrointestinal tract- Obstructive sleep apnea on cpap- Pure hypercholesterolemia- Scarlet fever as a child- Uncontrolled type 2 diabetes mellitus without complication, withoutlong-term current use of insulin (HCC) 11/22/2015- Unspecified essential hypertension- Unspecified hypothyroidismALLERGIESNo Known AllergiesCurrent Outpatient Prescriptions:glipiZIDE XL (GLUCOTROL XL) 5 mg 24 hr tablet Take 1 tablet by mouth everymorning.glipiZIDE XL (GLUCOTROL XL) 5 mg 24 hr tablet Take 1 tablet by mouth everymorning.levothyroxine (SYNTHROID) 200 mcg tablet TAKE 1 TABLET BY MOUTH EVERY DAYergocalciferol, vitamin D2, (DRISDOL) 50,000 unit capsule TAKE 1 CAPSULEBY MOUTH EVERY WEEKFREESTYLE LITE STRIPS test strip Test blood sugar twice daily E11.9UNILET SUPER THIN LANCETS 30 gauge misc Test blood sugar twice daily E11.9gabapentin (NEURONTIN) 300 mg capsule TAKE 1 CAPSULE BY MOUTH AROUND 5PMAS NEEDED FOR RLS, MAY INCREASE TO UP TO 3 (THREE) CAPSULES NEEDEDmetFORMIN (GLUCOPHAGE) 500 mg tablet Take 2 tablets by mouth twice dailywith meals.CPAP On CPAP 9cmH2O. Please provide supplies. Mask per preference, heatedtubing, filters, SD card, heated humidity. Lifetime Supplies. Dx: G47.33.Fenofibrate (LOFIBRA) 160 mg tablet TAKE 1 TABLET DAILYOmeprazole 40 mg capsule Take 1 capsule by mouth once daily.multivitamin tablet Take 1 tablet by mouth once daily.cetirizine (ZYRTEC) 10 mg tablet Take 1 tablet by mouth once daily.simvastatin (ZOCOR) 20 mg tablet TAKE 1 TABLET BY MOUTH AT BEDTIMElevothyroxine (SYNTHROID) 50 mcg tablet Take one tablet by mouth inaddition to 200 mcg a daylisinopril (PRINIVIL) 5 mg tablet Take 1 tablet by mouth once daily.ciclopirox (LOPROX) 0.77 % cream Apply 1 application to affected areatwice daily.triamcinolone (KENALOG IN ORABASE) 0.1 % paste 1 application by DENTALroute three times daily.fluticasone (FLONASE) 50 mcg/actuation nasal spray Use 2 Sprays in eachnostril once daily. Rinse mouth after use.FLUoxetine (PROZAC) 20 mg capsule TAKE 1 CAPSULE BY MOUTH EVERY DAYCompression Stockings Knee High Compression Stockings 20-30 mm, DX:chronic peripheral venous insufficiency, edemaCOMPOUNDED PRESCRIPTION Disposable filter papers for CPAP machine, oldfilter papers are no good. Dx ROSEANN 327.23albuterol HFA (PROAIR HFA) 90 mcg/actuation inhaler Inhale 2 Puffs asinstructed every 6 hours as needed for Wheezing/Shortness of Breath.[place]-3 Fatty Acids-Vitamin E (FISH OIL) 1,000 mg cap Take 2 capsules bymouth once daily.No current facility-administered medications for this visit.Rx meds not listed in EPIC: noneOTCs: noneHerbals: noneGLYCEMIC CONTROL:? Glucometer present at visit: Yes? SMBG?s:Date Fasting AM 2 hr PP Before Lunch 2 hr PP Before Dinner 2 hr PP Bedtime12/20 1336/27 1406/25 108 1726/21 124 1146/19 129 1866/15 1506/12 140 1926/6 111 1596/4 946/3 104 204? Hypoglycemia: no Last 3 Encounter BP Readings: Date: BP: 06/20/2017 120/80 11/29/2016 117/76 11/13/2016 112/80 Wt: 109.3 kg (241 lb) BMI: 35.59 kg/(m2)LABSLab ResultsComponent Value ButrFKF6C 8.3 10/03/2017HBA1C 12.3 06/20/2017HBA1C 6.9 11/13/2016CMP:Glucose 128 10/03/2017BUN 17 10/03/2017Creatinine 1.01 10/03/2017Sodium 137 10/03/2017Potassium 3.8 10/03/2017Chloride 96 10/03/2017CO2 26 10/03/2017Protein, Total 8.0 10/03/2017Albumin 4.6 10/03/2017Calcium 9.2 10/03/2017Alkaline Phosphatase 54 10/03/2017Bilirubin, Total 0.3 10/03/2017AST 26 10/03/2017ALT 31 10/03/2017Estimated Creatinine Clearance: 112.5 mL/min (based on SCr of 1.01 mg/dL).Last Lipid PanelLab ResultsComponent Value DateCHOL 148 11/13/2016Lab ResultsComponent Value DateHDL 37 11/13/2016Lab ResultsComponent Value DateLDL 78 11/13/2016Lab ResultsComponent Value DateTG 166 11/13/2016Albumin/Creat Ratio (mg/g)Date Value06/20/2017 45 (H)PHARMACOTHERAPY ASSESSMENT/PLAN:1. Type 2 diabetes mellitus with microalbuminuria, without long-termcurrent use of insulin (HCC) - ICD9: 250.40, 791.0, ICD10: E11.29, R80.9(primary diagnosis)A1c goal <?7%, patient is not?at goal (8.3% on 10/03). Due for recheck.Patient compliant with and tolerating current regimen. SMBGs much improvedsince addition of glipizide. Will continue current regimen at this time.Patient averse to injections.?Discussed dietary modifications but dietlimited to what patient can afford/is convenient. Commended patient onswitching to water?instead of diet pop. He will work on incorporating somephysical activity such as walking. Renal fxn and LFTs WNL?and appropriatefor continued therapy? CONTINUE metformin 1,000mg BID and glipizide XL 5mg QAM? Instructed patient to continue checking FBGs and PPBGs daily? Reminded about A1c next week2. Essential hypertension, benign - ICD9: 401.1, ICD10: I10BP goal < 140/90, pt is at goal without therapy. Will continue to monitor.?3. Mixed hyperlipidemia - ICD9: 272.2, ICD10: E78.2Pt is on appropriate statin intensity (inidicated for moderate?intensityd/t DM?and ASCVD risk score 3%). Patient compliant with and toleratingcurrent regimen. Will continue. ?LFTs and renal fxn WNL?and appropriatefor continued therapy ? CONTINUE simvastatin 20mg once dailyHealth Maintenance issues addressed:DILATED RETINAL EXAM due on 1972LDL due on 11/13/2017Patient is scheduled to see PCP open access.Patient to return to clinic for PharmD f/u TBD based on a1c results.Patient verbalized understanding of instructions.Sandeep Couch, HarishD, BCPS CNOV Observed: 12/24/2017 Status: COMPLETED Source: [place] 2:00 PM [facility] REPOSITORY Office Visit (PHMEWO) [facility]QU[facility][id number]) 1970 [facility] Department12/24/17 2:00 PM IZA (PHARMACIST)SANDEEP During your visit today, we recorded the following information about you:SIMEON GUZMAN 12/24/2017 2:28 PM SignedTELEPHONIC APPOINTMENT?REASON FOR CONSULT: DM?GOALS: A1c <?7%CONSULTING PROVIDER: Dr. Mahmood??Date of Consult: 06/2017?Pamela Lindquist is a 47 year old male was last seen in [facility] by PCP, Dr.William Arcadio Mahmood MD on 06/20/17.INTERIM HISTORY:Reports feeling well overallWorks from home so prefers telephonic appointmentsCurrent DM Medications:Metformin 1,000mg BIDGlipizide XL 5mg once daily?Current HTN Medications:Lisinopril 5mg once daily?Preventative Medications:? On ARNAV/ARB: Yes? On Statin: Yes? On ASA: NoROS:? Patient denies CP, SOB, LORENZ, blurred vision, dizziness or lightheadedness? Patient denies symptoms of hypoglycemia (sweating, anxiety, palpitations,hunger, and tremor)? Patient denies symptoms of hyperglycemia (polyuria, polydipsia, polyphagia)? Patient denies potential medication adverse effectsDIET/EXERCISE/SOCIAL Hx:? Denies any changes since last timeMEDICATIONS:? Pill bottles are not?present.? Adherence: denies?missed doses.? [facility]acy: [facility]? Rx coverage: [employer]? Affordability: no issues? Diabetes supplies: [employer]? Organization System: noneACTIVE PROBLEM LISTEssential Hypertension, BenignMixed HyperlipidemiaObesity, UnspecifiedEsophageal RefluxFamily History of Other Cardiovascular Diseases(v17.49)Family History of Malignant Neoplasm of Gastrointestinal TractIron Deficiency Anemia, UnspecifiedAllergic Rhinitis, Cause UnspecifiedBenign Neoplasm of ColonHIATAL HERNIAHypothyroidism (Acquired)Roseann (Obstructive Sleep Apnea)Rls (Restless Legs Syndrome)Ptsd (Post-Traumatic Stress Disorder)Familial Adenomatous PolyposisVitamin D DeficiencyObsessive-Compulsive DisorderPAST MEDICAL HISTORYDiagnosis Date- Benign neoplasm of colon- Diaphragmatic hernia without mention of obstruction or gangrene- Esophageal reflux- Familial adenomatous polyposis 11/2013 APC mutation- Family history of malignant neoplasm of gastrointestinal tract- Obstructive sleep apnea on cpap- Pure hypercholesterolemia- Scarlet fever as a child- Uncontrolled type 2 diabetes mellitus without complication, without long-termcurrent use of insulin (HCC) 11/22/2015- Unspecified essential hypertension- Unspecified hypothyroidismALLERGIESNo Known AllergiesCurrent Outpatient Prescriptions:glipiZIDE XL (GLUCOTROL XL) 5 mg 24 hr tablet Take 1 tablet by mouth everymorning.glipiZIDE XL (GLUCOTROL XL) 5 mg 24 hr tablet Take 1 tablet by mouth everymorning.levothyroxine (SYNTHROID) 200 mcg tablet TAKE 1 TABLET BY MOUTH EVERY DAYergocalciferol, vitamin D2, (DRISDOL) 50,000 unit capsule TAKE 1 CAPSULE BYMOUTH EVERY WEEKFREESTYLE LITE STRIPS test strip Test blood sugar twice daily E11.9UNILET SUPER THIN LANCETS 30 gauge misc Test blood sugar twice daily E11.9gabapentin (NEURONTIN) 300 mg capsule TAKE 1 CAPSULE BY MOUTH AROUND 5PM ASNEEDED FOR RLS, MAY INCREASE TO UP TO 3 (THREE) CAPSULES NEEDEDmetFORMIN (GLUCOPHAGE) 500 mg tablet Take 2 tablets by mouth twice daily withmeals.CPAP On CPAP 9cmH2O. Please provide supplies. Mask per preference, heatedtubing, filters, SD card, heated humidity. Lifetime Supplies. Dx: G47.33.Fenofibrate (LOFIBRA) 160 mg tablet TAKE 1 TABLET DAILYOmeprazole 40 mg capsule Take 1 capsule by mouth once daily.multivitamin tablet Take 1 tablet by mouth once daily.cetirizine (ZYRTEC) 10 mg tablet Take 1 tablet by mouth once daily.simvastatin (ZOCOR) 20 mg tablet TAKE 1 TABLET BY MOUTH AT BEDTIMElevothyroxine (SYNTHROID) 50 mcg tablet Take one tablet by mouth in addition to200 mcg a daylisinopril (PRINIVIL) 5 mg tablet Take 1 tablet by mouth once daily.ciclopirox (LOPROX) 0.77 % cream Apply 1 application to affected area twicedaily.triamcinolone (KENALOG IN ORABASE) 0.1 % paste 1 application by DENTAL routethree times daily.fluticasone (FLONASE) 50 mcg/actuation nasal spray Use 2 Sprays in each nostrilonce daily. Rinse mouth after use.FLUoxetine (PROZAC) 20 mg capsule TAKE 1 CAPSULE BY MOUTH EVERY DAYCompression Stockings Knee High Compression Stockings 20-30 mm, DX: chronicperipheral venous insufficiency, edemaCOMPOUNDED PRESCRIPTION Disposable filter papers for CPAP machine, old filterpapers are no good. Dx ROSEANN 327.23albuterol HFA (PROAIR HFA) 90 mcg/actuation inhaler Inhale 2 Puffs asinstructed every 6 hours as needed for Wheezing/Shortness of Breath.[place]-3 Fatty Acids-Vitamin E (FISH OIL) 1,000 mg cap Take 2 capsules by mouthonce daily.No current facility-administered medications for this visit.Rx meds not listed in EPIC: noneOTCs: noneHerbals: noneGLYCEMIC CONTROL:? Glucometer present at visit: Yes? SMBG?s:Date Fasting AM 2 hr PP Before Lunch 2 hr PP Before Dinner 2 hr PP Bedtime12/20 1336/27 1406/25 108 1726/21 124 1146/19 129 1866/15 1506/12 140 1926/6 111 1596/4 946/3 104 204? Hypoglycemia: no Last 3 Encounter BP Readings: Date: BP: 06/20/2017 120/80 11/29/2016 117/76 11/13/2016 112/80 Wt: 109.3 kg (241 lb) BMI: 35.59 kg/(m2)LABSLab ResultsComponent Value WnksHDG1P 8.3 10/03/2017HBA1C 12.3 06/20/2017HBA1C 6.9 11/13/2016CMP:Glucose 128 10/03/2017BUN 17 10/03/2017Creatinine 1.01 10/03/2017Sodium 137 10/03/2017Potassium 3.8 10/03/2017Chloride 96 10/03/2017CO2 26 10/03/2017Protein, Total 8.0 10/03/2017Albumin 4.6 10/03/2017Calcium 9.2 10/03/2017Alkaline Phosphatase 54 10/03/2017Bilirubin, Total 0.3 10/03/2017AST 26 10/03/2017ALT 31 10/03/2017Estimated Creatinine Clearance: 112.5 mL/min (based on SCr of 1.01 mg/dL).Last Lipid PanelLab ResultsComponent Value DateCHOL 148 11/13/2016Lab ResultsComponent Value DateHDL 37 11/13/2016Lab ResultsComponent Value DateLDL 78 11/13/2016Lab ResultsComponent Value DateTG 166 11/13/2016Albumin/Creat Ratio (mg/g)Date Value06/20/2017 45 (H)PHARMACOTHERAPY ASSESSMENT/PLAN:1. Type 2 diabetes mellitus with microalbuminuria, without long-term currentuse of insulin ([facility]) - ICD9: 250.40, 791.0, ICD10: E11.29, R80.9 (primarydiagnosis)A1c goal <?7%, patient is not?at goal (8.3% on 10/03). Due for recheck. Patientcompliant with and tolerating current regimen. SMBGs much improved sinceaddition of glipizide. Will continue current regimen at this time. Patientaverse to injections.?Discussed dietary modifications but diet limited to whatpatient can afford/is convenient. Commended patient on switching towater?instead of diet pop. He will work on incorporating some physical activitysuch as walking. Renal fxn and LFTs WNL?and appropriate for continued therapy? CONTINUE metformin 1,000mg BID and glipizide XL 5mg QAM? Instructed patient to continue checking FBGs and PPBGs daily? Reminded about A1c next week2. Essential hypertension, benign - ICD9: 401.1, ICD10: I10BP goal < 140/90, pt is at goal without therapy. Will continue to monitor.?3. Mixed hyperlipidemia - ICD9: 272.2, ICD10: E78.2Pt is on appropriate statin intensity (inidicated for moderate?intensity d/tDM?and ASCVD risk score 3%). Patient compliant with and tolerating currentregimen. Will continue. ?LFTs and renal fxn WNL?and appropriate for continuedtherapy ? CONTINUE simvastatin 20mg once dailyHealth Maintenance issues addressed:DILATED RETINAL EXAM due on 1972LDL due on 11/13/2017Patient is scheduled to see PCP open access.Patient to return to clinic for PharmD f/u TBD based on a1c results.Patient verbalized understanding of instructions.Sandeep Couch, HarsihD, BCPSReferring Provider: SELF [[id number]]Allergies As of Date: 12/24/2017(No Known Allergies)Date Reviewed: 06/20/2017Reviewed by: Samantha Zamora LPN - Fully AssessedReason for Visit: Allied Health Visit [5] Cmt: DM follow-upPrimary Visit Diagnosis:Type 2 diabetes mellitus with microalbuminuria, without long-term current use of insulin (HCC) [E11.29, R80.9] Other Visit Diagnoses:Essential hypertension, benign [I10] Mixed hyperlipidemia [E78.2]Order(s):lisinopril (PRINIVIL) 5 mg tabletTake 1 tablet by mouth once daily.Disp: 30 tabletRfl: 5 BASIC METABOLIC PNL [SQBMP] Order #: [id number] FUTUREPrescriptions as of 12/24/2017 Sig: LISINOPRIL 5 MG TABLET Take 1 tablet by mouth once d* GLIPIZIDE ER 5 MG TABLET, EXT* Take 1 tablet by mouth every * GLIPIZIDE ER 5 MG TABLET, EXT* Take 1 tablet by mouth every * LEVOTHYROXINE 200 MCG TABLET TAKE 1 TABLET BY MOUTH EVERY * ERGOCALCIFEROL (VITAMIN D2) 5* TAKE 1 CAPSULE BY MOUTH EVERY* METFORMIN 500 MG TABLET Take 2 tablets by mouth twice* FENOFIBRATE 160 MG TABLET TAKE 1 TABLET DAILY MULTIVITAMIN TABLET Take 1 tablet by mouth once d* CETIRIZINE 10 MG TABLET Take 1 tablet by mouth once d* SIMVASTATIN 20 MG TABLET TAKE 1 TABLET BY MOUTH AT BED* LEVOTHYROXINE 50 MCG TABLET Take one tablet by mouth in a* FREESTYLE LITE STRIPS Test blood sugar twice daily * UNILET SUPER THIN LANCETS 30 * Test blood sugar twice daily * GABAPENTIN 300 MG CAPSULE TAKE 1 CAPSULE BY MOUTH AROUN* CPAP On CPAP 9cmH2O. Please provid* OMEPRAZOLE 40 MG CAPSULE,MARIAELENA* Take 1 capsule by mouth once * CICLOPIROX 0.77 % TOPICAL CRE* Apply 1 application to affect* TRIAMCINOLONE ACETONIDE 0.1 %* 1 application by DENTAL route* FLUTICASONE 50 MCG/ACTUATION * Use 2 Sprays in each nostril * FLUOXETINE 20 MG CAPSULE TAKE 1 CAPSULE BY MOUTH EVERY* COMPOUNDED PRESCRIPTION Knee High Compression Stockin* COMPOUNDED PRESCRIPTION Disposable filter papers for * ALBUTEROL SULFATE HFA 90 MCG/* Inhale 2 Puffs as instructed * OMEGA-3 FATTY ACIDS-VITAMIN E* Take 2 capsules by mouth once*Problem List As Of Date 12/24/2017 Noted Resolved Routine General Medical Examination at a [facility]*INVALID FOR*09/07/2013 Class: Chronic More... BENIGN HYPERTENSION [I10] INVALID FOR* More... MIXED HYPERLIPIDEMIA [E78.2] INVALID FOR* OBESITY NOS [E66.9] INVALID FOR* ESOPHAGEAL REFLUX [K21.9] INVALID FOR* FAM HX-CARDIOVAS DIS NEC [Z82.49] INVALID FOR* More... FAMILY HX GI MALIGNANCY [Z80.0] INVALID FOR* More... IRON DEFIC ANEMIA NOS [D50.9] INVALID FOR* More... ALLERGIC RHINITIS NOS [J30.9] INVALID FOR* More... Benign Neoplasm of Colon [D12.6] INVALID FOR* More... HIATAL HERNIA [K44.9] INVALID FOR* Hypothyroidism (acquired) [E03.9] INVALID FOR* ROSEANN (obstructive sleep apnea) [G47.33] INVALID FOR* More... RLS (restless legs syndrome) [G25.81] INVALID FOR* PTSD (post-traumatic stress disorder) [F43.10] INVALID FOR* Familial adenomatous polyposis [D12.6] INVALID FOR* Vitamin D deficiency [E55.9] INVALID FOR* Uncontrolled type 2 diabetes mellitus without c*INVALID FOR*11/13/2016 Obsessive-compulsive disorder [F42.9] INVALID FOR* FAP (familial adenomatous polyposis) [D12.6] INVALID FOR*12/08/2015 History of colonic polyps [Z86.010] INVALID FOR*12/08/2015 Gastroesophageal reflux disease [K21.9] INVALID FOR*12/08/2015 Controlled type 2 diabetes mellitus without com*INVALID FOR*06/24/2017Prescriptions ordered this encounter Disp Refills Start End LISINOPRIL 5 MG TABLET 30 t* 5 12/24/2017 Route: ORAL Sig: Take 1 tablet by mouth once daily.Medications Discontinued During This Encounter lisinopril (PRINIVIL) 5 mg tablet 30 t* 5 06/24/2017 12/24/2017 Route: ORAL Sig: Take 1 tablet by mouth once daily. Disc: Reason for discontinue is not on file. Status:Closed by IZA (PHARMACIST)SANDEEP on 12/24/17 PROGRESS Observed: 11/12/2017 Status: COMPLETED Source: [place] 2:00 PM [facility] REPOS[facility] HNO ID: [id number]: Sandeep Couch (Pharmacist)Service: (none)Author Type: PharmacistType: Progress NotesFiled: 11/12/2017 2:21 PMNote Text:Patient consents to pharmacy collaborative practice agreement.TELEPHONIC APPOINTMENT?REASON FOR CONSULT: DMGOALS: A1c < 7%CONSULTING PROVIDER: Dr. Zhou of Consult: 06/2017Pamela Lindquist is a 47 year old male was last seen in [facility] by PCP, Dr.William Arcadio Mahmood MD on 06/20/17.Patient is CALLED today for f/u pharmacotherapy management appointment forDM.At last PharmD visit on 10/02 patient was continued on current regimen.INTERIM HISTORY:Reports feeling well overallWorks from home so prefers telephonic appointmentsAfter eating, 1-2 hours later felt sweaty, hasn't felt that recentlyCurrent DM Medications:Metformin 1,000mg BIDGlipizide XL 5mg once daily?Current HTN Medications:Lisinopril 5mg once daily?Preventative Medications:? On ARNAV/ARB: Yes? On Statin: Yes? On ASA: NoROS:? Patient denies CP, SOB, LORENZ, blurred vision, dizziness or lightheadedness? Patient denies symptoms of hypoglycemia (sweating, anxiety,palpitations, hunger, and tremor)? Patient denies symptoms of hyperglycemia (polyuria, polydipsia,polyphagia)? Patient denies potential medication adverse effectsDIET/EXERCISE/SOCIAL Hx:? Eating more whole wheat instead of white bread? Sometimes eating chips, rarely fries, trying not to? Once in a while diet pop, mostly waterMEDICATIONS:? Pill bottles are not present.? Adherence: denies missed doses.? [facility]? Rx coverage: [employer]? Affordability: no issues? Diabetes supplies: [employer]? Organization System: noneACTIVE PROBLEM LISTEssential Hypertension, BenignMixed HyperlipidemiaObesity, UnspecifiedEsophageal RefluxFamily History of Other Cardiovascular Diseases(v17.49)Family History of Malignant Neoplasm of Gastrointestinal TractIron Deficiency Anemia, UnspecifiedAllergic Rhinitis, Cause UnspecifiedBenign Neoplasm of ColonHIATAL HERNIAHypothyroidism (Acquired)Roseann (Obstructive Sleep Apnea)Rls (Restless Legs Syndrome)Ptsd (Post-Traumatic Stress Disorder)Familial Adenomatous PolyposisVitamin D DeficiencyObsessive-Compulsive DisorderPAST MEDICAL HISTORYDiagnosis Date- Benign neoplasm of colon- Diaphragmatic hernia without mention of obstruction or gangrene- Esophageal reflux- Familial adenomatous polyposis 11/2013 APC mutation- Family history of malignant neoplasm of gastrointestinal tract- Obstructive sleep apnea on cpap- Pure hypercholesterolemia- Scarlet fever as a child- Uncontrolled type 2 diabetes mellitus without complication, withoutlong-term current use of insulin ([facility]) 11/22/2015- Unspecified essential hypertension- Unspecified hypothyroidismALLERGIESNo Known AllergiesCurrent Outpatient Prescriptions:gabapentin (NEURONTIN) 300 mg capsule TAKE 1 CAPSULE BY MOUTH AROUND 5PMAS NEEDED FOR RLS, MAY INCREASE TO UP TO 3 (THREE) CAPSULES NEEDEDmetFORMIN (GLUCOPHAGE) 500 mg tablet Take 2 tablets by mouth twice dailywith meals.CPAP On CPAP 9cmH2O. Please provide supplies. Mask per preference, heatedtubing, filters, SD card, heated humidity. Lifetime Supplies. Dx: G47.33.Fenofibrate (LOFIBRA) 160 mg tablet TAKE 1 TABLET DAILYglipiZIDE XL (GLUCOTROL XL) 5 mg 24 hr tablet Take 1 tablet by mouth everymorning.Omeprazole 40 mg capsule Take 1 capsule by mouth once daily.multivitamin tablet Take 1 tablet by mouth once daily.cetirizine (ZYRTEC) 10 mg tablet Take 1 tablet by mouth once daily.simvastatin (ZOCOR) 20 mg tablet TAKE 1 TABLET BY MOUTH AT BEDTIMElevothyroxine (SYNTHROID) 50 mcg tablet Take one tablet by mouth inaddition to 200 mcg a daylisinopril (PRINIVIL) 5 mg tablet Take 1 tablet by mouth once daily.ciclopirox (LOPROX) 0.77 % cream Apply 1 application to affected areatwice daily.triamcinolone (KENALOG IN ORABASE) 0.1 % paste 1 application by DENTALroute three times daily.fluticasone (FLONASE) 50 mcg/actuation nasal spray Use 2 Sprays in eachnostril once daily. Rinse mouth after use.ergocalciferol, vitamin D2, (DRISDOL) 50,000 unit capsule Take 1 capsuleby mouth once each week.levothyroxine (SYNTHROID) 200 mcg tablet Take 1 tablet by mouth oncedaily.FLUoxetine (PROZAC) 20 mg capsule TAKE 1 CAPSULE BY MOUTH EVERY DAYblood sugar diagnostic (FREESTYLE LITE STRIPS) test strip Test blood sugartwice daily E11.9lancets (UNILET SUPER THIN LANCETS) 30 gauge misc Test blood sugar twicedaily E11.9Compression Stockings Knee High Compression Stockings 20-30 mm, DX:chronic peripheral venous insufficiency, edemaCOMPOUNDED PRESCRIPTION Disposable filter papers for CPAP machine, oldfilter papers are no good. Dx ROSEANN 327.23albuterol HFA (PROAIR HFA) 90 mcg/actuation inhaler Inhale 2 Puffs asinstructed every 6 hours as needed for Wheezing/Shortness of Breath.[place]-3 Fatty Acids-Vitamin E (FISH OIL) 1,000 mg cap Take 2 capsules bymouth once daily.No current facility-administered medications for this visit.Rx meds not listed in EPIC: noneOTCs: noneHerbals: noneGLYCEMIC CONTROL:? Glucometer present at visit: Yes? SMBG?s:Date Fasting AM 2 hr PP Before Lunch 2 hr PP Before Dinner 2 hr PP Bedtime11/12 1045/20 114 234 (after potatoes)11/05 148 1085/12 1625/8 95 1735/6 122 2145/4 1115/2 108 1704/30 121 1444/26 122 170/23 150 190? Hypoglycemia: denies Last 3 Encounter BP Readings: Date: BP: 06/20/2017 120/80 11/29/2016 117/76 11/13/2016 112/80 Wt: 109.3 kg (241 lb) BMI: 35.59 kg/(m2)LABSLab ResultsComponent Value FmstHIR4W 8.3 10/03/2017HBA1C 12.3 06/20/2017HBA1C 6.9 11/13/2016CMP:Glucose 128 10/03/2017BUN 17 10/03/2017Creatinine 1.01 10/03/2017Sodium 137 10/03/2017Potassium 3.8 10/03/2017Chloride 96 10/03/2017CO2 26 10/03/2017Protein, Total 8.0 10/03/2017Albumin 4.6 10/03/2017Calcium 9.2 10/03/2017Alkaline Phosphatase 54 10/03/2017Bilirubin, Total 0.3 10/03/2017AST 26 10/03/2017ALT 31 10/03/2017Estimated Creatinine Clearance: 112.5 mL/min (based on SCr of 1.01 mg/dL).Last Lipid PanelLab ResultsComponent Value DateCHOL 148 11/13/2016Lab ResultsComponent Value DateHDL 37 11/13/2016Lab ResultsComponent Value DateLDL 78 11/13/2016Lab ResultsComponent Value DateTG 166 11/13/2016Albumin/Creat Ratio (mg/g)Date Value06/20/2017 45 (H)PHARMACOTHERAPY ASSESSMENT/PLAN:1. Type 2 diabetes mellitus with microalbuminuria, without long-termcurrent use of insulin (HCC) - ICD9: 250.40, 791.0, ICD10: E11.29, R80.9(primary diagnosis)A1c goal <?7%, patient is not?at goal but much improved (8.3% on 10/03).Patient compliant with and tolerating current regimen. SMBGs much improvedsince addition of glipizide. Will continue current regimen at this time.Patient averse to injections.?Discussed dietary modifications but dietlimited to what patient can afford/is convenient. Commended patient onswitching to water?instead of diet pop. He will work on incorporating somephysical activity such as walking. Discussed treatment of hypoglycemiashould it occur, with rule of 15. Renal fxn and LFTs WNL?and appropriatefor continued therapy? CONTINUE metformin 1,000mg BID and glipizide XL 5mg QAM? Instructed patient to continue checking FBGs and PPBGs daily? A1c in . Essential hypertension, benign - ICD9: 401.1, ICD10: I10BP goal < 140/90, pt is at goal without therapy. Will continue to monitor.3. Mixed hyperlipidemia - ICD9: 272.2, ICD10: E78.2Pt is on appropriate statin intensity (inidicated for moderate?intensityd/t DM?and ASCVD risk score 3%). Patient compliant with and toleratingcurrent regimen. Will continue. ?LFTs and renal fxn WNL?and appropriatefor continued therapy ? CONTINUE simvastatin 20mg once dailyHealth Maintenance issues addressed:DILATED RETINAL EXAM due on 1972Patient is scheduled to see PCP open access.Patient to return to clinic for PharmD f/u on 12/24.Patient verbalized understanding of instructions.Sandeep Couch, PharmD, BCPS CNOV Observed: 11/12/2017 Status: COMPLETED Source: [place] 2:00 PM [facility] REPOSITORY Office Visit (PHMEWO) PAMELA LINDQUIST ([id number]) 1970 MDate Time Provider Department11/12/17 2:00 PM IZA (PHARMACIST)SANDEEP During your visit today, we recorded the following information about you:SIMEON GUZMAN 11/12/2017 2:21 PM SignedPatient consents to pharmacy collaborative practice agreement.TELEPHONIC APPOINTMENT?REASON FOR CONSULT: DMGOALS: A1c < 7%CONSULTING PROVIDER: Dr. Zhou of Consult: 06/2017Pamela Lindquist is a 47 year old male was last seen in [facility] by PCP, Dr.William Arcadio Mahmood MD on 06/20/17.Patient is CALLED today for f/u pharmacotherapy management appointment for DM.At last PharmD visit on 10/02 patient was continued on current regimen.INTERIM HISTORY:Reports feeling well overallWorks from home so prefers telephonic appointmentsAfter eating, 1-2 hours later felt sweaty, hasn't felt that recentlyCurrent DM Medications:Metformin 1,000mg BIDGlipizide XL 5mg once daily?Current HTN Medications:Lisinopril 5mg once daily?Preventative Medications:? On ARNAV/ARB: Yes? On Statin: Yes? On ASA: NoROS:? Patient denies CP, SOB, LORENZ, blurred vision, dizziness or lightheadedness? Patient denies symptoms of hypoglycemia (sweating, anxiety, palpitations,hunger, and tremor)? Patient denies symptoms of hyperglycemia (polyuria, polydipsia, polyphagia)? Patient denies potential medication adverse effectsDIET/EXERCISE/SOCIAL Hx:? Eating more whole wheat instead of white bread? Sometimes eating chips, rarely fries, trying not to? Once in a while diet pop, mostly waterMEDICATIONS:? Pill bottles are not present.? Adherence: denies missed doses.? [facility]acy[facility]? Rx coverage: [employer]? Affordability: no issues? Diabetes supplies: [employer]? Organization System: noneACTIVE PROBLEM LISTEssential Hypertension, BenignMixed HyperlipidemiaObesity, UnspecifiedEsophageal RefluxFamily History of Other Cardiovascular Diseases(v17.49)Family History of Malignant Neoplasm of Gastrointestinal TractIron Deficiency Anemia, UnspecifiedAllergic Rhinitis, Cause UnspecifiedBenign Neoplasm of ColonHIATAL HERNIAHypothyroidism (Acquired)Roseann (Obstructive Sleep Apnea)Rls (Restless Legs Syndrome)Ptsd (Post-Traumatic Stress Disorder)Familial Adenomatous PolyposisVitamin D DeficiencyObsessive-Compulsive DisorderPAST MEDICAL HISTORYDiagnosis Date- Benign neoplasm of colon- Diaphragmatic hernia without mention of obstruction or gangrene- Esophageal reflux- Familial adenomatous polyposis 11/2013 APC mutation- Family history of malignant neoplasm of gastrointestinal tract- Obstructive sleep apnea on cpap- Pure hypercholesterolemia- Scarlet fever as a child- Uncontrolled type 2 diabetes mellitus without complication, without long-termcurrent use of insulin ([facility]) 11/22/2015- Unspecified essential hypertension- Unspecified hypothyroidismALLERGIESNo Known AllergiesCurrent Outpatient Prescriptions:gabapentin (NEURONTIN) 300 mg capsule TAKE 1 CAPSULE BY MOUTH AROUND 5PM ASNEEDED FOR RLS, MAY INCREASE TO UP TO 3 (THREE) CAPSULES NEEDEDmetFORMIN (GLUCOPHAGE) 500 mg tablet Take 2 tablets by mouth twice daily withmeals.CPAP On CPAP 9cmH2O. Please provide supplies. Mask per preference, heatedtubing, filters, SD card, heated humidity. Lifetime Supplies. Dx: G47.33.Fenofibrate (LOFIBRA) 160 mg tablet TAKE 1 TABLET DAILYglipiZIDE XL (GLUCOTROL XL) 5 mg 24 hr tablet Take 1 tablet by mouth everymorning.Omeprazole 40 mg capsule Take 1 capsule by mouth once daily.multivitamin tablet Take 1 tablet by mouth once daily.cetirizine (ZYRTEC) 10 mg tablet Take 1 tablet by mouth once daily.simvastatin (ZOCOR) 20 mg tablet TAKE 1 TABLET BY MOUTH AT BEDTIMElevothyroxine (SYNTHROID) 50 mcg tablet Take one tablet by mouth in addition to200 mcg a daylisinopril (PRINIVIL) 5 mg tablet Take 1 tablet by mouth once daily.ciclopirox (LOPROX) 0.77 % cream Apply 1 application to affected area twicedaily.triamcinolone (KENALOG IN ORABASE) 0.1 % paste 1 application by DENTAL routethree times daily.fluticasone (FLONASE) 50 mcg/actuation nasal spray Use 2 Sprays in each nostrilonce daily. Rinse mouth after use.ergocalciferol, vitamin D2, (DRISDOL) 50,000 unit capsule Take 1 capsule bymouth once each week.levothyroxine (SYNTHROID) 200 mcg tablet Take 1 tablet by mouth once daily.FLUoxetine (PROZAC) 20 mg capsule TAKE 1 CAPSULE BY MOUTH EVERY DAYblood sugar diagnostic (FREESTYLE LITE STRIPS) test strip Test blood sugartwice daily E11.9lancets (UNILET SUPER THIN LANCETS) 30 gauge misc Test blood sugar twice daily E11.9Compression Stockings Knee High Compression Stockings 20-30 mm, DX: chronicperipheral venous insufficiency, edemaCOMPOUNDED PRESCRIPTION Disposable filter papers for CPAP machine, old filterpapers are no good. Dx ROSEANN 327.23albuterol HFA (PROAIR HFA) 90 mcg/actuation inhaler Inhale 2 Puffs asinstructed every 6 hours as needed for Wheezing/Shortness of Breath.[place]-3 Fatty Acids-Vitamin E (FISH OIL) 1,000 mg cap Take 2 capsules by mouthonce daily.No current facility-administered medications for this visit.Rx meds not listed in EPIC: noneOTCs: noneHerbals: noneGLYCEMIC CONTROL:? Glucometer present at visit: Yes? SMBG?s:Date Fasting AM 2 hr PP Before Lunch 2 hr PP Before Dinner 2 hr PP Bedtime11/12 1045/20 114 234 (after potatoes)11/05 148 1085/12 1625/8 95 1735/6 122 2145/4 1115/2 108 1704/30 121 1444/26 122 1704/23 150 190? Hypoglycemia: denies Last 3 Encounter BP Readings: Date: BP: 06/20/2017 120/80 11/29/2016 117/76 11/13/2016 112/80 Wt: 109.3 kg (241 lb) BMI: 35.59 kg/(m2)LABSLab ResultsComponent Value QicjAIO1Q 8.3 10/03/2017HBA1C 12.3 06/20/2017HBA1C 6.9 11/13/2016CMP:Glucose 128 10/03/2017BUN 17 10/03/2017Creatinine 1.01 10/03/2017Sodium 137 10/03/2017Potassium 3.8 10/03/2017Chloride 96 10/03/2017CO2 26 10/03/2017Protein, Total 8.0 10/03/2017Albumin 4.6 10/03/2017Calcium 9.2 10/03/2017Alkaline Phosphatase 54 10/03/2017Bilirubin, Total 0.3 10/03/2017AST 26 10/03/2017ALT 31 10/03/2017Estimated Creatinine Clearance: 112.5 mL/min (based on SCr of 1.01 mg/dL).Last Lipid PanelLab ResultsComponent Value DateCHOL 148 11/13/2016Lab ResultsComponent Value DateHDL 37 11/13/2016Lab ResultsComponent Value DateLDL 78 11/13/2016Lab ResultsComponent Value DateTG 166 11/13/2016Albumin/Creat Ratio (mg/g)Date Value06/20/2017 45 (H)PHARMACOTHERAPY ASSESSMENT/PLAN:1. Type 2 diabetes mellitus with microalbuminuria, without long-term currentuse of insulin (HCC) - ICD9: 250.40, 791.0, ICD10: E11.29, R80.9 (primarydiagnosis)A1c goal <?7%, patient is not?at goal but much improved (8.3% on 10/03). Patientcompliant with and tolerating current regimen. SMBGs much improved sinceaddition of glipizide. Will continue current regimen at this time. Patientaverse to injections.?Discussed dietary modifications but diet limited to whatpatient can afford/is convenient. Commended patient on switching towater?instead of diet pop. He will work on incorporating some physical activitysuch as walking. Discussed treatment of hypoglycemia should it occur, with ruleof 15. Renal fxn and LFTs WNL?and appropriate for continued therapy? CONTINUE metformin 1,000mg BID and glipizide XL 5mg QAM? Instructed patient to continue checking FBGs and PPBGs daily? A1c in . Essential hypertension, benign - ICD9: 401.1, ICD10: I10BP goal < 140/90, pt is at goal without therapy. Will continue to monitor.3. Mixed hyperlipidemia - ICD9: 272.2, ICD10: E78.2Pt is on appropriate statin intensity (inidicated for moderate?intensity d/tDM?and ASCVD risk score 3%). Patient compliant with and tolerating currentregimen. Will continue. ?LFTs and renal fxn WNL?and appropriate for continuedtherapy ? CONTINUE simvastatin 20mg once dailyHealth Maintenance issues addressed:DILATED RETINAL EXAM due on 1972Patient is scheduled to see PCP open access.Patient to return to clinic for PharmD f/u on 12/24.Patient verbalized understanding of instructions.Sandeep Couch, HarishD, BCPSReferring Provider: SELF [[id number]]Allergies As of Date: 11/12/2017(No Known Allergies)Date Reviewed: 06/20/2017Reviewed by: Samantha Zamora LPN - Fully AssessedReason for Visit: Allied Health Visit [5] Cmt: DM follow-upPrimary Visit Diagnosis:Type 2 diabetes mellitus with microalbuminuria, without long-term current use of insulin (HCC) [E11.29, R80.9] Other Visit Diagnoses:Essential hypertension, benign [I10] Mixed hyperlipidemia [E78.2]Prescriptions as of 11/12/2017 Sig: GABAPENTIN 300 MG CAPSULE TAKE 1 CAPSULE BY MOUTH AROUN* METFORMIN 500 MG TABLET Take 2 tablets by mouth twice* FENOFIBRATE 160 MG TABLET TAKE 1 TABLET DAILY GLIPIZIDE ER 5 MG TABLET, EXT* Take 1 tablet by mouth every * OMEPRAZOLE 40 MG CAPSULE,MARIAELENA* Take 1 capsule by mouth once * MULTIVITAMIN TABLET Take 1 tablet by mouth once d* CETIRIZINE 10 MG TABLET Take 1 tablet by mouth once d* SIMVASTATIN 20 MG TABLET TAKE 1 TABLET BY MOUTH AT BED* LEVOTHYROXINE 50 MCG TABLET Take one tablet by mouth in a* LISINOPRIL 5 MG TABLET Take 1 tablet by mouth once d* ERGOCALCIFEROL (VITAMIN D2) 5* Take 1 capsule by mouth once * LEVOTHYROXINE 200 MCG TABLET Take 1 tablet by mouth once d* FLUOXETINE 20 MG CAPSULE TAKE 1 CAPSULE BY MOUTH EVERY* OMEGA-3 FATTY ACIDS-VITAMIN E* Take 2 capsules by mouth once* CPAP On CPAP 9cmH2O. Please provid* CICLOPIROX 0.77 % TOPICAL CRE* Apply 1 application to affect* TRIAMCINOLONE ACETONIDE 0.1 %* 1 application by DENTAL route* FLUTICASONE 50 MCG/ACTUATION * Use 2 Sprays in each nostril * BLOOD SUGAR DIAGNOSTIC STRIPS Test blood sugar twice daily * LANCETS 30 GAUGE Test blood sugar twice daily * COMPOUNDED PRESCRIPTION Knee High Compression Stockin* COMPOUNDED PRESCRIPTION Disposable filter papers for * ALBUTEROL SULFATE HFA 90 MCG/* Inhale 2 Puffs as instructed *Problem List As Of Date 11/12/2017 Noted Resolved Routine General Medical Examination at a [facility]*INVALID FOR*09/07/2013 Class: Chronic More... BENIGN HYPERTENSION [I10] INVALID FOR* More... MIXED HYPERLIPIDEMIA [E78.2] INVALID FOR* OBESITY NOS [E66.9] INVALID FOR* ESOPHAGEAL REFLUX [K21.9] INVALID FOR* FAM HX-CARDIOVAS DIS NEC [Z82.49] INVALID FOR* More... FAMILY HX GI MALIGNANCY [Z80.0] INVALID FOR* More... IRON DEFIC ANEMIA NOS [D50.9] INVALID FOR* More... ALLERGIC RHINITIS NOS [J30.9] INVALID FOR* More... Benign Neoplasm of Colon [D12.6] INVALID FOR* More... HIATAL HERNIA [K44.9] INVALID FOR* Hypothyroidism (acquired) [E03.9] INVALID FOR* ROSEANN (obstructive sleep apnea) [G47.33] INVALID FOR* More... RLS (restless legs syndrome) [G25.81] INVALID FOR* PTSD (post-traumatic stress disorder) [F43.10] INVALID FOR* Familial adenomatous polyposis [D12.6] INVALID FOR* Vitamin D deficiency [E55.9] INVALID FOR* Uncontrolled type 2 diabetes mellitus without c*INVALID FOR*11/13/2016 Obsessive-compulsive disorder [F42.9] INVALID FOR* FAP (familial adenomatous polyposis) [D12.6] INVALID FOR*12/08/2015 History of colonic polyps [Z86.010] INVALID FOR*12/08/2015 Gastroesophageal reflux disease [K21.9] INVALID FOR*12/08/2015 Controlled type 2 diabetes mellitus without com*INVALID FOR*06/24/2017Encounter Number: [id number] Status:Closed by IZA (PHARMACIST)SANDEEP on 11/12/17 DU Observed: 11/06/2017 Status: COMPLETED Source: [place] 12:00 AM [facility] REPOSITORY Telephone (NEUR) PAMELA LINDQUIST ([id number]) 1970 MDate Time Provider Department11/06/17 [place] [place] ([facility]) [facility] During your visit today, we recorded the following information about you:Jewell Salazar 11/06/2017 2:05 PM SignedFaxed order, office notes, demographics, and sleep study to:DME name: [facility] fax: [phone] ph: [phone] J Tolliver 11/06/2017 4:05 PM SignedJewell Salazar 11/06/2017 4:09 PM SignedSENT THESE ITEMS ASKED FOR BY [employer] DUE TO [facility] FAX MACHINE NOTPROPERLY WORKING. Jewell SalazarAllergies As of Date: 11/06/2017(No Known Allergies)Date Reviewed: 06/20/2017Reviewed by: Samantha Zamora LPN - Fully AssessedReason for Visit: PAP Rx Faxed [[id number]]Prescriptions as of 11/06/2017 Sig: GABAPENTIN 300 MG CAPSULE TAKE 1 CAPSULE BY MOUTH AROUN* METFORMIN 500 MG TABLET Take 2 tablets by mouth twice* CPAP On CPAP 9cmH2O. Please provid* FENOFIBRATE 160 MG TABLET TAKE 1 TABLET DAILY GLIPIZIDE ER 5 MG TABLET, EXT* Take 1 tablet by mouth every * OMEPRAZOLE 40 MG CAPSULE,MARIAELENA* Take 1 capsule by mouth once * MULTIVITAMIN TABLET Take 1 tablet by mouth once d* CETIRIZINE 10 MG TABLET Take 1 tablet by mouth once d* SIMVASTATIN 20 MG TABLET TAKE 1 TABLET BY MOUTH AT BED* LEVOTHYROXINE 50 MCG TABLET Take one tablet by mouth in a* LISINOPRIL 5 MG TABLET Take 1 tablet by mouth once d* CICLOPIROX 0.77 % TOPICAL CRE* Apply 1 application to affect* TRIAMCINOLONE ACETONIDE 0.1 %* 1 application by DENTAL route* FLUTICASONE 50 MCG/ACTUATION * Use 2 Sprays in each nostril * ERGOCALCIFEROL (VITAMIN D2) 5* Take 1 capsule by mouth once * LEVOTHYROXINE 200 MCG TABLET Take 1 tablet by mouth once d* FLUOXETINE 20 MG CAPSULE TAKE 1 CAPSULE BY MOUTH EVERY* BLOOD SUGAR DIAGNOSTIC STRIPS Test blood sugar twice daily * LANCETS 30 GAUGE Test blood sugar twice daily * COMPOUNDED PRESCRIPTION Knee High Compression Stockin* COMPOUNDED PRESCRIPTION Disposable filter papers for * ALBUTEROL SULFATE HFA 90 MCG/* Inhale 2 Puffs as instructed * OMEGA-3 FATTY ACIDS-VITAMIN E* Take 2 capsules by mouth once*Problem List As Of Date 11/06/2017 Noted Resolved Routine General Medical Examination at a [facility]*INVALID FOR*09/07/2013 Class: Chronic More... BENIGN HYPERTENSION [I10] INVALID FOR* More... MIXED HYPERLIPIDEMIA [E78.2] INVALID FOR* OBESITY NOS [E66.9] INVALID FOR* ESOPHAGEAL REFLUX [K21.9] INVALID FOR* FAM HX-CARDIOVAS DIS NEC [Z82.49] INVALID FOR* More... FAMILY HX GI MALIGNANCY [Z80.0] INVALID FOR* More... IRON DEFIC ANEMIA NOS [D50.9] INVALID FOR* More... ALLERGIC RHINITIS NOS [J30.9] INVALID FOR* More... Benign Neoplasm of Colon [D12.6] INVALID FOR* More... HIATAL HERNIA [K44.9] INVALID FOR* Hypothyroidism (acquired) [E03.9] INVALID FOR* ROSEANN (obstructive sleep apnea) [G47.33] INVALID FOR* More... RLS (restless legs syndrome) [G25.81] INVALID FOR* PTSD (post-traumatic stress disorder) [F43.10] INVALID FOR* Familial adenomatous polyposis [D12.6] INVALID FOR* Vitamin D deficiency [E55.9] INVALID FOR* Uncontrolled type 2 diabetes mellitus without c*INVALID FOR*11/13/2016 Obsessive-compulsive disorder [F42.9] INVALID FOR* FAP (familial adenomatous polyposis) [D12.6] INVALID FOR*12/08/2015 History of colonic polyps [Z86.010] INVALID FOR*12/08/2015 Gastroesophageal reflux disease [K21.9] INVALID FOR*12/08/2015 Controlled type 2 diabetes mellitus without com*INVALID FOR*06/24/2017Encounter Number: [id number] Status:Closed by JEWELL SALAZAR on 11/06/17 COMP METABOLIC PANEL Collected: 10/03/2017 Status: F Source: [place] 1:26 PM [facility] REPOS[facility] TYPE CODE TESTS RESULT OUT OF REFERENCE UNITS RANGE LAB TP 6.3-8.0 g/dL Protein, Total 8.0 LAB ALB 3.9-4.9 g/dL Albumin 4.6 LAB CA 8.5-10.2 mg/dL Calcium, Total 9.2 LAB TBIL 0.2-1.3 mg/dL Bilirubin, 0.3 Total LAB ALKP 36-108 U/L Alkaline 54 Phosphatase LAB AST 14-40 U/L AST 26 LAB GLU High 74-99 mg/dL Glucose 128 Result Comment: The [place] Diabetes Association (ADA) provides guidance for cutoff values for fasting glucose and r andom glucose. The ADA defines fasting as no caloric intake for at least 8 hours. Fasting plasma glucose results between 100 to 125 mg/dL indicate increased risk for diabetes (prediabetes). Fasting plasma glucose results greater than or equal to 126 mg/dL meet the criteria for diagnosis of diabetes. In the absence of unequivocal hyperglycemia, results should be confirmed by repeat testing. In a patient with classic symptoms of hyperglycemia or hyperglycemic crisis, random plasma glucose results greater than or equal to 200 mg/dL meet the criteria for diagnosis of diabetes. Reference: Standards of Medical Care in Diabetes 2016, [place] [employer] Association. Diabetes Care. 2016.39(Suppl 1). LAB BUN 9-24 mg/dL BUN 17 LAB CRET 0.73-1.22 mg/dL Creatinine 1.01 LAB NA 136-144 mmol/L Sodium 137 LAB K 3.7-5.1 mmol/L Potassium 3.8 LAB CL Low 97-105 mmol/L Chloride 96 LAB CO2 22-30 mmol/L CO2 26 LAB AGAP 9-18 mmol/L Anion Gap 15 LAB ALT 10-54 U/L ALT 31 LAB GFRAA eGFR- Amer. >60 LAB GFRNAA . eGFR-All Other Races >60 Result Comment: eGFR (Estimated GFR) Units of measure: mL/min/1.73 meters squared eGFR is derived from the reexpressed MDRD Study equation using the following parameters: serum creatinine, age, gender and race. The creatinine assay has been calibrated to be traceable to IDMS. An eGFR <60 mL/min/1.73m2 for >3 months is consistent with chronic kidney disease. Refer to KDOQI guidelines for clinical interpretation. In patients with unstable renal function, e.g. those with acute kidney injury, the eGFR may not accurately reflect actual GFR. Performed By: #### CMP, HBA1C #### [facility] [address] [id number] HEMOGLOBIN A1C Collected: 10/03/2017 Status: F Source: [place] 1:26 PM [facility] REPOSITORY TYPE CODE TESTS RESULT OUT OF REFERENCE UNITS RANGE LAB HGBA1C High 4.3-5.6 % Hemoglobin 8.3 A1c LAB HBA0 mg/dL Est. Average 192 Glucose Result Comment: eAG: (Estimated average glucose) is a calculated value from HgbA1c and is brewery representative of the average blood glucose level in the last 2-3 month period. Performed By: #### CMP, HBA1C #### [facility] [address] [place], [place] [address] PROGRESS Observed: 10/02/2017 Status: COMPLETED Source: [place] 1:00 PM [facility] REPOSITORY HNO ID: [id number]: Sandeep Couch (Pharmacist)Service: (none)Author Type: PharmacistType: Progress NotesFiled: 10/02/2017 1:19 PMNote Text:Patient consents to pharmacy collaborative practice agreement.TELEPHONIC APPOINTMENTREASON FOR CONSULT: DMGOALS: A1c < 7%CONSULTING PROVIDER: Dr. Zhou of Consult: 06/2017Pamela Lindquist is a 47 year old male was last seen in [facility] by PCP, Dr.William Arcadio Mahmood MD on 06/20/17.Patient is CALLED today for f/u pharmacotherapy management appointment forDM.At last PharmD visit on 08/26 glipizide was started.INTERIM HISTORY:Reports feeling well overallWorks from home so prefers telephonic appointmentsCurrent DM Medications:Metformin 1,000mg BIDGlipizide XL 5mg once dailyCurrent HTN Medications:Lisinopril 5mg once dailyPreventative Medications:? On ARNAV/ARB: Yes? On Statin: Yes? On ASA: NoROS:? Patient denies CP, SOB, LORENZ, blurred vision, dizziness or lightheadedness? Patient denies symptoms of hypoglycemia (sweating, anxiety,palpitations, hunger, and tremor)? Patient denies symptoms of hyperglycemia (polyuria, polydipsia,polyphagia)? Patient denies potential medication adverse effectsDIET/EXERCISE/SOCIAL Hx:? Breakfast: eggs with cheddar cheese, sometimes das or sausage, bread? Lunch: tuna fish sandwich? Dinner: fish or pizza rolls? Snacks: popcorn? Following Na restrictions: no? Beverages: just water, no diet pop, sometimes tea or coffee? Exercise: no? Tobacco: 1 cigar monthly? Alcohol: only on holidays? Illicits: deniesMEDICATIONS:? Pill bottles are not present.? Adherence: denies missed doses.? Pharmacy: [facility]? Rx coverage: [employer]? Affordability: no issues? Diabetes supplies: [employer]? Organization System: noneACTIVE PROBLEM LISTEssential Hypertension, BenignMixed HyperlipidemiaObesity, UnspecifiedEsophageal RefluxFamily History of Other Cardiovascular Diseases(v17.49)Family History of Malignant Neoplasm of Gastrointestinal TractIron Deficiency Anemia, UnspecifiedAllergic Rhinitis, Cause UnspecifiedBenign Neoplasm of ColonHIATAL HERNIAHypothyroidism (Acquired)Roseann (Obstructive Sleep Apnea)Rls (Restless Legs Syndrome)Ptsd (Post-Traumatic Stress Disorder)Familial Adenomatous PolyposisVitamin D DeficiencyObsessive-Compulsive DisorderPAST MEDICAL HISTORYDiagnosis Date- Benign neoplasm of colon- Diaphragmatic hernia without mention of obstruction or gangrene- Esophageal reflux- Familial adenomatous polyposis 11/2013 APC mutation- Family history of malignant neoplasm of gastrointestinal tract- Obstructive sleep apnea on cpap- Pure hypercholesterolemia- Scarlet fever as a child- Uncontrolled type 2 diabetes mellitus without complication, withoutlong-term current use of insulin ([facility]) 11/22/2015- Unspecified essential hypertension- Unspecified hypothyroidismALLERGIESNo Known AllergiesCurrent Outpatient Prescriptions:glipiZIDE XL (GLUCOTROL XL) 5 mg 24 hr tablet Take 1 tablet by mouth everymorning.Omeprazole 40 mg capsule Take 1 capsule by mouth once daily.multivitamin tablet Take 1 tablet by mouth once daily.gabapentin (NEURONTIN) 300 mg capsule TAKE 1 CAPSULE BY MOUTH AROUND 5PMAS NEEDED FOR RLS, MAY INCREASE TO UP TO 3 (THREE) CAPSULES NEEDEDcetirizine (ZYRTEC) 10 mg tablet Take 1 tablet by mouth once daily.simvastatin (ZOCOR) 20 mg tablet TAKE 1 TABLET BY MOUTH AT BEDTIMElevothyroxine (SYNTHROID) 50 mcg tablet Take one tablet by mouth inaddition to 200 mcg a daymetFORMIN (GLUCOPHAGE) 500 mg tablet Take 2 tablets by mouth twice dailywith meals.lisinopril (PRINIVIL) 5 mg tablet Take 1 tablet by mouth once daily.Fenofibrate (LOFIBRA) 160 mg tablet Take 1 tablet by mouth once daily.ciclopirox (LOPROX) 0.77 % cream Apply 1 application to affected areatwice daily.triamcinolone (KENALOG IN ORABASE) 0.1 % paste 1 application by DENTALroute three times daily.fluticasone (FLONASE) 50 mcg/actuation nasal spray Use 2 Sprays in eachnostril once daily. Rinse mouth after use.ergocalciferol, vitamin D2, (DRISDOL) 50,000 unit capsule Take 1 capsuleby mouth once each week.levothyroxine (SYNTHROID) 200 mcg tablet Take 1 tablet by mouth oncedaily.FLUoxetine (PROZAC) 20 mg capsule TAKE 1 CAPSULE BY MOUTH EVERY DAYblood sugar diagnostic (FREESTYLE LITE STRIPS) test strip Test blood sugartwice daily E11.9lancets (UNILET SUPER THIN LANCETS) 30 gauge misc Test blood sugar twicedaily E11.9Compression Stockings Knee High Compression Stockings 20-30 mm, DX:chronic peripheral venous insufficiency, edemaCOMPOUNDED PRESCRIPTION Disposable filter papers for CPAP machine, oldfilter papers are no good. Dx ROSEANN 327.23albuterol HFA (PROAIR HFA) 90 mcg/actuation inhaler Inhale 2 Puffs asinstructed every 6 hours as needed for Wheezing/Shortness of Breath.[place]-3 Fatty Acids-Vitamin E (FISH OIL) 1,000 mg cap Take 2 capsules bymouth once daily.CPAP CPAP 9 cmH2O, suitable mask, tubing, humidifier, filters. Lifetimesupplies. Dx: 327.23 - Obstructive sleep apneaNo current facility-administered medications for this visit.Rx meds not listed in EPIC: noneOTCs: noneHerbals: noneGLYCEMIC CONTROL:? Glucometer present at visit: Yes? SMBG?s:Date Fasting AM 2 hr PP Before Lunch 2 hr PP Before Dinner 2 hr PP Bedtime4/ 87 2504/1 1083/28 1173/26 103 1493/22 1183/20 120 1443/16 113 1533/14 156 2133/11 164 281? Hypoglycemia: denies Last 3 Encounter BP Readings: Date: BP: 06/20/2017 120/80 11/29/2016 117/76 11/13/2016 112/80 Wt: 109.3 kg (241 lb) BMI: 35.59 kg/(m2)LABSLab ResultsComponent Value ZsxlNGE1X 12.3 06/20/2017HBA1C 6.9 11/13/2016HBA1C 6.2 05/09/2016CMP:Glucose 307 06/20/2017BUN 14 06/20/2017Creatinine 0.88 06/20/2017Sodium 132 06/20/2017Potassium 4.4 06/20/2017Chloride 95 06/20/2017CO2 21 06/20/2017Protein, Total 7.8 11/13/2016Albumin 4.8 11/13/2016Calcium 9.0 06/20/2017Alkaline Phosphatase 46 11/13/2016Bilirubin, Total 0.3 11/13/2016AST 23 11/13/2016ALT 32 11/13/2016Estimated Creatinine Clearance: 129.1 mL/min (based on Cr of 0.88).Last Lipid PanelLab ResultsComponent Value DateCHOL 148 11/13/2016Lab ResultsComponent Value DateHDL 37 11/13/2016Lab ResultsComponent Value DateLDL 78 11/13/2016Lab ResultsComponent Value DateTG 166 11/13/2016Albumin/Creat Ratio (mg/g)Date Value06/20/2017 45 (H)PHARMACOTHERAPY ASSESSMENT/PLAN:1. Type 2 diabetes mellitus with microalbuminuria, without long-termcurrent use of insulin (HCC) - ICD9: 250.40, 791.0, ICD10: E11.29, R80.9(primary diagnosis)A1c goal <?7%, patient is not?at goal (12.3% on 06/20). Due for repeat.Patient compliant with and tolerating current regimen. SMBGs much improvedsince addition of glipizide. Will continue current regimen at this time.Patient averse to injections. Discussed dietary modifications but dietlimited to what patient can afford/is convenient. Commended patient onswitching to water instead of diet pop. He will work on incorporating somephysical activity such as walking. Renal fxn and LFTs WNL?and appropriatefor continued therapy? CONTINUE metformin 1,000mg BID and glipizide XL 5mg QAM? Instructed patient to continue checking FBGs and PPBGs daily? A1c tomorrow2. Essential hypertension, benign - ICD9: 401.1, ICD10: I10BP goal < 140/90, pt is at goal without therapy. Will continue to monitor.3. Mixed hyperlipidemia - ICD9: 272.2, ICD10: E78.2Pt is on appropriate statin intensity (inidicated for moderate intensityd/t DM and ASCVD risk score 3%). Patient compliant with and toleratingcurrent regimen. Will continue. LFTs and renal fxn WNL and appropriatefor continued therapy? CONTINUE simvastatin 20mg once dailyHealth Maintenance issues addressed:DILATED RETINAL EXAM due on 1972Patient is scheduled to see PCP will use open access.Patient to return to clinic for PharmD f/u on TBD based on A1c resulttomorrow.Patient verbalized understanding of instructions.Sandeep Couch, [place], BCPS CNOV Observed: 10/02/2017 Status: COMPLETED Source: [place] 1:00 PM [facility] REPOSITORY Office Visit (PHMEWO) PAMELA LINDQUIST ([id number]) 1970 MDate Time Provider Department10/02/17 1:00 PM IZA (PHARMACIST), SANDEEP BREWER During your visit today, we recorded the following information about you:SIMEON GUZMAN 10/02/2017 1:19 PM SignedPatient consents to pharmacy collaborative practice agreement.TELEPHONIC APPOINTMENTREASON FOR CONSULT: DMGOALS: A1c ANDlt; 7%CONSULTING PROVIDER: Dr. Zhou of Consult: 06/2017Pamela Lindquist is a 47 year old male was last seen in [facility] by PCP, Dr.William Arcadio Mahmood MD on 06/20/17.Patient is CALLED today for f/u pharmacotherapy management appointment for DM.At last PharmD visit on 08/26 glipizide was started.INTERIM HISTORY:Reports feeling well overallWorks from home so prefers telephonic appointmentsCurrent DM Medications:Metformin 1,000mg BIDGlipizide XL 5mg once dailyCurrent HTN Medications:Lisinopril 5mg once dailyPreventative Medications:? On ARNAV/ARB: Yes? On Statin: Yes? On ASA: NoROS:? Patient denies CP, SOB, LORENZ, blurred vision, dizziness or lightheadedness? Patient denies symptoms of hypoglycemia (sweating, anxiety, palpitations,hunger, and tremor)? Patient denies symptoms of hyperglycemia (polyuria, polydipsia, polyphagia)? Patient denies potential medication adverse effectsDIET/EXERCISE/SOCIAL Hx:? Breakfast: eggs with cheddar cheese, sometimes das or sausage, bread? Lunch: tuna fish sandwich? Dinner: fish or pizza rolls? Snacks: popcorn? Following Na restrictions: no? Beverages: just water, no diet pop, sometimes tea or coffee? Exercise: no? Tobacco: 1 cigar monthly? Alcohol: only on holidays? Illicits: deniesMEDICATIONS:? Pill bottles are not present.? Adherence: denies missed doses.? [facility]? Rx coverage: [employer]? Affordability: no issues? Diabetes supplies: [employer]? Organization System: noneACTIVE PROBLEM LISTEssential Hypertension, BenignMixed HyperlipidemiaObesity, UnspecifiedEsophageal RefluxFamily History of Other Cardiovascular Diseases(v17.49)Family History of Malignant Neoplasm of Gastrointestinal TractIron Deficiency Anemia, UnspecifiedAllergic Rhinitis, Cause UnspecifiedBenign Neoplasm of ColonHIATAL HERNIAHypothyroidism (Acquired)Roseann (Obstructive Sleep Apnea)Rls (Restless Legs Syndrome)Ptsd (Post-Traumatic Stress Disorder)Familial Adenomatous PolyposisVitamin D DeficiencyObsessive-Compulsive DisorderPAST MEDICAL HISTORYDiagnosis Date- Benign neoplasm of colon- Diaphragmatic hernia without mention of obstruction or gangrene- Esophageal reflux- Familial adenomatous polyposis 11/2013 APC mutation- Family history of malignant neoplasm of gastrointestinal tract- Obstructive sleep apnea on cpap- Pure hypercholesterolemia- Scarlet fever as a child- Uncontrolled type 2 diabetes mellitus without complication, without long-termcurrent use of insulin ([facility]) 11/22/2015- Unspecified essential hypertension- Unspecified hypothyroidismALLERGIESNo Known AllergiesCurrent Outpatient Prescriptions:glipiZIDE XL (GLUCOTROL XL) 5 mg 24 hr tablet Take 1 tablet by mouth everymorning.Omeprazole 40 mg capsule Take 1 capsule by mouth once daily.multivitamin tablet Take 1 tablet by mouth once daily.gabapentin (NEURONTIN) 300 mg capsule TAKE 1 CAPSULE BY MOUTH AROUND 5PM ASNEEDED FOR RLS, MAY INCREASE TO UP TO 3 (THREE) CAPSULES NEEDEDcetirizine (ZYRTEC) 10 mg tablet Take 1 tablet by mouth once daily.simvastatin (ZOCOR) 20 mg tablet TAKE 1 TABLET BY MOUTH AT BEDTIMElevothyroxine (SYNTHROID) 50 mcg tablet Take one tablet by mouth in addition to200 mcg a daymetFORMIN (GLUCOPHAGE) 500 mg tablet Take 2 tablets by mouth twice daily withmeals.lisinopril (PRINIVIL) 5 mg tablet Take 1 tablet by mouth once daily.Fenofibrate (LOFIBRA) 160 mg tablet Take 1 tablet by mouth once daily.ciclopirox (LOPROX) 0.77 % cream Apply 1 application to affected area twicedaily.triamcinolone (KENALOG IN ORABASE) 0.1 % paste 1 application by DENTAL routethree times daily.fluticasone (FLONASE) 50 mcg/actuation nasal spray Use 2 Sprays in each nostrilonce daily. Rinse mouth after use.ergocalciferol, vitamin D2, (DRISDOL) 50,000 unit capsule Take 1 capsule bymouth once each week.levothyroxine (SYNTHROID) 200 mcg tablet Take 1 tablet by mouth once daily.FLUoxetine (PROZAC) 20 mg capsule TAKE 1 CAPSULE BY MOUTH EVERY DAYblood sugar diagnostic (FREESTYLE LITE STRIPS) test strip Test blood sugartwice daily E11.9lancets (UNILET SUPER THIN LANCETS) 30 gauge misc Test blood sugar twice daily E11.9Compression Stockings Knee High Compression Stockings 20-30 mm, DX: chronicperipheral venous insufficiency, edemaCOMPOUNDED PRESCRIPTION Disposable filter papers for CPAP machine, old filterpapers are no good. Dx ROSEANN 327.23albuterol HFA (PROAIR HFA) 90 mcg/actuation inhaler Inhale 2 Puffs asinstructed every 6 hours as needed for Wheezing/Shortness of Breath.[place]-3 Fatty Acids-Vitamin E (FISH OIL) 1,000 mg cap Take 2 capsules by mouthonce daily.CPAP CPAP 9 cmH2O, suitable mask, tubing, humidifier, filters. [employer]. Dx: 327.23 - Obstructive sleep apneaNo current facility-administered medications for this visit.Rx meds not listed in EPIC: noneOTCs: noneHerbals: noneGLYCEMIC CONTROL:? Glucometer present at visit: Yes? SMBG?s:Date Fasting AM 2 hr PP Before Lunch 2 hr PP Before Dinner 2 hr PP Bedtime09/26 87 2504/1 1083/28 1173/26 103 1493/22 1183/20 120 1443/16 113 1533/14 156 2133/11 164 281? Hypoglycemia: denies Last 3 Encounter BP Readings: Date: BP: 06/20/2017 120/80 11/29/2016 117/76 11/13/2016 112/80 Wt: 109.3 kg (241 lb) BMI: 35.59 kg/(m2)LABSLab ResultsComponent Value TzdiLPX6M 12.3 06/20/2017HBA1C 6.9 11/13/2016HBA1C 6.2 05/09/2016CMP:Glucose 307 06/20/2017BUN 14 06/20/2017Creatinine 0.88 06/20/2017Sodium 132 06/20/2017Potassium 4.4 06/20/2017Chloride 95 06/20/2017CO2 21 06/20/2017Protein, Total 7.8 11/13/2016Albumin 4.8 11/13/2016Calcium 9.0 06/20/2017Alkaline Phosphatase 46 11/13/2016Bilirubin, Total 0.3 11/13/2016AST 23 11/13/2016ALT 32 11/13/2016Estimated Creatinine Clearance: 129.1 mL/min (based on Cr of 0.88).Last Lipid PanelLab ResultsComponent Value DateCHOL 148 11/13/2016Lab ResultsComponent Value DateHDL 37 11/13/2016Lab ResultsComponent Value DateLDL 78 11/13/2016Lab ResultsComponent Value DateTG 166 11/13/2016Albumin/Creat Ratio (mg/g)Date Value06/20/2017 45 (H)PHARMACOTHERAPY ASSESSMENT/PLAN:1. Type 2 diabetes mellitus with microalbuminuria, without long-term currentuse of insulin (HCC) - ICD9: 250.40, 791.0, ICD10: E11.29, R80.9 (primarydiagnosis)A1c goal ANDlt;?7%, patient is not?at goal (12.3% on 06/20). Due for repeat.Patient compliant with and tolerating current regimen. SMBGs much improvedsince addition of glipizide. Will continue current regimen at this time.Patient averse to injections. Discussed dietary modifications but diet limitedto what patient can afford/is convenient. Commended patient on switching towater instead of diet pop. He will work on incorporating some physical activitysuch as walking. Renal fxn and LFTs WNL?and appropriate for continued therapy? CONTINUE metformin 1,000mg BID and glipizide XL 5mg QAM? Instructed patient to continue checking FBGs and PPBGs daily? A1c tomorrow2. Essential hypertension, benign - ICD9: 401.1, ICD10: I10BP goal ANDlt; 140/90, pt is at goal without therapy. Will continue to monitor.3. Mixed hyperlipidemia - ICD9: 272.2, ICD10: E78.2Pt is on appropriate statin intensity (inidicated for moderate intensity d/t DMand ASCVD risk score 3%). Patient compliant with and tolerating currentregimen. Will continue. LFTs and renal fxn WNL and appropriate for continuedtherapy? CONTINUE simvastatin 20mg once dailyHealth Maintenance issues addressed:DILATED RETINAL EXAM due on 1972Patient is scheduled to see PCP will use open access.Patient to return to clinic for PharmD f/u on TBD based on A1c result tomorrow.Patient verbalized understanding of instructions.Sandeep Couch, PharmD, BCPSAllergies As of Date: 10/02/2017(No Known Allergies)Date Reviewed: 06/20/2017Reviewed by: Samantha Zamora LPN - Fully AssessedPrimary Visit Diagnosis:Type 2 diabetes mellitus with microalbuminuria, without long-term current use of insulin (HCC) [E11.29, R80.9] Other Visit Diagnoses:Essential hypertension, benign [I10] Mixed hyperlipidemia [E78.2]Order(s):HGB A1C [WYSCH7O] Order #: [id number] FUTURE COMP METABOLIC PANEL [SQCMP] Order #: [id number] FUTURE glipiZIDE XL (GLUCOTROL XL) 5 mg 24 hr tabletTake 1 tablet by mouth every morning.Disp: 30 tabletRfl: 1Prescriptions as of 10/02/2017 Sig: GLIPIZIDE ER 5 MG TABLET, EXT* Take 1 tablet by mouth every * SIMVASTATIN 20 MG TABLET TAKE 1 TABLET BY MOUTH AT BED* METFORMIN 500 MG TABLET Take 2 tablets by mouth twice* LISINOPRIL 5 MG TABLET Take 1 tablet by mouth once d* OMEPRAZOLE 40 MG CAPSULE,MARIAELENA* Take 1 capsule by mouth once * MULTIVITAMIN TABLET Take 1 tablet by mouth once d* GABAPENTIN 300 MG CAPSULE TAKE 1 CAPSULE BY MOUTH AROUN* CETIRIZINE 10 MG TABLET Take 1 tablet by mouth once d* LEVOTHYROXINE 50 MCG TABLET Take one tablet by mouth in a* FENOFIBRATE 160 MG TABLET Take 1 tablet by mouth once d* CICLOPIROX 0.77 % TOPICAL CRE* Apply 1 application to affect* TRIAMCINOLONE ACETONIDE 0.1 %* 1 application by DENTAL route* FLUTICASONE 50 MCG/ACTUATION * Use 2 Sprays in each nostril * ERGOCALCIFEROL (VITAMIN D2) 5* Take 1 capsule by mouth once * LEVOTHYROXINE 200 MCG TABLET Take 1 tablet by mouth once d* FLUOXETINE 20 MG CAPSULE TAKE 1 CAPSULE BY MOUTH EVERY* BLOOD SUGAR DIAGNOSTIC STRIPS Test blood sugar twice daily * LANCETS 30 GAUGE Test blood sugar twice daily * COMPOUNDED PRESCRIPTION Knee High Compression Stockin* COMPOUNDED PRESCRIPTION Disposable filter papers for * ALBUTEROL SULFATE HFA 90 MCG/* Inhale 2 Puffs as instructed * OMEGA-3 FATTY ACIDS-VITAMIN E* Take 2 capsules by mouth once* CPAP CPAP 9 cmH2O, suitable mask, *Problem List As Of Date 10/02/2017 Noted Resolved Routine General Medical Examination at a [facility]*INVALID FOR*09/07/2013 Class: Chronic More... BENIGN HYPERTENSION [I10] INVALID FOR* More... MIXED HYPERLIPIDEMIA [E78.2] INVALID FOR* OBESITY NOS [E66.9] INVALID FOR* ESOPHAGEAL REFLUX [K21.9] INVALID FOR* FAM HX-CARDIOVAS DIS NEC [Z82.49] INVALID FOR* More... FAMILY HX GI MALIGNANCY [Z80.0] INVALID FOR* More... IRON DEFIC ANEMIA NOS [D50.9] INVALID FOR* More... ALLERGIC RHINITIS NOS [J30.9] INVALID FOR* More... Benign Neoplasm of Colon [D12.6] INVALID FOR* More... HIATAL HERNIA [K44.9] INVALID FOR* Hypothyroidism (acquired) [E03.9] INVALID FOR* ROSEANN (obstructive sleep apnea) [G47.33] INVALID FOR* More... RLS (restless legs syndrome) [G25.81] INVALID FOR* PTSD (post-traumatic stress disorder) [F43.10] INVALID FOR* Familial adenomatous polyposis [D12.6] INVALID FOR* Vitamin D deficiency [E55.9] INVALID FOR* Uncontrolled type 2 diabetes mellitus without c*INVALID FOR*11/13/2016 Obsessive-compulsive disorder [F42.9] INVALID FOR* FAP (familial adenomatous polyposis) [D12.6] INVALID FOR*12/08/2015 History of colonic polyps [Z86.010] INVALID FOR*12/08/2015 Gastroesophageal reflux disease [K21.9] INVALID FOR*12/08/2015 Controlled type 2 diabetes mellitus without com*INVALID FOR*06/24/2017Prescriptions ordered this encounter Disp Refills Start End GLIPIZIDE ER 5 MG TABLET, EXTENDED R* 30 t* 1 10/02/2017 Route: ORAL Sig: Take 1 tablet by mouth every morning.Medications Discontinued During This Encounter glipiZIDE XL (GLUCOTROL XL) 5 mg 24 * 30 t* 1 08/26/2017 10/02/2017 Route: ORAL Sig: Take 1 tablet by mouth every morning. Disc: Reason for discontinue is not on file.Follow-up and Disposition History RecordedEncounter Number: [id number] Status:Closed by IZA (PHARMACIST)SANDEEP on 10/02/17 PROGRESS Observed: 08/26/2017 Status: COMPLETED Source: [place] 2:30 PM [facility] REPOSITORY HNO ID: [id number]: Sandeep Couch (Pharmacist)Service: (none)Author Type: PharmacistType: Progress NotesFiled: 08/26/2017 2:54 PMNote Text:Patient consents to pharmacy collaborative practice agreement.TELEPHONIC APPOINTMENTREASON FOR CONSULT: DMGOALS: A1c < 7%CONSULTING PROVIDER: Dr. Zhou of Consult: 06/2017Pamela Lindquist is a 47 year old male was last seen in [facility] by PCP, Dr.William Arcadio Mahmood MD on 06/20/17.Patient is CALLED today for f/u pharmacotherapy management appointment forDM.At last PharmD visit patient was continued on current regimen andinstructed to start checking SMBGs.INTERIM HISTORY:Reports feeling well overall, denies questions or concernsWorks from home so prefers telephonic appointmentsCurrent DM Medications:Metformin 1,000mg BIDCurrent HTN Medications:Lisinopril 5mg once dailyPreventative Medications:? On ARNAV/ARB: Yes? On Statin: Yes? On ASA: NoROS:? Patient denies CP, SOB, LORENZ, blurred vision, dizziness or lightheadedness? Patient denies symptoms of hypoglycemia (sweating, anxiety,palpitations, hunger, and tremor)? Patient denies symptoms of hyperglycemia (polyuria, polydipsia,polyphagia)? Patient denies potential medication adverse effectsDIET/EXERCISE/SOCIAL Hx:? Breakfast: eggs with cheddar cheese, sometimes das or sausage, bread? Lunch: tuna fish sandwich? Dinner: fish or pizza rolls? Snacks: popcorn? Following Na restrictions: no? Beverages: just water, no diet pop, sometimes tea or coffee? Exercise: no? Tobacco: 1 cigar monthly? Alcohol: only on holidays? Illicits: deniesMEDICATIONS:? Pill bottles are not present.? Adherence: denies missed doses.? [facility]? Rx coverage: [employer]? Affordability: no issues? Diabetes supplies: [employer]? Organization System: noneACTIVE PROBLEM LISTEssential Hypertension, BenignMixed HyperlipidemiaObesity, UnspecifiedEsophageal RefluxFamily History of Other Cardiovascular Diseases(v17.49)Family History of Malignant Neoplasm of Gastrointestinal TractIron Deficiency Anemia, UnspecifiedAllergic Rhinitis, Cause UnspecifiedBenign Neoplasm of ColonHIATAL HERNIAHypothyroidism (Acquired)Roseann (Obstructive Sleep Apnea)Rls (Restless Legs Syndrome)Ptsd (Post-Traumatic Stress Disorder)Familial Adenomatous PolyposisVitamin D DeficiencyObsessive-Compulsive DisorderPAST MEDICAL HISTORYDiagnosis Date- Benign neoplasm of colon- Diaphragmatic hernia without mention of obstruction or gangrene- Esophageal reflux- Familial adenomatous polyposis 11/2013 APC mutation- Family history of malignant neoplasm of gastrointestinal tract- Obstructive sleep apnea on cpap- Pure hypercholesterolemia- Scarlet fever as a child- Uncontrolled type 2 diabetes mellitus without complication, withoutlong-term current use of insulin (HCC) 11/22/2015- Unspecified essential hypertension- Unspecified hypothyroidismALLERGIESNo Known AllergiesCurrent Outpatient Prescriptions:Omeprazole 40 mg capsule Take 1 capsule by mouth once daily.multivitamin tablet Take 1 tablet by mouth once daily.gabapentin (NEURONTIN) 300 mg capsule TAKE 1 CAPSULE BY MOUTH AROUND 5PMAS NEEDED FOR RLS, MAY INCREASE TO UP TO 3 (THREE) CAPSULES NEEDEDcetirizine (ZYRTEC) 10 mg tablet Take 1 tablet by mouth once daily.simvastatin (ZOCOR) 20 mg tablet TAKE 1 TABLET BY MOUTH AT BEDTIMElevothyroxine (SYNTHROID) 50 mcg tablet Take one tablet by mouth inaddition to 200 mcg a daymetFORMIN (GLUCOPHAGE) 500 mg tablet Take 2 tablets by mouth twice dailywith meals.lisinopril (PRINIVIL) 5 mg tablet Take 1 tablet by mouth once daily.Fenofibrate (LOFIBRA) 160 mg tablet Take 1 tablet by mouth once daily.ciclopirox (LOPROX) 0.77 % cream Apply 1 application to affected areatwice daily.triamcinolone (KENALOG IN ORABASE) 0.1 % paste 1 application by DENTALroute three times daily.fluticasone (FLONASE) 50 mcg/actuation nasal spray Use 2 Sprays in eachnostril once daily. Rinse mouth after use.ergocalciferol, vitamin D2, (DRISDOL) 50,000 unit capsule Take 1 capsuleby mouth once each week.levothyroxine (SYNTHROID) 200 mcg tablet Take 1 tablet by mouth oncedaily.FLUoxetine (PROZAC) 20 mg capsule TAKE 1 CAPSULE BY MOUTH EVERY DAYblood sugar diagnostic (FREESTYLE LITE STRIPS) test strip Test blood sugartwice daily E11.9lancets (UNILET SUPER THIN LANCETS) 30 gauge misc Test blood sugar twicedaily E11.9Compression Stockings Knee High Compression Stockings 20-30 mm, DX:chronic peripheral venous insufficiency, edemaCOMPOUNDED PRESCRIPTION Disposable filter papers for CPAP machine, oldfilter papers are no good. Dx ROSEANN 327.23albuterol HFA (PROAIR HFA) 90 mcg/actuation inhaler Inhale 2 Puffs asinstructed every 6 hours as needed for Wheezing/Shortness of Breath.[place]-3 Fatty Acids-Vitamin E (FISH OIL) 1,000 mg cap Take 2 capsules bymouth once daily.CPAP CPAP 9 cmH2O, suitable mask, tubing, humidifier, filters. [employer]. Dx: 327.23 - Obstructive sleep apneaNo current facility-administered medications for this visit.Rx meds not listed in EPIC: noneOTCs: noneHerbals: noneGLYCEMIC CONTROL:? Glucometer present at visit: Yes? SMBG?s:Date Fasting AM 2 hr PP Before Lunch 2 hr PP Before Dinner 2 hr PP Bedtime3/ 199 2942/28 212 3122/26 243 1942/21 152 2442/18 229 362? Hypoglycemia: no Last 3 Encounter BP Readings: Date: BP: 06/20/2017 120/80 11/29/2016 117/76 11/13/2016 112/80 Wt: 109.3 kg (241 lb) BMI: 35.59 kg/(m2)LABSLab ResultsComponent Value TmbsRVB6L 12.3 06/20/2017HBA1C 6.9 11/13/2016HBA1C 6.2 05/09/2016CMP:Glucose 307 06/20/2017BUN 14 06/20/2017Creatinine 0.88 06/20/2017Sodium 132 06/20/2017Potassium 4.4 06/20/2017Chloride 95 06/20/2017CO2 21 06/20/2017Protein, Total 7.8 11/13/2016Albumin 4.8 11/13/2016Calcium 9.0 06/20/2017Alkaline Phosphatase 46 11/13/2016Bilirubin, Total 0.3 11/13/2016AST 23 11/13/2016ALT 32 11/13/2016Estimated Creatinine Clearance: 129.1 mL/min (based on Cr of 0.88).Last Lipid PanelLab ResultsComponent Value DateCHOL 148 11/13/2016Lab ResultsComponent Value DateHDL 37 11/13/2016Lab ResultsComponent Value DateLDL 78 11/13/2016Lab ResultsComponent Value DateTG 166 11/13/2016Albumin/Creat Ratio (mg/g)Date Value06/20/2017 45 (H)PHARMACOTHERAPY ASSESSMENT/PLAN:1. Type 2 diabetes mellitus with microalbuminuria, without long-termcurrent use of insulin (HCC) - ICD9: 250.40, 791.0, ICD10: E11.29, R80.9(primary diagnosis)A1c goal < 7%, patient is not at goal (12.3% on 06/20). Patient compliantwith and tolerating current regimen. SMBGs not at goal. Appropriate to addtherapy at this time. Patient averse to injections. Will initiatesulfonylurea at this time. Discussed dietary modifications but dietlimited to what patient can afford/is convenient. Commended patient onswitching to water instead of diet pop. He will work on incorporating somephysical activity such as walking. Renal fxn and LFTs WNL and appropriatefor continued therapy? START glipizide XL 5mg QAM (titrate to 20mg as tolerated)? CONTINUE metformin 500mg take 2 tablets BID? Instructed patient to continue checking FBGs and PPBGs? A1c end of AugustHealth Maintenance issues addressed:DILATED RETINAL EXAM due on 1972Patient is scheduled to see PCP open access.Patient to return to clinic for PharmD f/u on 10/02 telephonic.Patient verbalized understanding of instructions.Sandeep Couch PharmD, BCPS CNOV Observed: 08/26/2017 Status: COMPLETED Source: [place] 2:30 PM [facility] REPOSITORY Office Visit (PHMEWO) PAMELA LINDQUIST ([id number]) 1970 MDate Time Provider Department08/26/17 2:30 PM IZA (PHARMACIST), SANDEEP BREWER During your visit today, we recorded the following information about you:SIMEON GUZMAN 08/26/2017 2:54 PM SignedPatient consents to pharmacy collaborative practice agreement.TELEPHONIC APPOINTMENTREASON FOR CONSULT: DMGOALS: A1c ANDlt; 7%CONSULTING PROVIDER: Dr. Zhou of Consult: 06/2017Pamela Nicholson Ameena is a 47 year old male was last seen in [facility] by PCP, Dr.William Arcadio Mahmood MD on 06/20/17.Patient is CALLED today for f/u pharmacotherapy management appointment for DM.At last PharmD visit patient was continued on current regimen and instructed tostart checking SMBGs.INTERIM HISTORY:Reports feeling well overall, denies questions or concernsWorks from home so prefers telephonic appointmentsCurrent DM Medications:Metformin 1,000mg BIDCurrent HTN Medications:Lisinopril 5mg once dailyPreventative Medications:? On ARNAV/ARB: Yes? On Statin: Yes? On ASA: NoROS:? Patient denies CP, SOB, LORENZ, blurred vision, dizziness or lightheadedness? Patient denies symptoms of hypoglycemia (sweating, anxiety, palpitations,hunger, and tremor)? Patient denies symptoms of hyperglycemia (polyuria, polydipsia, polyphagia)? Patient denies potential medication adverse effectsDIET/EXERCISE/SOCIAL Hx:? Breakfast: eggs with cheddar cheese, sometimes das or sausage, bread? Lunch: tuna fish sandwich? Dinner: fish or pizza rolls? Snacks: popcorn? Following Na restrictions: no? Beverages: just water, no diet pop, sometimes tea or coffee? Exercise: no? Tobacco: 1 cigar monthly? Alcohol: only on holidays? Illicits: deniesMEDICATIONS:? Pill bottles are not present.? Adherence: denies missed doses.? [facility]acy[facility]? Rx coverage: [employer]? Affordability: no issues? Diabetes supplies: [employer]? Organization System: noneACTIVE PROBLEM LISTEssential Hypertension, BenignMixed HyperlipidemiaObesity, UnspecifiedEsophageal RefluxFamily History of Other Cardiovascular Diseases(v17.49)Family History of Malignant Neoplasm of Gastrointestinal TractIron Deficiency Anemia, UnspecifiedAllergic Rhinitis, Cause UnspecifiedBenign Neoplasm of ColonHIATAL HERNIAHypothyroidism (Acquired)Roseann (Obstructive Sleep Apnea)Rls (Restless Legs Syndrome)Ptsd (Post-Traumatic Stress Disorder)Familial Adenomatous PolyposisVitamin D DeficiencyObsessive-Compulsive DisorderPAST MEDICAL HISTORYDiagnosis Date- Benign neoplasm of colon- Diaphragmatic hernia without mention of obstruction or gangrene- Esophageal reflux- Familial adenomatous polyposis 11/2013 APC mutation- Family history of malignant neoplasm of gastrointestinal tract- Obstructive sleep apnea on cpap- Pure hypercholesterolemia- Scarlet fever as a child- Uncontrolled type 2 diabetes mellitus without complication, without long-termcurrent use of insulin (HCC) 11/22/2015- Unspecified essential hypertension- Unspecified hypothyroidismALLERGIESNo Known AllergiesCurrent Outpatient Prescriptions:Omeprazole 40 mg capsule Take 1 capsule by mouth once daily.multivitamin tablet Take 1 tablet by mouth once daily.gabapentin (NEURONTIN) 300 mg capsule TAKE 1 CAPSULE BY MOUTH AROUND 5PM ASNEEDED FOR RLS, MAY INCREASE TO UP TO 3 (THREE) CAPSULES NEEDEDcetirizine (ZYRTEC) 10 mg tablet Take 1 tablet by mouth once daily.simvastatin (ZOCOR) 20 mg tablet TAKE 1 TABLET BY MOUTH AT BEDTIMElevothyroxine (SYNTHROID) 50 mcg tablet Take one tablet by mouth in addition to200 mcg a daymetFORMIN (GLUCOPHAGE) 500 mg tablet Take 2 tablets by mouth twice daily withmeals.lisinopril (PRINIVIL) 5 mg tablet Take 1 tablet by mouth once daily.Fenofibrate (LOFIBRA) 160 mg tablet Take 1 tablet by mouth once daily.ciclopirox (LOPROX) 0.77 % cream Apply 1 application to affected area twicedaily.triamcinolone (KENALOG IN ORABASE) 0.1 % paste 1 application by DENTAL routethree times daily.fluticasone (FLONASE) 50 mcg/actuation nasal spray Use 2 Sprays in each nostrilonce daily. Rinse mouth after use.ergocalciferol, vitamin D2, (DRISDOL) 50,000 unit capsule Take 1 capsule bymouth once each week.levothyroxine (SYNTHROID) 200 mcg tablet Take 1 tablet by mouth once daily.FLUoxetine (PROZAC) 20 mg capsule TAKE 1 CAPSULE BY MOUTH EVERY DAYblood sugar diagnostic (FREESTYLE LITE STRIPS) test strip Test blood sugartwice daily E11.9lancets (UNILET SUPER THIN LANCETS) 30 gauge misc Test blood sugar twice daily E11.9Compression Stockings Knee High Compression Stockings 20-30 mm, DX: chronicperipheral venous insufficiency, edemaCOMPOUNDED PRESCRIPTION Disposable filter papers for CPAP machine, old filterpapers are no good. Dx ROSEANN 327.23albuterol HFA (PROAIR HFA) 90 mcg/actuation inhaler Inhale 2 Puffs asinstructed every 6 hours as needed for Wheezing/Shortness of Breath.[place]-3 Fatty Acids-Vitamin E (FISH OIL) 1,000 mg cap Take 2 capsules by mouthonce daily.CPAP CPAP 9 cmH2O, suitable mask, tubing, humidifier, filters. [employer]. Dx: 327.23 - Obstructive sleep apneaNo current facility-administered medications for this visit.Rx meds not listed in EPIC: noneOTCs: noneHerbals: noneGLYCEMIC CONTROL:? Glucometer present at visit: Yes? SMBG?s:Date Fasting AM 2 hr PP Before Lunch 2 hr PP Before Dinner 2 hr PP Bedtime08/24 199 2942/28 212 3122/26 243 1942/21 152 2442/18 229 362? Hypoglycemia: no Last 3 Encounter BP Readings: Date: BP: 06/20/2017 120/80 11/29/2016 117/76 11/13/2016 112/80 Wt: 109.3 kg (241 lb) BMI: 35.59 kg/(m2)LABSLab ResultsComponent Value EngwSZK1D 12.3 06/20/2017HBA1C 6.9 11/13/2016HBA1C 6.2 05/09/2016CMP:Glucose 307 06/20/2017BUN 14 06/20/2017Creatinine 0.88 06/20/2017Sodium 132 06/20/2017Potassium 4.4 06/20/2017Chloride 95 06/20/2017CO2 21 06/20/2017Protein, Total 7.8 11/13/2016Albumin 4.8 11/13/2016Calcium 9.0 06/20/2017Alkaline Phosphatase 46 11/13/2016Bilirubin, Total 0.3 11/13/2016AST 23 11/13/2016ALT 32 11/13/2016Estimated Creatinine Clearance: 129.1 mL/min (based on Cr of 0.88).Last Lipid PanelLab ResultsComponent Value DateCHOL 148 11/13/2016Lab ResultsComponent Value DateHDL 37 11/13/2016Lab ResultsComponent Value DateLDL 78 11/13/2016Lab ResultsComponent Value DateTG 166 11/13/2016Albumin/Creat Ratio (mg/g)Date Value06/20/2017 45 (H)PHARMACOTHERAPY ASSESSMENT/PLAN:1. Type 2 diabetes mellitus with microalbuminuria, without long-term currentuse of insulin (HCC) - ICD9: 250.40, 791.0, ICD10: E11.29, R80.9 (primarydiagnosis)A1c goal ANDlt; 7%, patient is not at goal (12.3% on 06/20). Patient compliantwith and tolerating current regimen. SMBGs not at goal. Appropriate to addtherapy at this time. Patient averse to injections. Will initiate sulfonylureaat this time. Discussed dietary modifications but diet limited to what patientcan afford/is convenient. Commended patient on switching to water instead ofdiet pop. He will work on incorporating some physical activity such as walking.Renal fxn and LFTs WNL and appropriate for continued therapy? START glipizide XL 5mg QAM (titrate to 20mg as tolerated)? CONTINUE metformin 500mg take 2 tablets BID? Instructed patient to continue checking FBGs and PPBGs? A1c end of AugustHealth Maintenance issues addressed:DILATED RETINAL EXAM due on 1972Patient is scheduled to see PCP open access.Patient to return to clinic for PharmD f/u on 10/02 telephonic.Patient verbalized understanding of instructions.Sandeep Couch, Rolo, LUIS ALBERTO COUCH, PHARMACIST 08/26/2017 2:52 PM SignedThings we talked about:1. Take new pill, glipizide 5mg every morning2. Continue metformin 2 pills morning and 2 pills evening3. Keep checking sugars before breakfast and 2 hours after supperWork on getting some exercise!Call Sandeep if any questions or concernsThank you,Sandeep Couch PharmDAllergies As of Date: 08/26/2017(No Known Allergies)Date Reviewed: 06/20/2017Reviewed by: Samantha Zamora LPN - Fully AssessedPrimary Visit Diagnosis:Type 2 diabetes mellitus with microalbuminuria, without long-term current use of insulin (HCC) [E11.29, R80.9] Other Visit Diagnoses:Essential hypertension, benign [I10] Mixed hyperlipidemia [E78.2]Order(s):glipiZIDE XL (GLUCOTROL XL) 5 mg 24 hr tabletTake 1 tablet by mouth every morning.Disp: 30 tabletRfl: 1Prescriptions as of 08/26/2017 Sig: GLIPIZIDE ER 5 MG TABLET, EXT* Take 1 tablet by mouth every * OMEPRAZOLE 40 MG CAPSULE,MARIAELENA* Take 1 capsule by mouth once * MULTIVITAMIN TABLET Take 1 tablet by mouth once d* GABAPENTIN 300 MG CAPSULE TAKE 1 CAPSULE BY MOUTH AROUN* CETIRIZINE 10 MG TABLET Take 1 tablet by mouth once d* SIMVASTATIN 20 MG TABLET TAKE 1 TABLET BY MOUTH AT BED* LEVOTHYROXINE 50 MCG TABLET Take one tablet by mouth in a* METFORMIN 500 MG TABLET Take 2 tablets by mouth twice* LISINOPRIL 5 MG TABLET Take 1 tablet by mouth once d* FENOFIBRATE 160 MG TABLET Take 1 tablet by mouth once d* CICLOPIROX 0.77 % TOPICAL CRE* Apply 1 application to affect* TRIAMCINOLONE ACETONIDE 0.1 %* 1 application by DENTAL route* FLUTICASONE 50 MCG/ACTUATION * Use 2 Sprays in each nostril * ERGOCALCIFEROL (VITAMIN D2) 5* Take 1 capsule by mouth once * LEVOTHYROXINE 200 MCG TABLET Take 1 tablet by mouth once d* FLUOXETINE 20 MG CAPSULE TAKE 1 CAPSULE BY MOUTH EVERY* BLOOD SUGAR DIAGNOSTIC STRIPS Test blood sugar twice daily * LANCETS 30 GAUGE Test blood sugar twice daily * COMPOUNDED PRESCRIPTION Knee High Compression Stockin* COMPOUNDED PRESCRIPTION Disposable filter papers for * ALBUTEROL SULFATE HFA 90 MCG/* Inhale 2 Puffs as instructed * OMEGA-3 FATTY ACIDS-VITAMIN E* Take 2 capsules by mouth once* CPAP CPAP 9 cmH2O, suitable mask, *Problem List As Of Date 08/26/2017 Noted Resolved Routine General Medical Examination at a [facility]*INVALID FOR*09/07/2013 Class: Chronic More... BENIGN HYPERTENSION [I10] INVALID FOR* More... MIXED HYPERLIPIDEMIA [E78.2] INVALID FOR* OBESITY NOS [E66.9] INVALID FOR* ESOPHAGEAL REFLUX [K21.9] INVALID FOR* FAM HX-CARDIOVAS DIS NEC [Z82.49] INVALID FOR* More... FAMILY HX GI MALIGNANCY [Z80.0] INVALID FOR* More... IRON DEFIC ANEMIA NOS [D50.9] INVALID FOR* More... ALLERGIC RHINITIS NOS [J30.9] INVALID FOR* More... Benign Neoplasm of Colon [D12.6] INVALID FOR* More... HIATAL HERNIA [K44.9] INVALID FOR* Hypothyroidism (acquired) [E03.9] INVALID FOR* ROSEANN (obstructive sleep apnea) [G47.33] INVALID FOR* More... RLS (restless legs syndrome) [G25.81] INVALID FOR* PTSD (post-traumatic stress disorder) [F43.10] INVALID FOR* Familial adenomatous polyposis [D12.6] INVALID FOR* Vitamin D deficiency [E55.9] INVALID FOR* Uncontrolled type 2 diabetes mellitus without c*INVALID FOR*11/13/2016 Obsessive-compulsive disorder [F42.9] INVALID FOR* FAP (familial adenomatous polyposis) [D12.6] INVALID FOR*12/08/2015 History of colonic polyps [Z86.010] INVALID FOR*12/08/2015 Gastroesophageal reflux disease [K21.9] INVALID FOR*12/08/2015 Controlled type 2 diabetes mellitus without com*INVALID FOR*06/24/2017 Other instructions from your clinician: Things we talked about: 1. Take new pill, glipizide 5mg every morning 2. Continue metformin 2 pills morning and 2 pills evening 3. Keep checking sugars before breakfast and 2 hours after supper Work on getting some exercise! Call Sandeep if any questions or concerns Thank you, Sandeep Couch, PharmDPrescriptions ordered this encounter Disp Refills Start End GLIPIZIDE ER 5 MG TABLET, EXTENDED R* 30 t* 1 08/26/2017 Route: ORAL Sig: Take 1 tablet by mouth every morning.Follow-up and Disposition History RecordedEncounter Number: [id number] Status:Closed by IZA (PHARMACIST)SANDEEP on 08/26/17 TSH Collected: 08/23/2017 Status: F Source: [place] 11:12 AM [facility] REPOSITORY TYPE CODE TESTS RESULT OUT OF RANGE REFERENCE UNITS LAB TSH 0.400-5.500 uU/mL TSH 0.921 Performed By: #### TSH #### [facility] [address] [address] PROGRESS Observed: 08/01/2017 Status: COMPLETED Source: MANTUA 4:04 PM [facility] REPOSITORY HNO ID: [id number]: Angeal Rivera LPNService: (none)Author Type: (none)Type: Progress NotesFiled: 08/01/2017 4:04 PMNote Text:Patient returned call and went over notes below to return in one month forweight check again with understanding. PROGRESS Observed: 07/29/2017 Status: COMPLETED Source: MANTUA 3:26 PM [facility] REPOSITORY HNO ID: [id number]: Stephie Sotoice: (none)Author Type: (none)Type: Progress NotesFiled: 07/29/2017 6:34 PMNote Text:Left message for patient to return call.Stephie Schultz PROGRESS Observed: 07/29/2017 Status: COMPLETED Source: MANTUA 2:00 PM [facility] REPOSITORY HNO ID: [id number]: Sandeep Couch (Pharmacist)Service: (none)Author Type: PharmacistType: Progress NotesFiled: 07/29/2017 4:28 PMNote Text:Patient consents to pharmacy collaborative practice agreement.REASON FOR CONSULT: DMGOALS: A1c < 7%CONSULTING PROVIDER: Dr. Zhou of Consult: 06/2017Pamela Lindquist is a 47 year old male was last seen in [facility] by PCP, Dr.William Arcadio Mahmood MD on 06/20/17.Patient is presenting today for initial pharmacotherapy managementappointment for DM.At last PCP metformin was increased.INTERIM HISTORY:Reports feeling well overall, denies any questions or concerns at thistimeIs unsure why his A1c went from < 7% to 12% over a few months timeThinks it is because he does not exerciseCurrent DM Medications:Metformin 500mg take 2 tablets BIDCurrent HTN Medications:Lisinopril 5mg once dailyPreventative Medications:? On ARNAV/ARB: Yes? On Statin: Yes? On ASA: NoROS:? Patient denies CP, SOB, LORENZ, blurred vision, dizziness or lightheadedness? Patient denies symptoms of hypoglycemia (sweating, anxiety,palpitations, hunger, and tremor)? Patient denies symptoms of hyperglycemia (polyuria, polydipsia,polyphagia)? Patient denies potential medication adverse effectsDIET/EXERCISE/SOCIAL Hx:? Breakfast: salsa and egg and potato? Lunch: two tuna fish sandwishes? Dinner: corn dogs or chili or burger jose r? Snacks: popcorn? Following Na restrictions: no? Beverages: diet coke or coffee? Exercise: no? Tobacco: 1 cigar monthly? Alcohol: holidays? Illicits: deniesMEDICATIONS:? Pill bottles are not present.? Adherence: denies missed doses.? Pharmacy: [facility]? Rx coverage: [employer]? Affordability: no issues? Diabetes supplies: [employer]? Organization System: noneACTIVE PROBLEM LISTEssential Hypertension, BenignMixed HyperlipidemiaObesity, UnspecifiedEsophageal RefluxFamily History of Other Cardiovascular Diseases(v17.49)Family History of Malignant Neoplasm of Gastrointestinal TractIron Deficiency Anemia, UnspecifiedAllergic Rhinitis, Cause UnspecifiedBenign Neoplasm of ColonHIATAL HERNIAHypothyroidism (Acquired)Roseann (Obstructive Sleep Apnea)Rls (Restless Legs Syndrome)Ptsd (Post-Traumatic Stress Disorder)Familial Adenomatous PolyposisVitamin D DeficiencyObsessive-Compulsive DisorderPAST MEDICAL HISTORYDiagnosis Date- Benign neoplasm of colon- Diaphragmatic hernia without mention of obstruction or gangrene- Esophageal reflux- Familial adenomatous polyposis 11/2013 APC mutation- Family history of malignant neoplasm of gastrointestinal tract- Obstructive sleep apnea on cpap- Pure hypercholesterolemia- Scarlet fever as a child- Uncontrolled type 2 diabetes mellitus without complication, withoutlong-term current use of insulin ([facility]) 11/22/2015- Unspecified essential hypertension- Unspecified hypothyroidismALLERGIESNo Known AllergiesCurrent Outpatient Prescriptions:gabapentin (NEURONTIN) 300 mg capsule TAKE 1 CAPSULE BY MOUTH AROUND 5PMAS NEEDED FOR RLS, MAY INCREASE TO UP TO 3 (THREE) CAPSULES NEEDEDcetirizine (ZYRTEC) 10 mg tablet Take 1 tablet by mouth once daily.simvastatin (ZOCOR) 20 mg tablet TAKE 1 TABLET BY MOUTH AT BEDTIMElevothyroxine (SYNTHROID) 50 mcg tablet Take one tablet by mouth inaddition to 200 mcg a daymetFORMIN (GLUCOPHAGE) 500 mg tablet Take 2 tablets by mouth twice dailywith meals.lisinopril (PRINIVIL) 5 mg tablet Take 1 tablet by mouth once daily.Fenofibrate (LOFIBRA) 160 mg tablet Take 1 tablet by mouth once daily.ciclopirox (LOPROX) 0.77 % cream Apply 1 application to affected areatwice daily.triamcinolone (KENALOG IN ORABASE) 0.1 % paste 1 application by DENTALroute three times daily.fluticasone (FLONASE) 50 mcg/actuation nasal spray Use 2 Sprays in eachnostril once daily. Rinse mouth after use.ergocalciferol, vitamin D2, (DRISDOL) 50,000 unit capsule Take 1 capsuleby mouth once each week.levothyroxine (SYNTHROID) 200 mcg tablet Take 1 tablet by mouth oncedaily.simvastatin (ZOCOR) 20 mg tablet TAKE 1 TABLET BY MOUTH AT BEDTIMEFLUoxetine (PROZAC) 20 mg capsule TAKE 1 CAPSULE BY MOUTH EVERY DAYblood sugar diagnostic (FREESTYLE LITE STRIPS) test strip Test blood sugartwice daily E11.9lancets (UNILET SUPER THIN LANCETS) 30 gauge misc Test blood sugar twicedaily E11.9triamcinolone acetonide (KENALOG) 0.1 % cream Apply 1 application toaffected area twice daily.Omeprazole (PRILOSEC) 40 mg capsule Take 1 capsule by mouth once daily.Compression Stockings Knee High Compression Stockings 20-30 mm, DX:chronic peripheral venous insufficiency, edemaCOMPOUNDED PRESCRIPTION Disposable filter papers for CPAP machine, oldfilter papers are no good. Dx ROSEANN 327.23albuterol HFA (PROAIR HFA) 90 mcg/actuation inhaler Inhale 2 Puffs asinstructed every 6 hours as needed for Wheezing/Shortness of Breath.[place]-3 Fatty Acids-Vitamin E (FISH OIL) 1,000 mg cap Take 2 capsules bymouth once daily.CPAP CPAP 9 cmH2O, suitable mask, tubing, humidifier, filters. Lifetimesupplies. Dx: 327.23 - Obstructive sleep apneaNo current facility-administered medications for this visit.Rx meds not listed in EPIC: noneOTCs: MVI, probiotics, ironHerbals: noneGLYCEMIC CONTROL:? Glucometer present at visit: No? SMBG?s: not currently checking Last 3 Encounter BP Readings: Date: BP: 06/20/2017 120/80 11/29/2016 117/76 11/13/2016 112/80 Wt: 109.5 kg (241 lb 6.4 oz) BMI: 35.65 kg/(m2)LABSLab ResultsComponent Value ToguCXX3Y 12.3 06/20/2017HBA1C 6.9 11/13/2016HBA1C 6.2 05/09/2016CMP:Glucose 307 06/20/2017BUN 14 06/20/2017Creatinine 0.88 06/20/2017Sodium 132 06/20/2017Potassium 4.4 06/20/2017Chloride 95 06/20/2017CO2 21 06/20/2017Protein, Total 7.8 11/13/2016Albumin 4.8 11/13/2016Calcium 9.0 06/20/2017Alkaline Phosphatase 46 11/13/2016Bilirubin, Total 0.3 11/13/2016AST 23 11/13/2016ALT 32 11/13/2016Estimated Creatinine Clearance: 128.9 mL/min (based on Cr of 0.88).Last Lipid PanelLab ResultsComponent Value DateCHOL 148 11/13/2016Lab ResultsComponent Value DateHDL 37 11/13/2016Lab ResultsComponent Value DateLDL 78 11/13/2016Lab ResultsComponent Value DateTG 166 11/13/2016Albumin/Creat Ratio (mg/g)Date Value06/20/2017 45 (H)PHARMACOTHERAPY ASSESSMENT/PLAN:1. Type 2 diabetes mellitus with microalbuminuria, without long-termcurrent use of insulin (HCC) - ICD9: 250.40, 791.0, ICD10: E11.29, R80.9(primary diagnosis)A1c goal < 7%, patient is not at goal (12.3% on 06/20). Patient compliantwith and tolerating current regimen. Will have patient start checking FBGsand PPBGs few times per week. If no improvements on metformin monotherapy,will likely add another oral agent or GLP-1 agonist for weight lossbenefit. Discussed dietary modifications but diet limited to what patientcan afford/is convenient. Also discussed water instead of diet pop. Graham work on incorporating some physical activity such as walking. Renalfxn and LFTs WNL and appropriate for continued therapy? CONTINUE metformin 500mg take 2 tablets BID? Instructed patient to start checking FBGs and PPBGs a few day sper week2. Essential hypertension, benign - ICD9: 401.1, ICD10: I10BP goal < 130/80, pt is at goal without therapy. Will continue to monitor.3. Mixed hyperlipidemia - ICD9: 272.2, ICD10: E78.2Pt is on appropriate statin intensity (inidicated for moderate intensityd/t DM and ASCVD risk score 3%). Patient compliant with and toleratingcurrent regimen. Will continue. LFTs and renal fxn WNL and appropriatefor continued therapy? CONTINUE simvastatin 20mg once dailyHealth Maintenance issues addressed:DILATED RETINAL EXAM due on 1972Patient is scheduled to see PCP will use open access.Patient to return to clinic for PharmD f/u on 08/26 telephonic.Patient verbalized understanding of instructions.Sandeep Couch, PharmD, BCPS PROGRESS Observed: 07/29/2017 Status: COMPLETED Source: [place] 1:50 PM [facility] REPOSITORY HNO ID: [id number]: Leobardo Urias: (none)Author Type: PhysicianType: Progress NotesFiled: 07/29/2017 6:34 PMNote Text:Weight loss has decreased. Recheck in one more month PROGRESS Observed: 07/29/2017 Status: COMPLETED Source: [place] 1:11 PM [facility] REPOSITORY HNO ID: [id number]: Mary Dixon LPNService: (none)Author Type: (none)Type: Progress NotesFiled: 07/29/2017 6:34 PMNote Text:Patent stops in office for weight check. Weight today 240lb. OBSOLETE Observed: 07/21/2017 Status: COMPLETED Source: [place] 12:00 AM [facility] REPOSITORY Refill (KARL) PAMELA LINDQUIST ([id number]) 1970 MDate Time Provider Department07/21/17 LEOBARDO MAHMOOD During your visit today, we recorded the following information about you:Pamela Joshi LPN 07/22/2017 12:21 PM SignedCall from pharmacy requesting refill.Pending Prescriptions Disp Refills GABAPENTIN 300 MG CAPSULE 90 capsule Sig: TAKE 1 CAPSULE BY MOUTH AROUND 5PM NEEDED FOR RLS, MAY INCREASE TOUP TO 3 (THREE) CAPSULES NEEDED ANDREAS: No CETIRIZINE 10 MG TABLET 90 tablet 3 Sig: Take 1 tablet by mouth once daily. ANDREAS: NoPatient last seen 06/20/17Pamela Joshi LPNAllergiasha As of Date: 07/21/2017(No Known Allergies)Date Reviewed: 06/20/2017Reviewed by: Samantha Zamora LPN - Fully AssessedReason for Visit: Refill Request [94]Order(s):gabapentin (NEURONTIN) 300 mg capsuleTAKE 1 CAPSULE BY MOUTH AROUND 5PM NEEDED FOR RLS, MAY INCREASE TO UP TO 3 (THREE) CAPSULES NEEDEDDisp: 90 capsuleRfl: 2 cetirizine (ZYRTEC) 10 mg tabletTake 1 tablet by mouth once daily.Disp: 90 tabletRfl: 3Prescriptions as of 07/21/2017 Sig: GABAPENTIN 300 MG CAPSULE TAKE 1 CAPSULE BY MOUTH AROUN* CETIRIZINE 10 MG TABLET Take 1 tablet by mouth once d* SIMVASTATIN 20 MG TABLET TAKE 1 TABLET BY MOUTH AT BED* LEVOTHYROXINE 50 MCG TABLET Take one tablet by mouth in a* METFORMIN 500 MG TABLET Take 2 tablets by mouth twice* LISINOPRIL 5 MG TABLET Take 1 tablet by mouth once d* FENOFIBRATE 160 MG TABLET Take 1 tablet by mouth once d* CICLOPIROX 0.77 % TOPICAL CRE* Apply 1 application to affect* TRIAMCINOLONE ACETONIDE 0.1 %* 1 application by DENTAL route* FLUTICASONE 50 MCG/ACTUATION * Use 2 Sprays in each nostril * ERGOCALCIFEROL (VITAMIN D2) 5* Take 1 capsule by mouth once * LEVOTHYROXINE 200 MCG TABLET Take 1 tablet by mouth once d* SIMVASTATIN 20 MG TABLET TAKE 1 TABLET BY MOUTH AT BED* FLUOXETINE 20 MG CAPSULE TAKE 1 CAPSULE BY MOUTH EVERY* BLOOD SUGAR DIAGNOSTIC STRIPS Test blood sugar twice daily * LANCETS 30 GAUGE Test blood sugar twice daily * TRIAMCINOLONE ACETONIDE 0.1 %* Apply 1 application to affect* OMEPRAZOLE 40 MG CAPSULE,MARIAELENA* Take 1 capsule by mouth once * COMPOUNDED PRESCRIPTION Knee High Compression Stockin* COMPOUNDED PRESCRIPTION Disposable filter papers for * ALBUTEROL SULFATE HFA 90 MCG/* Inhale 2 Puffs as instructed * OMEGA-3 FATTY ACIDS-VITAMIN E* Take 2 capsules by mouth once* CPAP CPAP 9 cmH2O, suitable mask, *Problem List As Of Date 07/21/2017 Noted Resolved Routine General Medical Examination at a [facility]*INVALID FOR*09/07/2013 Class: Chronic More... BENIGN HYPERTENSION [I10] INVALID FOR* More... MIXED HYPERLIPIDEMIA [E78.2] INVALID FOR* OBESITY NOS [E66.9] INVALID FOR* ESOPHAGEAL REFLUX [K21.9] INVALID FOR* FAM HX-CARDIOVAS DIS NEC [Z82.49] INVALID FOR* More... FAMILY HX GI MALIGNANCY [Z80.0] INVALID FOR* More... IRON DEFIC ANEMIA NOS [D50.9] INVALID FOR* More... ALLERGIC RHINITIS NOS [J30.9] INVALID FOR* More... Benign Neoplasm of Colon [D12.6] INVALID FOR* More... HIATAL HERNIA [K44.9] INVALID FOR* Hypothyroidism (acquired) [E03.9] INVALID FOR* ROSEANN (obstructive sleep apnea) [G47.33] INVALID FOR* More... RLS (restless legs syndrome) [G25.81] INVALID FOR* PTSD (post-traumatic stress disorder) [F43.10] INVALID FOR* Familial adenomatous polyposis [D12.6] INVALID FOR* Vitamin D deficiency [E55.9] INVALID FOR* Uncontrolled type 2 diabetes mellitus without c*INVALID FOR*11/13/2016 Obsessive-compulsive disorder [F42.9] INVALID FOR* FAP (familial adenomatous polyposis) [D12.6] INVALID FOR*12/08/2015 History of colonic polyps [Z86.010] INVALID FOR*12/08/2015 Gastroesophageal reflux disease [K21.9] INVALID FOR*12/08/2015 Controlled type 2 diabetes mellitus without com*INVALID FOR*06/24/2017Prescriptions ordered this encounter Disp Refills Start End GABAPENTIN 300 MG CAPSULE 90 c* 2 07/22/2017 08/21/2017 Sig: TAKE 1 CAPSULE BY MOUTH AROUND 5PM NEEDED FOR RLS, MAY INCREASE TO UP TO 3 (THREE) CAPSULES NEEDED CETIRIZINE 10 MG TABLET 90 t* 3 07/22/2017 Route: ORAL Sig: Take 1 tablet by mouth once daily.Medications Discontinued During This Encounter gabapentin (NEURONTIN) 300 mg capsule 90 c* 0 04/29/2017 07/22/2017 Cmt: Med-sync patient. If too soon, we will put new RX on hold for next cycle. Sig: TAKE 1 CAPSULE BY MOUTH AROUND 5PM NEEDED FOR RLS, MAY INCREASE TO UP TO 3 (THREE) CAPSULES NEEDED Disc: Reason for discontinue is not on file. cetirizine (ZYRTEC) 10 mg tablet 90 t* 3 07/17/2016 07/22/2017 Route: ORAL Sig: Take 1 tablet by mouth once daily. Disc: Reason for discontinue is not on file. Status:Closed by LEOBARDO MAHMOOD MD on 07/22/17 OBSOLETE Observed: 06/29/2017 Status: COMPLETED Source: MANTUA 12:00 AM [facility] REPOSITORY Refill (FAMPWS) PAMELA LINDQUIST ([id number]) 1970 MDate Time Provider Department06/29/17 LEOBARDO MAHMOOD FAMYanniWS During your visit today, we recorded the following information about you:Dimple Barrios Cma 07/02/2017 9:23 AM SignedPatient has been identified by name and date of : YesPending Prescriptions Disp Refills SIMVASTATIN 20 MG TABLET 60 tablet Sig: TAKE 1 TABLET BY MOUTH AT BEDTIME ANDREAS: YesRX INSTRUCTIONS:Patient aware RX will be sent to pharmacy. No need to notify patient.Last office visit:06/20/17Next office visit:none scheduledHaileysameera Felixmaribell CmaAllergies As of Date: 06/29/2017(No Known Allergies)Date Reviewed: 06/20/2017Reviewed by: Samantha Zamora RECYCLING OR RUBBISH COLLECTOR - Fully AssessedReason for Visit: Refill Request [94]Order(s):simvastatin (ZOCOR) 20 mg tabletTAKE 1 TABLET BY MOUTH AT BEDTIMEDisp: 60 tabletRfl: 5Prescriptions as of 06/29/2017 Sig: SIMVASTATIN 20 MG TABLET TAKE 1 TABLET BY MOUTH AT BED* LEVOTHYROXINE 50 MCG TABLET Take one tablet by mouth in a* METFORMIN 500 MG TABLET Take 2 tablets by mouth twice* LISINOPRIL 5 MG TABLET Take 1 tablet by mouth once d* FENOFIBRATE 160 MG TABLET Take 1 tablet by mouth once d* CICLOPIROX 0.77 % TOPICAL CRE* Apply 1 application to affect* TRIAMCINOLONE ACETONIDE 0.1 %* 1 application by DENTAL route* FLUTICASONE 50 MCG/ACTUATION * Use 2 Sprays in each nostril * ERGOCALCIFEROL (VITAMIN D2) 5* Take 1 capsule by mouth once * LEVOTHYROXINE 200 MCG TABLET Take 1 tablet by mouth once d* SIMVASTATIN 20 MG TABLET TAKE 1 TABLET BY MOUTH AT BED* FLUOXETINE 20 MG CAPSULE TAKE 1 CAPSULE BY MOUTH EVERY* GABAPENTIN 300 MG CAPSULE TAKE 1 CAPSULE BY MOUTH AROUN* BLOOD SUGAR DIAGNOSTIC STRIPS Test blood sugar twice daily * LANCETS 30 GAUGE Test blood sugar twice daily * TRIAMCINOLONE ACETONIDE 0.1 %* Apply 1 application to affect* OMEPRAZOLE 40 MG CAPSULE,MARIAELENA* Take 1 capsule by mouth once * CETIRIZINE 10 MG TABLET Take 1 tablet by mouth once d* COMPOUNDED PRESCRIPTION Knee High Compression Stockin* COMPOUNDED PRESCRIPTION Disposable filter papers for * ALBUTEROL SULFATE HFA 90 MCG/* Inhale 2 Puffs as instructed * OMEGA-3 FATTY ACIDS-VITAMIN E* Take 2 capsules by mouth once* CPAP CPAP 9 cmH2O, suitable mask, *Problem List As Of Date 06/29/2017 Noted Resolved Routine General Medical Examination at a [facility]*INVALID FOR*09/07/2013 Class: Chronic More... BENIGN HYPERTENSION [I10] INVALID FOR* More... MIXED HYPERLIPIDEMIA [E78.2] INVALID FOR* OBESITY NOS [E66.9] INVALID FOR* ESOPHAGEAL REFLUX [K21.9] INVALID FOR* FAM HX-CARDIOVAS DIS NEC [Z82.49] INVALID FOR* More... FAMILY HX GI MALIGNANCY [Z80.0] INVALID FOR* More... IRON DEFIC ANEMIA NOS [D50.9] INVALID FOR* More... ALLERGIC RHINITIS NOS [J30.9] INVALID FOR* More... Benign Neoplasm of Colon [D12.6] INVALID FOR* More... HIATAL HERNIA [K44.9] INVALID FOR* Hypothyroidism (acquired) [E03.9] INVALID FOR* ROSEANN (obstructive sleep apnea) [G47.33] INVALID FOR* More... RLS (restless legs syndrome) [G25.81] INVALID FOR* PTSD (post-traumatic stress disorder) [F43.10] INVALID FOR* Familial adenomatous polyposis [D12.6] INVALID FOR* Vitamin D deficiency [E55.9] INVALID FOR* Uncontrolled type 2 diabetes mellitus without c*INVALID FOR*11/13/2016 Obsessive-compulsive disorder [F42.9] INVALID FOR* FAP (familial adenomatous polyposis) [D12.6] INVALID FOR*12/08/2015 History of colonic polyps [Z86.010] INVALID FOR*12/08/2015 Gastroesophageal reflux disease [K21.9] INVALID FOR*12/08/2015 Controlled type 2 diabetes mellitus without com*INVALID FOR*06/24/2017Prescriptions ordered this encounter Disp Refills Start End SIMVASTATIN 20 MG TABLET 60 t* 5 07/02/2017 Sig: TAKE 1 TABLET BY MOUTH AT BEDTIMEEncounter Number: [id number] Status:Closed by LEOBARDO MAHMOOD MD on 07/02/17 ALBUMIN/CREAT RATIO Collected: 06/20/2017 Status: F Source: [place] 4:23 PM [facility] REPOSITORY TYPE CODE TESTS RESULT OUT OF REFERENCE UNITS RANGE LAB UCRR 20-300 mg/dL 147.9 Creatinine,Ur ine,Ran LAB UALBR High 0.0-23.0 mg/L Albumin 66.6 Urine Random LAB UALBCR High 0-30 mg/g 45 Albumin/Creat Ratio Result Comment: 30 to 300 mg/g indicates an increased risk for diabetic nephropathy. Greater than 300 mg/g is consistent with clinical nephropathy. (Am J Kidney Disease 1995, 25:107) Performed By: #### UACR #### [facility] [address] [id number] CBC AND DIFFERENTIAL Collected: 06/20/2017 Status: F Source: [place] 4:19 PM [facility] REPOSITORY TYPE CODE TESTS RESULT OUT OF REFERENCE UNITS RANGE LAB WBC 3.70-11.00 k/uL WBC 6.30 LAB RBC 4.20-6.00 m/uL RBC 5.32 LAB HGB 13.0-17.0 g/dL Hemoglobin 14.6 LAB HCT 39.0-51.0 % Hematocrit 40.4 LAB MCV Low 80.0-100.0 fL MCV 75.9 LAB MCH 26.0-34.0 pG MCH 27.4 LAB MCHC High 30.5-36.0 g/dL MCHC 36.1 LAB RDWCV 11.5-15.0 % RDW-CV 13.0 LAB PLTCT 150-400 k/uL Platelet 285 Count LAB MPV 9.0-12.7 fL MPV 9.9 LAB ANEUT % Neut% 65.6 LAB AANEUT 1.45-7.50 k/uL Abs Neut 4.14 LAB ALYMP % Lymph% 25.6 LAB AALYMP 1.00-4.00 k/uL Abs Lymph 1.61 LAB AMONO % Llano% 6.2 LAB AAMONO <0.87 k/uL Abs [place] 0.39 LAB AEOS % Eosin% 1.6 LAB AAEOS <0.46 k/uL Abs Eosin 0.10 LAB ABASO % Baso% 1.0 LAB AABASO <0.11 k/uL Abs Baso 0.06 LAB AUNRBC 0 /100 WBC NRBCs 0.0 LAB ABNRBC <0.01 k/uL Absolute nRBC <0.01 LAB DTYP DTYPE Auto Diff Performed By: #### CBCDIF, BMP, CK, TSH, HBA1C, VITD #### [facility] [address] [place] [id number] BASIC METABOLIC PANL Collected: 06/20/2017 Status: F Source: [place] 4:19 PM [facility] [place] REPOSITORY TYPE CODE TESTS RESULT OUT OF REFERENCE UNITS RANGE LAB GLU High 74-99 mg/dL Glucose 307 Result Comment: The [place] Diabetes Association (ADA) provides guidance for cutoff values for fasting glucose and r andom glucose. The ADA defines fasting as no caloric intake for at least 8 hours. Fasting plasma glucose results between 100 to 125 mg/dL indicate increased risk for diabetes (prediabetes). Fasting plasma glucose results greater than or equal to 126 mg/dL meet the criteria for diagnosis of diabetes. In the absence of unequivocal hyperglycemia, results should be confirmed by repeat testing. In a patient with classic symptoms of hyperglycemia or hyperglycemic crisis, random plasma glucose results greater than or equal to 200 mg/dL meet the criteria for diagnosis of diabetes. Reference: Standards of Medical Care in Diabetes 2016, [place] [employer] Association. Diabetes Care. 2016.39(Suppl 1). LAB BUN 9-24 mg/dL BUN 14 LAB CRET 0.73-1.22 mg/dL Creatinine 0.88 LAB NA Low 136-144 mmol/L Sodium 132 LAB K 3.7-5.1 mmol/L Potassium 4.4 LAB CL Low 97-105 mmol/L Chloride 95 LAB CO2 Low 22-30 mmol/L CO2 21 LAB AGAP 9-18 mmol/L Anion Gap 16 LAB CA 8.5-10.2 mg/dL Calcium, Total 9.0 LAB GFRAA eGFR- Amer. >60 LAB GFRNAA . eGFR-All Other Races >60 Result Comment: eGFR (Estimated GFR) Units of measure: mL/min/1.73 meters squared eGFR is derived from the reexpressed MDRD Study equation using the following parameters: serum creatinine, age, gender and race. The creatinine assay has been calibrated to be traceable to IDMS. An eGFR <60 mL/min/1.73m2 for >3 months is consistent with chronic kidney disease. Refer to KDOQI guidelines for clinical interpretation. In patients with unstable renal function, e.g. those with acute kidney injury, the eGFR may not accurately reflect actual GFR. Performed By: #### CBCDIF, BMP, CK, TSH, HBA1C, VITD #### [facility] [address] [place], [place] [id number] CK Collected: 06/20/2017 Status: F Source: [facility] 4:19 PM [facility] REPOSITORY TYPE CODE TESTS RESULT OUT OF RANGE REFERENCE UNITS LAB CK 51-298 U/L CK 75 Result Comment: Please note the updated, gender-specific reference range for this test (effective 06/07/2016). Performed By: #### CBCDIF, BMP, CK, TSH, HBA1C, VITD #### [facility] [address] [place], [place] [address] TSH Collected: 06/20/2017 Status: F Source: [place] 4:19 PM [facility] REPOSITORY TYPE CODE TESTS RESULT OUT OF RANGE REFERENCE UNITS LAB TSH High 0.400-5.500 uU/mL TSH 8.040 Performed By: #### CBCDIF, BMP, CK, TSH, HBA1C, VITD #### [place] [address] [place], [place] [address] HEMOGLOBIN A1C Collected: 06/20/2017 Status: F Source: [place] 4:19 PM [facility] REPOSITORY TYPE CODE TESTS RESULT OUT OF REFERENCE UNITS RANGE LAB HGBA1C High 4.3-5.6 % Hemoglobin 12.3 A1c LAB HBA0 mg/dL Est. Average 306 Glucose Result Comment: eAG: (Estimated average glucose) is a calculated value from HgbA1c and is brewery representative of the average blood glucose level in the last 2-3 month period. Performed By: #### CBCDIF, BMP, CK, TSH, HBA1C, VITD #### [facility] [address] [place], [place] [address] VITAMIN D 25 HYDROXY Collected: 06/20/2017 Status: F Source: [place] 4:19 PM [facility] REPOSITORY TYPE CODE TESTS RESULT OUT OF REFERENCE UNITS RANGE LAB VITD Low 31.0-80.0 ng/mL Vitamin D 24.0 25 Hydroxy Result Comment: Classification of 25 [place] Vitamin D status: Insufficiency/Moderate Deficiency: < or = 30 ng/mL Sufficiency/Optimal Levels: 31 to 80 ng/mL Toxicity: > 100 ng/mL Test performed by chemiluminescent immunoassay. Performed By: #### CBCDIF, BMP, CK, TSH, HBA1C, VITD #### [facility] [address] [place], [place] [address] PROGRESS Observed: 06/20/2017 Status: COMPLETED Source: [place] 3:46 PM [facility] REPOSITORY HNO ID: [id number]: Leobardo Urias: (none)Author Type: PhysicianType: Progress NotesFiled: 06/20/2017 4:04 PMNote Text:Patient presents with:Recheck: 6 month f/upHPI: Patient presents today for office visit for follow up.DM: has noted his sugar may be up. Has not been checking them. Has a drymouth and wonders if they are up. Has been losing some weight as well andwas unsure if it was diet related.HYPOTHYROID: no changes in hair or skin. Has had some weight changes asabove. Energy is stable.VIT D: has been taking his vitamin d. Due for labs.HLD:no myalgias.PSYCH: stable. No side effects of meds. Sleeping well.Complains of cough and sinus congestion for two months.Coughing up sputum.No fever or chills.No short of breath.Some sore throat.ROSEANN: sleeping well. Uses cpap. Does not always use it but feels worse.MEDICATIONS:Current Outpatient Prescriptions:ergocalciferol, vitamin D2, (DRISDOL) 50,000 unit capsule Take 1 capsuleby mouth once each week.levothyroxine (SYNTHROID) 200 mcg tablet Take 1 tablet by mouth oncedaily.levothyroxine (SYNTHROID) 25 mcg tablet TAKE 1 TABLET BY MOUTH EVERY DAYIN ADDITION TO 200MCG TABLETsimvastatin (ZOCOR) 20 mg tablet TAKE 1 TABLET BY MOUTH AT BEDTIMEmetFORMIN (GLUCOPHAGE) 500 mg tablet TAKE 1 TABLET TWICE DAILY WITH MEALSFLUoxetine (PROZAC) 20 mg capsule TAKE 1 CAPSULE BY MOUTH EVERY DAYgabapentin (NEURONTIN) 300 mg capsule TAKE 1 CAPSULE BY MOUTH AROUND 5PMAS NEEDED FOR RLS, MAY INCREASE TO UP TO 3 (THREE) CAPSULES NEEDEDFenofibrate (LOFIBRA) 160 mg tablet Take 1 tablet by mouth once daily.blood sugar diagnostic (FREESTYLE LITE STRIPS) test strip Test blood sugartwice daily E11.9lancets (UNILET SUPER THIN LANCETS) 30 gauge misc Test blood sugar twicedaily E11.9triamcinolone acetonide (KENALOG) 0.1 % cream Apply 1 application toaffected area twice daily.Omeprazole (PRILOSEC) 40 mg capsule Take 1 capsule by mouth once daily.fluticasone (FLONASE) 50 mcg/actuation nasal spray Use 2 Sprays in eachnostril once daily. Rinse mouth after use.cetirizine (ZYRTEC) 10 mg tablet Take 1 tablet by mouth once daily.Compression Stockings Knee High Compression Stockings 20-30 mm, DX:chronic peripheral venous insufficiency, edematriamcinolone (KENALOG IN ORABASE) 0.1 % paste 1 application by DENTALroute three times daily.COMPOUNDED PRESCRIPTION Disposable filter papers for CPAP machine, oldfilter papers are no good. Dx ROSEANN 327.23ciclopirox (LOPROX) 0.77 % cream Apply 1 application to affected areatwice daily.albuterol HFA (PROAIR HFA) 90 mcg/actuation inhaler Inhale 2 Puffs asinstructed every 6 hours as needed for Wheezing/Shortness of Breath.[place]-3 Fatty Acids-Vitamin E (FISH OIL) 1,000 mg cap Take 2 capsules bymouth once daily.CPAP CPAP 9 cmH2O, suitable mask, tubing, humidifier, filters. [employer]etimesupplies. Dx: 327.23 - Obstructive sleep apneaNo current facility-administered medications for this visit.ALLERGIES:ALLERGIESNo Known AllergiesPAST MEDICAL HISTORYDiagnosis Date- Benign neoplasm of colon- Diaphragmatic hernia without mention of obstruction or gangrene- Diaphragmatic hernia without mention of obstruction or gangrene- Esophageal reflux- Familial adenomatous polyposis 11/2013 APC mutation- Family history of malignant neoplasm of gastrointestinal tract- Obstructive sleep apnea on cpap- Pure hypercholesterolemia- Scarlet fever as a child- Uncontrolled type 2 diabetes mellitus without complication, withoutlong-term current use of insulin ([facility]) 11/22/2015- Unspecified essential hypertension- Unspecified hypothyroidismPAST SURGICAL HISTORYProcedure Laterality Date- COLONOS W/REM POLYP SNARE polyps - cecum - multiple small, 40cm- 3, and rectum- COLONOS W/REM POLYP SNARE 02/04/2017 For adenomatous polyps-history of familial adenomatous zahmmqlhn-ots-hpvmeifypo-up- COLONOSCOP W/ OR W/O BRSH SPEC 09/24/2013 Colonoscopy- COLONOSCOP W/ OR W/O BRSH SPEC 11/26/14 Colonoscopy- COLONOSCOP W/ OR W/O BRSH SPEC 12/08/15 Colonoscopy ([facility])- EGD W/O BRSH SPECIMEN W/BX hiatal hernia - moderate- EGD W/O OR W/BRUSH/WASH 05/28/2014 EGD- EGD W/O OR W/BRUSH/WASH 12/08/15 EGD ([facility])- F COLONOSCOPY WITH POLYPECTOMY 02/05/13 multiple small adenomatous colon polyps removed-patient needs repeatscope in 2 years- PAST SURGICAL HISTORY OF left great toe, nail removal (trauma)- PAST SURGICAL HISTORY OF 1990 ORIF right femur -- [place]- SIGMOIDOSCOPY FLEX DIAG 08/27/2013 Sigmoidoscopy, flexibleFAMILY HISTORYProblem Relation Age of Onset- Coronary Artery Disease Father age 40's- Lipids Father- Hypertension Father- GI Father 100+ colonic polyps, ?colon cancer late 50s- Breast Cancer Mother 42- Stroke Paternal Grandmother- Colon Cancer Paternal Grandmother dx 40s- Diabetes Maternal Grandmother Social History Marital status: Spouse name: Years of education: Number of children: 2Social History Main Topics Smoking status: Former Smoker Packs/day: 1.00 Years: 5.00 Types: Cigarettes Quit date: 06/24/1997 Smokeless status: Never Used Comment: ocassional cigars Alcohol use: Yes Comment: Rare for holidays Drug use: No Sexual activity: Yes Partners with: FemaleReviewed current medications, allergies, past medical history, surgicalhistory, family history and social history today.REVIEW OF SYSTEMSAll other reviewed and negative other than HPI.HEALTH MAINTENANCE:Reviewed health maintenance issues today and recommended the following indetail.DILATED RETINAL EXAM -beginning of 2016DIABETIC FOOT EXAM due on 11/27/2016URINE ALBUMIN CREATININE RATIO due on 01/15/2017HBA1C due on 05/16/2017VITALS:BP 120/80 (BP Site: Right Arm, BP Position: Sitting, BP Cuff Size: LargeAdult) Pulse 60 Resp 18 Wt 109.5 kg (241 lb 6.4 oz) BMI 35.65kg/m2Last 4 Encounter Wt Readings: Date: Wt: 06/20/2017 109.5 kg (241 lb 6.4 oz) 11/29/2016 121.9 kg (268 lb 12.8 oz) 11/13/2016 120.5 kg (265 lb 9.6 oz) 05/29/2016 113.9 kg (251 lb)PHYSICAL EXAMINATION:General appearance: Well appearing, alert, in no acute distress,well-hydrated, well nourished.Skin: Skin color, texture, turgor normal, no suspicious rashes or lesionsHead: Normocephalic, no masses, lesions, tenderness or abnormalitiesLungs: Lungs clear to auscultation. No wheezing, rhonchi, ralesHeart: RRR without murmur, gallop, or rubs. No ectopyAbdomen: Normal abdominal exam, Abdomen soft, non-tender. Bowel soundsnormal. No masses, organomegalyExtremities: No deformities, edema, skin discoloration, clubbing orcyanosis. Good capillary refill. , venous stasis changesFeet:Shoes and socks removed, No deformities, ulcers, calluses, normaldistal pulses and sensitive to 10 gm monofilamentPSYCH:Affect normal. Normal speech. Normal eye contactASSESSMENT/PLAN:1. Essential hypertension, benign - ICD9: 401.1, ICD10: I10 (primarydiagnosis)- good control- Continue current medication(s)- Goal of BP <140/902. Mixed hyperlipidemia - ICD9: 272.2, ICD10: E78.2- to be determined upon return of lab results- Continue current medication.3. Iron deficiency anemia, unspecified iron deficiency anemia type - ICD9:280.9, ICD10: D50.9- follow labs.4. Hypothyroidism (acquired) - ICD9: 244.9, ICD10: E03.9- Instructed patient on importance of taking on an empty stomach eitherfirst thing in the morning or at bedtime.5. ROSEANN (obstructive sleep apnea) - ICD9: 327.23, ICD10: G47.33- continue to follow.6. PTSD (post-traumatic stress disorder) - ICD9: 309.81, ICD10: F43.10- continue meds.7. Vitamin D deficiency - ICD9: 268.9, ICD10: E55.98. Controlled type 2 diabetes mellitus without complication, withoutlong-term current use of insulin (HCC) - ICD9: 250.00, ICD10: E11.9Controlled.- Continue current medications- ALBUMIN/CREAT RATIO RND UR- HGB A1C9. Weight loss - ICD9: 783.21, ICD10: R63.4- will follow.10. Tinea pedis of left foot - ICD9: 110.4, ICD10: B35.311. Oral aphthous ulcer - ICD9: 528.2, ICD10: K12.012. Nasal congestion - ICD9: 478.19, ICD10: R09.81Leobardo Mahmood MD CNOV Observed: 06/20/2017 Status: COMPLETED Source: [place] 3:20 PM [facility] REPOSITORY Office Visit (FAMPWS) [facility]INDQUIST [facility][id number]) 1970 [facility] Ewemgddmyy97/28/17 3:20 PM LEOBARDO MAHMOOD During your visit today, we recorded the following information about you: Pulse Respiration Blood pressure Weight 60/minute 18/minute 120/80 109.5 kgLeobardo Mahmood MD 06/20/2017 4:04 PM SignedPatient presents with:Recheck: 6 month f/upHPI: Patient presents today for office visit for follow up.DM: has noted his sugar may be up. Has not been checking them. Has a dry mouthand wonders if they are up. Has been losing some weight as well and was unsureif it was diet related.HYPOTHYROID: no changes in hair or skin. Has had some weight changes as above.Energy is stable.VIT D: has been taking his vitamin d. Due for labs.HLD:no myalgias.PSYCH: stable. No side effects of meds. Sleeping well.Complains of cough and sinus congestion for two months.Coughing up sputum.No fever or chills.No short of breath.Some sore throat.ROSEANN: sleeping well. Uses cpap. Does not always use it but feels worse.MEDICATIONS:Current Outpatient Prescriptions:ergocalciferol, vitamin D2, (DRISDOL) 50,000 unit capsule Take 1 capsule bymouth once each week.levothyroxine (SYNTHROID) 200 mcg tablet Take 1 tablet by mouth once daily.levothyroxine (SYNTHROID) 25 mcg tablet TAKE 1 TABLET BY MOUTH EVERY DAY INADDITION TO 200MCG TABLETsimvastatin (ZOCOR) 20 mg tablet TAKE 1 TABLET BY MOUTH AT BEDTIMEmetFORMIN (GLUCOPHAGE) 500 mg tablet TAKE 1 TABLET TWICE DAILY WITH MEALSFLUoxetine (PROZAC) 20 mg capsule TAKE 1 CAPSULE BY MOUTH EVERY DAYgabapentin (NEURONTIN) 300 mg capsule TAKE 1 CAPSULE BY MOUTH AROUND 5PM ASNEEDED FOR RLS, MAY INCREASE TO UP TO 3 (THREE) CAPSULES NEEDEDFenofibrate (LOFIBRA) 160 mg tablet Take 1 tablet by mouth once daily.blood sugar diagnostic (FREESTYLE LITE STRIPS) test strip Test blood sugartwice daily E11.9lancets (UNILET SUPER THIN LANCETS) 30 gauge misc Test blood sugar twice daily E11.9triamcinolone acetonide (KENALOG) 0.1 % cream Apply 1 application to affectedarea twice daily.Omeprazole (PRILOSEC) 40 mg capsule Take 1 capsule by mouth once daily.fluticasone (FLONASE) 50 mcg/actuation nasal spray Use 2 Sprays in each nostrilonce daily. Rinse mouth after use.cetirizine (ZYRTEC) 10 mg tablet Take 1 tablet by mouth once daily.Compression Stockings Knee High Compression Stockings 20-30 mm, DX: chronicperipheral venous insufficiency, edematriamcinolone (KENALOG IN ORABASE) 0.1 % paste 1 application by DENTAL routethree times daily.COMPOUNDED PRESCRIPTION Disposable filter papers for CPAP machine, old filterpapers are no good. Dx ROSEANN 327.23ciclopirox (LOPROX) 0.77 % cream Apply 1 application to affected area twicedaily.albuterol HFA (PROAIR HFA) 90 mcg/actuation inhaler Inhale 2 Puffs asinstructed every 6 hours as needed for Wheezing/Shortness of Breath.[place]-3 Fatty Acids-Vitamin E (FISH OIL) 1,000 mg cap Take 2 capsules by mouthonce daily.CPAP CPAP 9 cmH2O, suitable mask, tubing, humidifier, filters. [employer]etimesupplies. Dx: 327.23 - Obstructive sleep apneaNo current facility-administered medications for this visit.ALLERGIES:ALLERGIESNo Known AllergiesPAST MEDICAL HISTORYDiagnosis Date- Benign neoplasm of colon- Diaphragmatic hernia without mention of obstruction or gangrene- Diaphragmatic hernia without mention of obstruction or gangrene- Esophageal reflux- Familial adenomatous polyposis 11/2013 APC mutation- Family history of malignant neoplasm of gastrointestinal tract- Obstructive sleep apnea on cpap- Pure hypercholesterolemia- Scarlet fever as a child- Uncontrolled type 2 diabetes mellitus without complication, without long-termcurrent use of insulin ([facility]) 11/22/2015- Unspecified essential hypertension- Unspecified hypothyroidismPAST SURGICAL HISTORYProcedure Laterality Date- COLONOS W/REM POLYP SNARE polyps - cecum - multiple small, 40cm- 3, and rectum- COLONOS W/REM POLYP SNARE 02/04/2017 For adenomatous polyps-history of familial adenomatous zznphxwmq-bgc-bazinbrhho-up- COLONOSCOP W/ OR W/O BRSH SPEC 09/24/2013 Colonoscopy- COLONOSCOP W/ OR W/O BRSH SPEC 11/26/14 Colonoscopy- COLONOSCOP W/ OR W/O BRSH SPEC 12/08/15 Colonoscopy ([facility])- EGD W/O BRSH SPECIMEN W/BX hiatal hernia - moderate- EGD W/O OR W/BRUSH/WASH 05/28/2014 EGD- EGD W/O OR W/BRUSH/WASH 12/08/15 EGD ([facility])- F COLONOSCOPY WITH POLYPECTOMY 02/05/13 multiple small adenomatous colon polyps removed-patient needs repeat scope in2 years- PAST SURGICAL HISTORY OF left great toe, nail removal (trauma)- PAST SURGICAL HISTORY OF 1990 ORIF right femur -- [place]- SIGMOIDOSCOPY FLEX DIAG 08/27/2013 Sigmoidoscopy, flexibleFAMILY HISTORYProblem Relation Age of Onset- Coronary Artery Disease Father age 40's- Lipids Father- Hypertension Father- GI Father 100+ colonic polyps, ?colon cancer late 50s- Breast Cancer Mother 42- Stroke Paternal Grandmother- Colon Cancer Paternal Grandmother dx 40s- Diabetes Maternal Grandmother Social History Marital status: Spouse name: Years of education: Number of children: 2Social History Main Topics Smoking status: Former Smoker Packs/day: 1.00 Years: 5.00 Types: Cigarettes Quit date: 06/24/1997 Smokeless status: Never Used Comment: ocassional cigars Alcohol use: Yes Comment: Rare for holidays Drug use: No Sexual activity: Yes Partners with: FemaleReviewed current medications, allergies, past medical history, surgicalhistory, family history and social history today.REVIEW OF SYSTEMSAll other reviewed and negative other than HPI.HEALTH MAINTENANCE:Reviewed health maintenance issues today and recommended the following indetail.DILATED RETINAL EXAM -beginning of 2016DIABETIC FOOT EXAM due on 11/27/2016URINE ALBUMIN CREATININE RATIO due on 01/15/2017HBA1C due on 05/16/2017VITALS:BP 120/80 (BP Site: Right Arm, BP Position: Sitting, BP Cuff Size: Large Adult) Pulse 60 Resp 18 Wt 109.5 kg (241 lb 6.4 oz) BMI 35.65 kg/m2Last 4 Encounter Wt Readings: Date: Wt: 06/20/2017 109.5 kg (241 lb 6.4 oz) 11/29/2016 121.9 kg (268 lb 12.8 oz) 11/13/2016 120.5 kg (265 lb 9.6 oz) 05/29/2016 113.9 kg (251 lb)PHYSICAL EXAMINATION:General appearance: Well appearing, alert, in no acute distress, well-hydrated,well nourished.Skin: Skin color, texture, turgor normal, no suspicious rashes or lesionsHead: Normocephalic, no masses, lesions, tenderness or abnormalitiesLungs: Lungs clear to auscultation. No wheezing, rhonchi, ralesHeart: RRR without murmur, gallop, or rubs. No ectopyAbdomen: Normal abdominal exam, Abdomen soft, non-tender. Bowel sounds normal.No masses, organomegalyExtremities: No deformities, edema, skin discoloration, clubbing or cyanosis.Good capillary refill. , venous stasis changesFeet:Shoes and socks removed, No deformities, ulcers, calluses, normal distalpulses and sensitive to 10 gm monofilamentPSYCH:Affect normal. Normal speech. Normal eye contactASSESSMENT/PLAN:1. Essential hypertension, benign - ICD9: 401.1, ICD10: I10 (primary diagnosis)- good control- Continue current medication(s)- Goal of BP ANDlt;140/902. Mixed hyperlipidemia - ICD9: 272.2, ICD10: E78.2- to be determined upon return of lab results- Continue current medication.3. Iron deficiency anemia, unspecified iron deficiency anemia type - ICD9:280.9, ICD10: D50.9- follow labs.4. Hypothyroidism (acquired) - ICD9: 244.9, ICD10: E03.9- Instructed patient on importance of taking on an empty stomach either firstthing in the morning or at bedtime.5. ROSEANN (obstructive sleep apnea) - ICD9: 327.23, ICD10: G47.33- continue to follow.6. PTSD (post-traumatic stress disorder) - ICD9: 309.81, ICD10: F43.10- continue meds.7. Vitamin D deficiency - ICD9: 268.9, ICD10: E55.98. Controlled type 2 diabetes mellitus without complication, without long-termcurrent use of insulin (HCC) - ICD9: 250.00, ICD10: E11.9Controlled.- Continue current medications- ALBUMIN/CREAT RATIO RND UR- HGB A1C9. Weight loss - ICD9: 783.21, ICD10: R63.4- will follow.10. Tinea pedis of left foot - ICD9: 110.4, ICD10: B35.311. Oral aphthous ulcer - ICD9: 528.2, ICD10: K12.012. Nasal congestion - ICD9: 478.19, ICD10: R09.81Leobardo Mahmood, MDReferring Provider: SELF [200]Allergies As of Date: 06/20/2017(No Known Allergies)Date Reviewed: 06/20/2017Reviewed by: Samantha Zamora LPN - Fully AssessedReason for Visit: Recheck [92] Cmt: 6 month f/upPrimary Visit Diagnosis:Essential hypertension, benign [I10] Other Visit Diagnoses:Mixed hyperlipidemia [E78.2] Iron deficiency anemia, unspecified iron deficiency anemia type [D50.9] Hypothyroidism (acquired) [E03.9] ROSEANN (obstructive sleep apnea) [G47.33] PTSD (post-traumatic stress disorder) [F43.10] Vitamin D deficiency [E55.9] Controlled type 2 diabetes mellitus without complication, without long-term current use of insulin (HCC) [E11.9] Weight loss [R63.4] Tinea pedis of left foot [B35.3] Oral aphthous ulcer [K12.0] Nasal congestion [R09.81]Order(s):ALBUMIN/CREAT RATIO RND UR [SQUACR] Order #: [id number] FUTURE HGB A1C [JSOHV9E] Order #: [id number] FUTURE BASIC METABOLIC PNL [SQBMP] Order #: [id number] FUTURE TSH BLD [SQTSH] Order #: [id number] FUTURE VITAMIN D 25 HYDROXY [SQVITD] Order #: [id number] FUTURE CBC + DIFF [SQCBCDIF] Order #: [id number] FUTURE Fenofibrate (LOFIBRA) 160 mg tabletTake 1 tablet by mouth once daily.Disp: 90 tabletRfl: 0 CK CREATINE KINASE [SQCK] Order #: [id number] FUTURE ciclopirox (LOPROX) 0.77 % creamApply 1 application to affected area twice daily.Disp: 30 gRfl: 1 triamcinolone (KENALOG IN ORABASE) 0.1 % paste1 application by DENTAL route three times daily.Disp: 30 gRfl: 1 fluticasone (FLONASE) 50 mcg/actuation nasal sprayUse 2 Sprays in each nostril once daily. Rinse mouth after use.Disp: 3 BottleRfl: 3Prescriptions as of 06/20/2017 Sig: FENOFIBRATE 160 MG TABLET Take 1 tablet by mouth once d* CICLOPIROX 0.77 % TOPICAL CRE* Apply 1 application to affect* TRIAMCINOLONE ACETONIDE 0.1 %* 1 application by DENTAL route* FLUTICASONE 50 MCG/ACTUATION * Use 2 Sprays in each nostril * ERGOCALCIFEROL (VITAMIN D2) 5* Take 1 capsule by mouth once * LEVOTHYROXINE 200 MCG TABLET Take 1 tablet by mouth once d* LEVOTHYROXINE 25 MCG TABLET TAKE 1 TABLET BY MOUTH EVERY * SIMVASTATIN 20 MG TABLET TAKE 1 TABLET BY MOUTH AT BED* METFORMIN 500 MG TABLET TAKE 1 TABLET TWICE DAILY WIT* FLUOXETINE 20 MG CAPSULE TAKE 1 CAPSULE BY MOUTH EVERY* GABAPENTIN 300 MG CAPSULE TAKE 1 CAPSULE BY MOUTH AROUN* BLOOD SUGAR DIAGNOSTIC STRIPS Test blood sugar twice daily * LANCETS 30 GAUGE Test blood sugar twice daily * TRIAMCINOLONE ACETONIDE 0.1 %* Apply 1 application to affect* OMEPRAZOLE 40 MG CAPSULE,MARIAELENA* Take 1 capsule by mouth once * CETIRIZINE 10 MG TABLET Take 1 tablet by mouth once d* COMPOUNDED PRESCRIPTION Knee High Compression Stockin* COMPOUNDED PRESCRIPTION Disposable filter papers for * ALBUTEROL SULFATE HFA 90 MCG/* Inhale 2 Puffs as instructed * OMEGA-3 FATTY ACIDS-VITAMIN E* Take 2 capsules by mouth once* CPAP CPAP 9 cmH2O, suitable mask, *Problem List As Of Date 06/20/2017 Noted Resolved Routine General Medical Examination at a [facility]*INVALID FOR*09/07/2013 Class: Chronic More... BENIGN HYPERTENSION [I10] INVALID FOR* More... MIXED HYPERLIPIDEMIA [E78.2] INVALID FOR* OBESITY NOS [E66.9] INVALID FOR* ESOPHAGEAL REFLUX [K21.9] INVALID FOR* FAM HX-CARDIOVAS DIS NEC [Z82.49] INVALID FOR* More... FAMILY HX GI MALIGNANCY [Z80.0] INVALID FOR* More... IRON DEFIC ANEMIA NOS [D50.9] INVALID FOR* More... ALLERGIC RHINITIS NOS [J30.9] INVALID FOR* More... Benign Neoplasm of Colon [D12.6] INVALID FOR* More... HIATAL HERNIA [K44.9] INVALID FOR* Hypothyroidism (acquired) [E03.9] INVALID FOR* ROSEANN (obstructive sleep apnea) [G47.33] INVALID FOR* More... RLS (restless legs syndrome) [G25.81] INVALID FOR* PTSD (post-traumatic stress disorder) [F43.10] INVALID FOR* Familial adenomatous polyposis [D12.6] INVALID FOR* Vitamin D deficiency [E55.9] INVALID FOR* Uncontrolled type 2 diabetes mellitus without c*INVALID FOR*11/13/2016 Obsessive-compulsive disorder [F42.9] INVALID FOR* FAP (familial adenomatous polyposis) [D12.6] INVALID FOR*12/08/2015 History of colonic polyps [Z86.010] INVALID FOR*12/08/2015 Gastroesophageal reflux disease [K21.9] INVALID FOR*12/08/2015 Controlled type 2 diabetes mellitus without com*INVALID FOR*Prescriptions ordered this encounter Disp Refills Start End FENOFIBRATE 160 MG TABLET 90 t* 0 06/20/2017 Route: ORAL Sig: Take 1 tablet by mouth once daily. CICLOPIROX 0.77 % TOPICAL CREAM 30 g 1 06/20/2017 Route: TOPICAL Sig: Apply 1 application to affected area twice daily. TRIAMCINOLONE ACETONIDE 0.1 % DENTAL* 30 g 1 06/20/2017 Route: DENTAL Si application by DENTAL route three times daily. FLUTICASONE 50 MCG/ACTUATION NASAL S* 3 Eduardo* 3 06/20/2017 Route: EACH NOSTRIL Sig: Use 2 Sprays in each nostril once daily. Rinse mouth after use.Medications Discontinued During This Encounter SUMAtriptan (IMITREX) 50 mg tablet 06/20/2017 Class: Historical Med Route: ORAL Sig: Take 50 mg by mouth as needed. Disc: Reason for discontinue is not on file. COMPOUNDED PRESCRIPTION 1 Un* 0 02/01/2015 06/20/2017 Class: Print RX Sig: Ankle/foot night splint: DX: heel spurs Disc: Reason for discontinue is not on file. levothyroxine (SYNTHROID) 25 mcg tab* 30 t* 12 05/21/2016 06/20/2017 Sig: TAKE 1 TABLET BY MOUTH EVERY DAY IN ADDITION TO 200MCG TABLET Disc: Reason for discontinue is not on file. Fenofibrate (LOFIBRA) 160 mg tablet 90 t* 0 02/19/2017 06/20/2017 Route: ORAL Sig: Take 1 tablet by mouth once daily. Disc: Reason for discontinue is not on file. ciclopirox (LOPROX) 0.77 % cream 30 g 1 11/22/2015 06/20/2017 Route: TOPICAL Sig: Apply 1 application to affected area twice daily. Disc: Reason for discontinue is not on file. triamcinolone (KENALOG IN ORABASE) 0* 30 g 1 11/28/2015 06/20/2017 Route: DENTAL Si application by DENTAL route three times daily. Disc: Reason for discontinue is not on file. fluticasone (FLONASE) 50 mcg/actuati* 3 Eduardo* 3 08/20/2016 06/20/2017 Route: EACH NOSTRIL Sig: Use 2 Sprays in each nostril once daily. Rinse mouth after use. Disc: Reason for discontinue is not on file.Disposition: Return in about 3 months (around 09/18/2017).Follow-up and Disposition History RecordedEncounter Number: [id number] Status:Closed by LEOBARDO MAHMOOD MD on 06/20/17 OBSOLETE Observed: 06/05/2017 Status: COMPLETED Source: [place] 12:00 AM [facility] REPOSITORY [facility] PAMELA LINDQUIST ([id number]) 1970 MDate Time Provider Gdcahzvwme53/13/17 LEOBARDO MAHMOOD During your visit today, we recorded the following information about you:Paloma Nguyen [facility] 06/05/2017 3:57 PM SignedPatient has been identified by name and date of : YesRX INSTRUCTIONS:Patient aware RX will be sent to pharmacy. No need to notify patient.Last visit 11/13/16No future visitLast filled Synthroid 25 mcg 11/15/16 30 with 0Last filled Vitamin D 2 03/12/17 12 with 0Paloma Nguyen CmaAllergies As of Date: 06/05/2017(No Known Allergies)Date Reviewed: 02/11/2017Reviewed by: Jess Rivas LPN - Fully AssessedReason for Visit: Refill Request [94]Order(s):ergocalciferol, vitamin D2, (DRISDOL) 50,000 unit capsuleTake 1 capsule by mouth once each week.Disp: 8 capsuleRfl: 1 levothyroxine (SYNTHROID) 200 mcg tabletTake 1 tablet by mouth once daily.Disp: 66 tabletRfl: 1 levothyroxine (SYNTHROID) 25 mcg tabletTAKE 1 TABLET BY MOUTH EVERY DAY IN ADDITION TO 200MCG TABLETDisp: 72 tabletRfl: 1Prescriptions as of 06/05/2017 Sig: ERGOCALCIFEROL (VITAMIN D2) 5* Take 1 capsule by mouth once * LEVOTHYROXINE 200 MCG TABLET Take 1 tablet by mouth once d* LEVOTHYROXINE 25 MCG TABLET TAKE 1 TABLET BY MOUTH EVERY * SIMVASTATIN 20 MG TABLET TAKE 1 TABLET BY MOUTH AT BED* METFORMIN 500 MG TABLET TAKE 1 TABLET TWICE DAILY WIT* FLUOXETINE 20 MG CAPSULE TAKE 1 CAPSULE BY MOUTH EVERY* GABAPENTIN 300 MG CAPSULE TAKE 1 CAPSULE BY MOUTH AROUN* FENOFIBRATE 160 MG TABLET Take 1 tablet by mouth once d* BLOOD SUGAR DIAGNOSTIC STRIPS Test blood sugar twice daily * LANCETS 30 GAUGE Test blood sugar twice daily * TRIAMCINOLONE ACETONIDE 0.1 %* Apply 1 application to affect* OMEPRAZOLE 40 MG CAPSULE,MARIAELENA* Take 1 capsule by mouth once * FLUTICASONE 50 MCG/ACTUATION * Use 2 Sprays in each nostril * CETIRIZINE 10 MG TABLET Take 1 tablet by mouth once d* LEVOTHYROXINE 25 MCG TABLET TAKE 1 TABLET BY MOUTH EVERY * COMPOUNDED PRESCRIPTION Knee High Compression Stockin* TRIAMCINOLONE ACETONIDE 0.1 %* 1 application by DENTAL route* COMPOUNDED PRESCRIPTION Disposable filter papers for * CICLOPIROX 0.77 % TOPICAL CRE* Apply 1 application to affect* COMPOUNDED PRESCRIPTION Ankle/foot night splint: DX: * ALBUTEROL SULFATE HFA 90 MCG/* Inhale 2 Puffs as instructed * OMEGA-3 FATTY ACIDS-VITAMIN E* Take 2 capsules by mouth once* SUMATRIPTAN 50 MG TABLET Take 50 mg by mouth as needed. CPAP CPAP 9 cmH2O, suitable mask, *Problem List As Of Date 06/05/2017 Noted Resolved Routine General Medical Examination at a [facility]*INVALID FOR*09/07/2013 Class: Chronic More... BENIGN HYPERTENSION [I10] INVALID FOR* More... MIXED HYPERLIPIDEMIA [E78.2] INVALID FOR* OBESITY NOS [E66.9] INVALID FOR* ESOPHAGEAL REFLUX [K21.9] INVALID FOR* FAM HX-CARDIOVAS DIS NEC [Z82.49] INVALID FOR* More... FAMILY HX GI MALIGNANCY [Z80.0] INVALID FOR* More... IRON DEFIC ANEMIA NOS [D50.9] INVALID FOR* More... ALLERGIC RHINITIS NOS [J30.9] INVALID FOR* More... Benign Neoplasm of Colon [D12.6] INVALID FOR* More... HIATAL HERNIA [K44.9] INVALID FOR* Hypothyroidism (acquired) [E03.9] INVALID FOR* ROSEANN (obstructive sleep apnea) [G47.33] INVALID FOR* More... RLS (restless legs syndrome) [G25.81] INVALID FOR* PTSD (post-traumatic stress disorder) [F43.10] INVALID FOR* Familial adenomatous polyposis [D12.6] INVALID FOR* Vitamin D deficiency [E55.9] INVALID FOR* Uncontrolled type 2 diabetes mellitus without c*INVALID FOR*11/13/2016 Obsessive-compulsive disorder [F42.9] INVALID FOR* FAP (familial adenomatous polyposis) [D12.6] INVALID FOR*12/08/2015 History of colonic polyps [Z86.010] INVALID FOR*12/08/2015 Gastroesophageal reflux disease [K21.9] INVALID FOR*12/08/2015 Controlled type 2 diabetes mellitus without com*INVALID FOR*Prescriptions ordered this encounter Disp Refills Start End ERGOCALCIFEROL (VITAMIN D2) 50,000 U* 8 ca* 1 06/05/2017 Cmt: Med-sync patient. If too soon, we will put new RX on hold for next cycle. Sig: Take 1 capsule by mouth once each week. LEVOTHYROXINE 200 MCG TABLET 66 t* 1 06/05/2017 Cmt: Med-sync patient. If too soon, we will put new RX on hold for next cycle. Sig: Take 1 tablet by mouth once daily. LEVOTHYROXINE 25 MCG TABLET 72 t* 1 06/05/2017 Cmt: Med-sync patient. If too soon, we will put new RX on hold for next cycle. Sig: TAKE 1 TABLET BY MOUTH EVERY DAY IN ADDITION TO 200MCG TABLETMedications Discontinued During This Encounter ergocalciferol, vitamin D2, (VITAMIN* 12 c* 0 03/12/2017 06/05/2017 Route: ORAL Sig: Take 1 capsule by mouth once each week. Disc: Reason for discontinue is not on file. levothyroxine (SYNTHROID) 200 mcg ta* 90 t* 3 07/18/2016 06/05/2017 Cmt: Pt takes in addition to 25mcg for a total of 225mcg daily. Route: ORAL Sig: Take 1 tablet by mouth once daily. Disc: Reason for discontinue is not on file. levothyroxine (SYNTHROID) 25 mcg tab* 30 t* 0 11/15/2016 06/05/2017 Route: ORAL Sig: Take 1 tablet by mouth once daily. Take on empty stomach. For thyroid. Disc: Reason for discontinue is not on file. Status:Closed by LEOBARDO MAHMOOD MD on 06/05/17 OBSOLETE Observed: 05/28/2017 Status: COMPLETED Source: [place] 12:00 AM [facility] REPOSITORY Refill ([facility]) PAMELA LINDQUIST ([id number]) 1970 MDate Time Provider Lhiksgwldr39/5/17 LEOBARDO MAHMOOD During your visit today, we recorded the following information about you:Krysten Jay Ma 05/28/2017 3:23 PM SignedPatient has been identified by name and date of : YesRX INSTRUCTIONS:Patient aware RX will be sent to pharmacy. No need to notify patient.Krysten Pelayo OV: 10/2016Last refill: 02/2017Leobardo Mahmood MD 05/28/2017 3:30 PM SignedNeeds Opalsameera Barrios Sophia 05/28/2017 3:38 PM SignedLeft detailed message for patient.Dimple Barrios CmaAllergies As of Date: 05/28/2017(No Known Allergies)Date Reviewed: 02/11/2017Reviewed by: Jess Rivas LPN - Fully AssessedReason for Visit: Refill Request [94]Order(s):simvastatin (ZOCOR) 20 mg tabletTAKE 1 TABLET BY MOUTH AT BEDTIMEDisp: 30 tabletRfl: 0 metFORMIN (GLUCOPHAGE) 500 mg tabletTAKE 1 TABLET TWICE DAILY WITH MEALSDisp: 50 tabletRfl: 0Prescriptions as of 05/28/2017 Sig: SIMVASTATIN 20 MG TABLET TAKE 1 TABLET BY MOUTH AT BED* METFORMIN 500 MG TABLET TAKE 1 TABLET TWICE DAILY WIT* FLUOXETINE 20 MG CAPSULE TAKE 1 CAPSULE BY MOUTH EVERY* GABAPENTIN 300 MG CAPSULE TAKE 1 CAPSULE BY MOUTH AROUN* ERGOCALCIFEROL (VITAMIN D2) 5* Take 1 capsule by mouth once * FENOFIBRATE 160 MG TABLET Take 1 tablet by mouth once d* LEVOTHYROXINE 25 MCG TABLET Take 1 tablet by mouth once d* BLOOD SUGAR DIAGNOSTIC STRIPS Test blood sugar twice daily * LANCETS 30 GAUGE Test blood sugar twice daily * TRIAMCINOLONE ACETONIDE 0.1 %* Apply 1 application to affect* OMEPRAZOLE 40 MG CAPSULE,MARIAELENA* Take 1 capsule by mouth once * FLUTICASONE 50 MCG/ACTUATION * Use 2 Sprays in each nostril * LEVOTHYROXINE 200 MCG TABLET Take 1 tablet by mouth once d* CETIRIZINE 10 MG TABLET Take 1 tablet by mouth once d* LEVOTHYROXINE 25 MCG TABLET TAKE 1 TABLET BY MOUTH EVERY * COMPOUNDED PRESCRIPTION Knee High Compression Stockin* TRIAMCINOLONE ACETONIDE 0.1 %* 1 application by DENTAL route* COMPOUNDED PRESCRIPTION Disposable filter papers for * CICLOPIROX 0.77 % TOPICAL CRE* Apply 1 application to affect* COMPOUNDED PRESCRIPTION Ankle/foot night splint: DX: * ALBUTEROL SULFATE HFA 90 MCG/* Inhale 2 Puffs as instructed * OMEGA-3 FATTY ACIDS-VITAMIN E* Take 2 capsules by mouth once* SUMATRIPTAN 50 MG TABLET Take 50 mg by mouth as needed. CPAP CPAP 9 cmH2O, suitable mask, *Problem List As Of Date 05/28/2017 Noted Resolved Routine General Medical Examination at a [facility]*INVALID FOR*09/07/2013 Class: Chronic More... BENIGN HYPERTENSION [I10] INVALID FOR* More... MIXED HYPERLIPIDEMIA [E78.2] INVALID FOR* OBESITY NOS [E66.9] INVALID FOR* ESOPHAGEAL REFLUX [K21.9] INVALID FOR* FAM HX-CARDIOVAS DIS NEC [Z82.49] INVALID FOR* More... FAMILY HX GI MALIGNANCY [Z80.0] INVALID FOR* More... IRON DEFIC ANEMIA NOS [D50.9] INVALID FOR* More... ALLERGIC RHINITIS NOS [J30.9] INVALID FOR* More... Benign Neoplasm of Colon [D12.6] INVALID FOR* More... HIATAL HERNIA [K44.9] INVALID FOR* Hypothyroidism (acquired) [E03.9] INVALID FOR* ROSEANN (obstructive sleep apnea) [G47.33] INVALID FOR* More... RLS (restless legs syndrome) [G25.81] INVALID FOR* PTSD (post-traumatic stress disorder) [F43.10] INVALID FOR* Familial adenomatous polyposis [D12.6] INVALID FOR* Vitamin D deficiency [E55.9] INVALID FOR* Uncontrolled type 2 diabetes mellitus without c*INVALID FOR*11/13/2016 Obsessive-compulsive disorder [F42.9] INVALID FOR* FAP (familial adenomatous polyposis) [D12.6] INVALID FOR*12/08/2015 History of colonic polyps [Z86.010] INVALID FOR*12/08/2015 Gastroesophageal reflux disease [K21.9] INVALID FOR*12/08/2015 Controlled type 2 diabetes mellitus without com*INVALID FOR*Prescriptions ordered this encounter Disp Refills Start End SIMVASTATIN 20 MG TABLET 30 t* 0 05/28/2017 Cmt: Med-sync patient. If too soon, we will put new RX on hold for next cycle. Sig: TAKE 1 TABLET BY MOUTH AT BEDTIME METFORMIN 500 MG TABLET 50 t* 0 05/28/2017 Cmt: Med-sync patient. If too soon, we will put new RX on hold for next cycle. Sig: TAKE 1 TABLET TWICE DAILY WITH MEALSMedications Discontinued During This Encounter simvastatin (ZOCOR) 20 mg tablet 90 t* 0 02/28/2017 05/28/2017 Route: ORAL Sig: Take 1 tablet by mouth daily at bedtime. Disc: Reason for discontinue is not on file. metFORMIN (GLUCOPHAGE) 500 mg tablet 60 t* 12 05/21/2016 05/28/2017 Sig: TAKE 1 TABLET BY MOUTH TWICE DAILY WITH MEALS Disc: Reason for discontinue is not on file. Status:Closed by DIMPLE BARRIOS CMA on 05/28/17 OBSOLETE Observed: 05/21/2017 Status: COMPLETED Source: [place] 12:00 AM [facility] REPOSITORY Refill ([facility]) PAMELA LINDQUIST ([id number]) 1970 MDate Time Provider Wlomciqlli15/28/17 [facility] During your visit today, we recorded the following information about you:Afia Juarez LPN 05/21/2017 9:34 AM SignedLast office visit: 11/13/16Last refill date: 01/22/17 qty: 90 refill 0Next office visit: nothing scheduledLaurie Lainey Juarez LPNPatient has been identified by name and date of : YesRX INSTRUCTIONS:Pharmacy initiated this request. No need to notify patient.Afia Daly As of Date: 05/21/2017(No Known Allergies)Date Reviewed: 02/11/2017Reviewed by: Jess Rivas LPN - Fully AssessedReason for Visit: Refill Request [94]Order(s):FLUoxetine (PROZAC) 20 mg capsuleTAKE 1 CAPSULE BY MOUTH EVERY DAYDisp: 90 capsuleRfl: 5Prescriptions as of 05/21/2017 Sig: FLUOXETINE 20 MG CAPSULE TAKE 1 CAPSULE BY MOUTH EVERY* GABAPENTIN 300 MG CAPSULE TAKE 1 CAPSULE BY MOUTH AROUN* ERGOCALCIFEROL (VITAMIN D2) 5* Take 1 capsule by mouth once * SIMVASTATIN 20 MG TABLET Take 1 tablet by mouth daily * FENOFIBRATE 160 MG TABLET Take 1 tablet by mouth once d* LEVOTHYROXINE 25 MCG TABLET Take 1 tablet by mouth once d* BLOOD SUGAR DIAGNOSTIC STRIPS Test blood sugar twice daily * LANCETS 30 GAUGE Test blood sugar twice daily * TRIAMCINOLONE ACETONIDE 0.1 %* Apply 1 application to affect* OMEPRAZOLE 40 MG CAPSULE,MARIAELENA* Take 1 capsule by mouth once * FLUTICASONE 50 MCG/ACTUATION * Use 2 Sprays in each nostril * LEVOTHYROXINE 200 MCG TABLET Take 1 tablet by mouth once d* CETIRIZINE 10 MG TABLET Take 1 tablet by mouth once d* LEVOTHYROXINE 25 MCG TABLET TAKE 1 TABLET BY MOUTH EVERY * METFORMIN 500 MG TABLET TAKE 1 TABLET BY MOUTH TWICE * COMPOUNDED PRESCRIPTION Knee High Compression Stockin* TRIAMCINOLONE ACETONIDE 0.1 %* 1 application by DENTAL route* COMPOUNDED PRESCRIPTION Disposable filter papers for * CICLOPIROX 0.77 % TOPICAL CRE* Apply 1 application to affect* COMPOUNDED PRESCRIPTION Ankle/foot night splint: DX: * ALBUTEROL SULFATE HFA 90 MCG/* Inhale 2 Puffs as instructed * OMEGA-3 FATTY ACIDS-VITAMIN E* Take 2 capsules by mouth once* SUMATRIPTAN 50 MG TABLET Take 50 mg by mouth as needed. CPAP CPAP 9 cmH2O, suitable mask, *Problem List As Of Date 05/21/2017 Noted Resolved Routine General Medical Examination at a [facility]*INVALID FOR*09/07/2013 Class: Chronic More... BENIGN HYPERTENSION [I10] INVALID FOR* More... MIXED HYPERLIPIDEMIA [E78.2] INVALID FOR* OBESITY NOS [E66.9] INVALID FOR* ESOPHAGEAL REFLUX [K21.9] INVALID FOR* FAM HX-CARDIOVAS DIS NEC [Z82.49] INVALID FOR* More... FAMILY HX GI MALIGNANCY [Z80.0] INVALID FOR* More... IRON DEFIC ANEMIA NOS [D50.9] INVALID FOR* More... ALLERGIC RHINITIS NOS [J30.9] INVALID FOR* More... Benign Neoplasm of Colon [D12.6] INVALID FOR* More... HIATAL HERNIA [K44.9] INVALID FOR* Hypothyroidism (acquired) [E03.9] INVALID FOR* ROSEANN (obstructive sleep apnea) [G47.33] INVALID FOR* More... RLS (restless legs syndrome) [G25.81] INVALID FOR* PTSD (post-traumatic stress disorder) [F43.10] INVALID FOR* Familial adenomatous polyposis [D12.6] INVALID FOR* Vitamin D deficiency [E55.9] INVALID FOR* Uncontrolled type 2 diabetes mellitus without c*INVALID FOR*11/13/2016 Obsessive-compulsive disorder [F42.9] INVALID FOR* FAP (familial adenomatous polyposis) [D12.6] INVALID FOR*12/08/2015 History of colonic polyps [Z86.010] INVALID FOR*12/08/2015 Gastroesophageal reflux disease [K21.9] INVALID FOR*12/08/2015 Controlled type 2 diabetes mellitus without com*INVALID FOR*Prescriptions ordered this encounter Disp Refills Start End FLUOXETINE 20 MG CAPSULE 90 c* 5 05/21/2017 Sig: TAKE 1 CAPSULE BY MOUTH EVERY DAYMedications Discontinued During This Encounter FLUoxetine (PROZAC) 20 mg capsule 90 c* 0 01/22/2017 05/21/2017 Route: ORAL Sig: Take 1 capsule by mouth once daily. Disc: Reason for discontinue is not on file. Status:Closed by Yolanda DAVIS PA-C on 05/21/17 OBSOLETE Observed: 04/29/2017 Status: COMPLETED Source: [place] 12:00 AM [facility] REPOSITORY [facility] PAMELA LINDQUIST ([id number]) 1970 MDate Time Provider Pfijeglane88/6/17 LEOBARDO MAHMOOD During your visit today, we recorded the following information about you:Johanna Mcbride Ma 04/29/2017 11:55 AM SignedLast office visit: 11/13/16F/u scheduled: no follow up scheduledJohanna Mahmood MD 04/29/2017 2:01 PM SignedNeeds Adriel Barrios Cma 04/29/2017 3:05 PM SignedNo answer and voicemail is full will need to try again later.Stephie Schultz Ma 05/02/2017 2:21 PM SignedMychart message sent to Leann As of Date: 04/29/2017(No Known Allergies)Date Reviewed: 02/11/2017Reviewed by: Jess Rivas LPN - Fully AssessedReason for Visit: Refill Request [94]Order(s):gabapentin (NEURONTIN) 300 mg capsuleTAKE 1 CAPSULE BY MOUTH AROUND 5PM NEEDED FOR RLS, MAY INCREASE TO UP TO 3 (THREE) CAPSULES NEEDEDDisp: 90 capsuleRfl: 0Prescriptions as of 04/29/2017 Sig: GABAPENTIN 300 MG CAPSULE TAKE 1 CAPSULE BY MOUTH AROUN* ERGOCALCIFEROL (VITAMIN D2) 5* Take 1 capsule by mouth once * SIMVASTATIN 20 MG TABLET Take 1 tablet by mouth daily * FENOFIBRATE 160 MG TABLET Take 1 tablet by mouth once d* FLUOXETINE 20 MG CAPSULE Take 1 capsule by mouth once * LEVOTHYROXINE 25 MCG TABLET Take 1 tablet by mouth once d* BLOOD SUGAR DIAGNOSTIC STRIPS Test blood sugar twice daily * LANCETS 30 GAUGE Test blood sugar twice daily * TRIAMCINOLONE ACETONIDE 0.1 %* Apply 1 application to affect* OMEPRAZOLE 40 MG CAPSULE,MARIAELENA* Take 1 capsule by mouth once * FLUTICASONE 50 MCG/ACTUATION * Use 2 Sprays in each nostril * LEVOTHYROXINE 200 MCG TABLET Take 1 tablet by mouth once d* CETIRIZINE 10 MG TABLET Take 1 tablet by mouth once d* LEVOTHYROXINE 25 MCG TABLET TAKE 1 TABLET BY MOUTH EVERY * METFORMIN 500 MG TABLET TAKE 1 TABLET BY MOUTH TWICE * COMPOUNDED PRESCRIPTION Knee High Compression Stockin* TRIAMCINOLONE ACETONIDE 0.1 %* 1 application by DENTAL route* COMPOUNDED PRESCRIPTION Disposable filter papers for * CICLOPIROX 0.77 % TOPICAL CRE* Apply 1 application to affect* COMPOUNDED PRESCRIPTION Ankle/foot night splint: DX: * ALBUTEROL SULFATE HFA 90 MCG/* Inhale 2 Puffs as instructed * OMEGA-3 FATTY ACIDS-VITAMIN E* Take 2 capsules by mouth once* SUMATRIPTAN 50 MG TABLET Take 50 mg by mouth as needed. CPAP CPAP 9 cmH2O, suitable mask, *Problem List As Of Date 04/29/2017 Noted Resolved Routine General Medical Examination at a [facility]*INVALID FOR*09/07/2013 Class: Chronic More... BENIGN HYPERTENSION [I10] INVALID FOR* More... MIXED HYPERLIPIDEMIA [E78.2] INVALID FOR* OBESITY NOS [E66.9] INVALID FOR* ESOPHAGEAL REFLUX [K21.9] INVALID FOR* FAM HX-CARDIOVAS DIS NEC [Z82.49] INVALID FOR* More... FAMILY HX GI MALIGNANCY [Z80.0] INVALID FOR* More... IRON DEFIC ANEMIA NOS [D50.9] INVALID FOR* More... ALLERGIC RHINITIS NOS [J30.9] INVALID FOR* More... Benign Neoplasm of Colon [D12.6] INVALID FOR* More... HIATAL HERNIA [K44.9] INVALID FOR* Hypothyroidism (acquired) [E03.9] INVALID FOR* ROSEANN (obstructive sleep apnea) [G47.33] INVALID FOR* More... RLS (restless legs syndrome) [G25.81] INVALID FOR* PTSD (post-traumatic stress disorder) [F43.10] INVALID FOR* Familial adenomatous polyposis [D12.6] INVALID FOR* Vitamin D deficiency [E55.9] INVALID FOR* Uncontrolled type 2 diabetes mellitus without c*INVALID FOR*11/13/2016 Obsessive-compulsive disorder [F42.9] INVALID FOR* FAP (familial adenomatous polyposis) [D12.6] INVALID FOR*12/08/2015 History of colonic polyps [Z86.010] INVALID FOR*12/08/2015 Gastroesophageal reflux disease [K21.9] INVALID FOR*12/08/2015 Controlled type 2 diabetes mellitus without com*INVALID FOR*Prescriptions ordered this encounter Disp Refills Start End GABAPENTIN 300 MG CAPSULE 90 c* 0 04/29/2017 Cmt: Med- sync patient. If too soon, we will put new RX on hold for next cycle. Sig: TAKE 1 CAPSULE BY MOUTH AROUND 5PM NEEDED FOR RLS, MAY INCREASE TO UP TO 3 (THREE) CAPSULES NEEDEDMedications Discontinued During This Encounter gabapentin (NEURONTIN) 300 mg capsule 90 c* 2 12/06/2016 04/29/2017 Cmt: Med-sync patient. If too soon, we will put new RX on hold for next cycle. Sig: TAKE 1 CAPSULE BY MOUTH AROUND 5PM NEEDED FOR RLS, MAY INCREASE TO UP TO 3 (THREE) CAPSULES NEEDED Disc: Reason for discontinue is not on file. Status:Closed by STEPHIE SCHULTZ MA on 05/02/17 ALLERGIES ALLERGIES DATE TYPE / CODE NAME / CODE REACTION SEVERITY SOURCE 04/14/2018 Drug No Known Unknown [facility] Allergy/416 Allergies/C18018 Hospital [id number](SNOM 0388(RXNORM) Repository ED CT) Drug NO KNOWN [facility] Class/46591 ALLERGIES Main [place] 1003(SNOMED Repository CT) ENCOUNTERS ENCOUNTERS ADMIT/DISCHARGE ACCOUNT ADMITTING ENCOUNTER LOCATION SOURCE NUMBER CLASS 04/14/2018 [id number] [facility] ing:ACRoom: Repository RA52Orx: 1 01/30/2018/01/31/20 [id number] Ambulatory [place] 18 [facility] [place] Repository 01/10/2018/01/14/20 [id number] Ambulatory [place] 18 [facility] [place] Repository 01/03/2018/01/04/20 [id number] Ambulatory [place] [facility] [place] Repository 12/24/2017/12/25/19 [id number] Ambulatory [place] [facility] [place] Repository 11/12/2017/11/13/19 [id number] Ambulatory [place] [facility] [place] Repository 10/03/2017/10/04/19 [id number] Ambulatory [place] [facility] [place] Repository 10/02/2017/10/03/19 [id number] Ambulatory [place] [facility] [place] Repository 08/26/2017/08/27/19 [id number] Ambulatory [place] [facility] [place] Repository 08/23/2017/08/24/19 [id number] Ambulatory [place] [facility] [place] Repository 07/29/2017/07/29/19 [id number] Ambulatory [place] [facility] [place] Repository 07/29/2017/07/29/19 [id number] Ambulatory [place] [facility] [place] Repository 06/20/2017/06/20/20 [id number] Ambulatory [place] [facility] [place] Repository 06/20/2017/06/26/19 [id number] Ambulatory [place] 18 [facility] [place] Repository PAYERS PAYERS ENCOUNTER GUARANTOR PAYER SUBSCRIBER SOURCE 04/14/2018 PAMELA Nicholson Primary PAMELA [place] [id number] Insurance:RICARDODELIO TOVAR: [facility] LAVELLE pickard Number: [id number] [id number] Repository 84663Xhd: (330) Date:2018-01-30P O [phone] () [address]ATTN: [place] [address]WW: 04/14/2018 Secondary NOT GIVENUNK [place] Insurance:SELF PAY Community [facility]: Effective Repository Date:2018-01-30
--- NOTE | 2018-04-14 12:45 | COLBX_PTH ---
PATIENT: LEONARDO CHACKO LOC: EN U#:[id number] AGE/SX: 48/M ROOM: RE04/14/[address]: Dr. Antonio Artis MD : 1970 BED: DIS: 04/14/2018 SPEC #: [id number] RECD: 04/14/18 22:16 STATUS: MOSES SANJEEV #: [id number] RAFY: 04/14/18 12:[address]: Antonio Artis DEPT: SURGICAL PATHOLOGY RECD BY: Antonio Venegas ENTERED: 04/15/18 11:41 SP TYPE: COLON BX OTHR DR: Dr. Malvin Mahmood MD Tissues: A - Transverse colon B - Descending colon C - Sigmoid colon biopsy D - COLON BIOPSY Procedures: Surgery Specimen Level IV HEADER OPERATION: [place] [place] DIAGNOSIS: Reflux, history of polyps TISSUE SUBMITTED: A - Transverse colon polyp biopsy, B - Descending colon polyp biopsy, C - Sigmoid colon polyp biopsy, D - Polyps at 20 cm MICROSCOPIC DIAGNOSIS A. Transverse colon polyp, biopsy: A fragment of colonic mucosa, no pathologic diagnosis with cautery artifacts. Negative for adenomatous changes. B. Descending colon polyp, biopsy: A fragment of colonic mucosa, no pathologic diagnosis with cautery artifacts. Negative for adenomatous changes. C. Sigmoid colon polyp, biopsy: Fragments of tubular adenoma. D. Polyp at 20 cm, biopsy: Fragments of tubular adenoma. Fragments of fecal material. SJ:melita 04/16/18 MICROSCOPIC DESCRIPTION Slides are reviewed. GROSS DESCRIPTION A - Received in fixative is one container labeled with the patient's name and designated transverse colon polyp. The specimen consists of one irregular fragment of light bustamante soft tissue that measures 0.2 x 0.1 x 0.1 cm. The specimen is totally submitted in one cassette. B - Received in fixative is one container labeled with the patient's name and designated descending colon polyp biopsy. The specimen consists of one irregular fragment of light bustamante soft tissue that measures 0.2 x 0.2 x 0.1 cm. The specimen is totally submitted in one cassette. C - Received in fixative is one container labeled with the patient's name and designated sigmoid colon polyp biopsy. The specimen consists of multiple irregular fragments of light bustamante soft tissue that in aggregate measure 1 x 0.3 x 0.1 cm. The specimen is totally submitted in one cassette. D - Received in fixative is one container labeled with the patient's name and designated polyp at 20 cm. The specimen consists of multiple irregular fragments of bustamante soft tissue mixed with fecal material that in aggregate measure 1.5 x 0.5 x 0.1 cm. The specimen is totally submitted in one cassette. / ZAFAR:melita 04/15/18 TC:1 CPT: 57040 x4
--- NOTE | 2018-04-14 15:27 | OP.ENDO_ITS ---
Patient Name: Pamela Lindquist Procedure Date: 04/14/2018 12:42 PM Date of : 1970 Age: 48 Procedure: Upper GI endoscopy Indications: Familial Adenomatous Polyposis Providers: Antonio Artis MD Medicines: Monitored Anesthesia Care Patient Profile: This is a 48 year old male. Refer to note in patient chart for documentation of history and physical. Complications: No immediate complications. Procedure: Pre-Anesthesia Assessment: - Prior to the procedure, a History and Physical was performed, and patient medications and allergies were reviewed. The patient is competent. The risks and benefits of the procedure and the sedation options and risks were discussed with the patient. All questions were answered and informed consent was obtained. Patient identification and proposed procedure were verified by the physician and the nurse in the procedure room. Mental Status Examination: alert and oriented. Airway Examination: normal oropharyngeal airway and neck mobility. Respiratory Examination: clear to auscultation. CV Examination: normal. Prophylactic Antibiotics: The patient does not require prophylactic antibiotics. Prior Anticoagulants: The patient has taken no previous anticoagulant or antiplatelet agents. ASA Grade Assessment: III - A patient with severe systemic disease. After reviewing the risks and benefits, the patient was deemed in satisfactory condition to undergo the procedure. The anesthesia plan was to use monitored anesthesia care (MAC). Immediately prior to administration of medications, the patient was re-assessed for adequacy to receive sedatives. The heart rate, respiratory rate, oxygen saturations, blood pressure, adequacy of pulmonary ventilation, and response to care were monitored throughout the procedure. The physical status of the patient was re-assessed after the procedure. After obtaining informed consent, the endoscope was passed under direct vision. Throughout the procedure, the patient's blood pressure, pulse, and oxygen saturations were monitored continuously. The gastroscope was introduced through the mouth, and advanced to the jejunum. The upper GI endoscopy was accomplished without difficulty. The patient tolerated the procedure well. Scope In: 2:47:39 PM Scope Out: 2:49:35 PM Total Procedure Duration Time 0 hours 1 minute 56 seconds Findings: The examined jejunum was normal. The in the duodenum was normal. The entire examined stomach was normal. The examined esophagus was normal. Impression: - Normal examined jejunum. - Normal. - Normal stomach. - Normal esophagus. - No specimens collected. Recommendation: - Discharge patient to home. - Resume previous diet. - Continue present medications. Procedure Code(s): --- Professional --- 05380, Esophagogastroduodenoscopy, flexible, transoral; diagnostic, including collection of specimen(s) by brushing or washing, when performed (separate procedure) CPT copyright 2017 [employer]. All rights reserved. The codes documented in this report are preliminary and upon braille coder review may be revised to meet current compliance requirements. Antonio Artis MD 04/14/2018 3:27:18 PM This report has been signed electronically. Number of Addenda: 0 Note Initiated On: 04/14/2018 12:42 PM
--- NOTE | 2018-04-14 15:30 | OP.ENDO_ITS ---
Patient Name: Pamela Lindquist Procedure Date: 04/14/2018 2:50 PM Date of : 1970 Age: 48 Procedure: Colonoscopy Indications: High risk colon cancer surveillance: Personal history of multiple (3 or more) adenomas Providers: Antonio Artis MD Medicines: Monitored Anesthesia Care Patient Profile: This is a 48 year old male. Refer to note in patient chart for documentation of history and physical. Last Colonoscopy: Complications: No immediate complications. Procedure: Pre-Anesthesia Assessment: - Prior to the procedure, a History and Physical was performed, and patient medications and allergies were reviewed. The patient is competent. The risks and benefits of the procedure and the sedation options and risks were discussed with the patient. All questions were answered and informed consent was obtained. Patient identification and proposed procedure were verified by the physician and the nurse in the procedure room. Mental Status Examination: alert and oriented. Airway Examination: normal oropharyngeal airway and neck mobility. Respiratory Examination: clear to auscultation. CV Examination: normal. Prophylactic Antibiotics: The patient does not require prophylactic antibiotics. Prior Anticoagulants: The patient has taken no previous anticoagulant or antiplatelet agents. ASA Grade Assessment: III - A patient with severe systemic disease. After reviewing the risks and benefits, the patient was deemed in satisfactory condition to undergo the procedure. The anesthesia plan was to use monitored anesthesia care (MAC). Immediately prior to administration of medications, the patient was re-assessed for adequacy to receive sedatives. The heart rate, respiratory rate, oxygen saturations, blood pressure, adequacy of pulmonary ventilation, and response to care were monitored throughout the procedure. The physical status of the patient was re-assessed after the procedure. After I obtained informed consent, the scope was passed under direct vision. Throughout the procedure, the patient's blood pressure, pulse, and oxygen saturations were monitored continuously. The pediatric colonoscope was introduced through the anus and advanced to the cecum, identified by the appendiceal orifice, ileocecal valve and palpation. The colonoscopy was performed without difficulty. The patient tolerated the procedure well. The quality of the bowel preparation was good. Scope In: 2:52:04 PM Scope Withdrawal Time 0 hours 19 minutes 14 seconds Scope Out: 3:14:19 PM Total Procedure Duration Time 0 hours 22 minutes 15 seconds Findings: The perianal and digital rectal examinations were normal. Five sessile polyps were found in the sigmoid colon, descending colon, splenic flexure and transverse colon. The polyps were small in size. These polyps were removed with a hot biopsy forceps. Resection and retrieval were complete. A 7 mm polyp was found in the sigmoid colon. The polyp was sessile. The polyp was removed with a hot snare. Resection and retrieval were complete. The exam was otherwise without abnormality. The retroflexed view of the distal rectum and anal verge was normal and showed no anal or rectal abnormalities. Impression: - Five small polyps in the sigmoid colon, in the descending colon, at the splenic flexure and in the transverse colon, removed with a hot biopsy forceps. Resected and retrieved. - One 7 mm polyp in the sigmoid colon, removed with a hot snare. Resected and retrieved. - The examination was otherwise normal. - The distal rectum and anal verge are normal on retroflexion view. Recommendation: - Discharge patient to home. - Resume previous diet. - Continue present medications. - Await pathology results. - Return to physician product development assistant in 1 week. - Repeat colonoscopy in 2 years for surveillance of multiple polyps. Procedure Code(s): --- Professional --- 54839, Colonoscopy, flexible; with removal of tumor(s), polyp(s), or other lesion(s) by snare technique 77381, 59, Colonoscopy, flexible; with removal of tumor(s), polyp(s), or other lesion(s) by hot biopsy forceps CPT copyright 2017 [employer]. All rights reserved. The codes documented in this report are preliminary and upon engineer station mainline review may be revised to meet current compliance requirements. Antonio Artis MD 04/14/2018 3:30:25 PM This report has been signed electronically. Number of Addenda: 0 Note Initiated On: 04/14/2018 2:50 PM
== END 2018-04-14 16:17 | disposition home or self-care (01) ==
LOC: EN 11:44 → AC 11:47
PROVIDERS: Family Provider Family Medicine; PCP Family Medicine; Referring Provider Surgery; Visit Provider Surgery
PROC: 0DJD8ZZ Inspection of Lower Intestinal Tract, Via Natural or Artificial Opening Endoscopic (ICD-10-PCS; CPT 45378; principal; 2018-04-14 12:40)
DX: D12.5 Benign neoplasm of sigmoid colon (principal); K21.9 Gastro-esophageal reflux disease without esophagitis; K42.9 Umbilical hernia without obstruction or gangrene; E78.00 Pure hypercholesterolemia, unspecified; E11.9 Type 2 diabetes mellitus without complications; I10 Essential (primary) hypertension; E03.9 Hypothyroidism, unspecified; F41.9 Anxiety disorder, unspecified; F31.9 Bipolar disorder, unspecified; G25.81 Restless legs syndrome; Z87.891 Personal history of nicotine dependence; Z79.84 Long term (current) use of oral hypoglycemic drugs; Z79.51 Long term (current) use of inhaled steroids; Z79.899 Other long term (current) drug therapy
CPT/HCPCS: 43235; 45384; 82962; 88305; J7120

== ENCOUNTER 2019-07-29 15:15 | Emergency (ER) | payer MEDICAID, SELFPAY ==
[2019-07-29 15:16] VITALS: BP 151/86; PULSE 76; RESP 16; TEMP 36.1; O2SAT 96; BMI 36.1
--- NOTE | 2019-07-29 15:45 | RAD_ITS ---
STUDY: X-RAY - MANDIBLE (COMPLETE) REASON FOR EXAM: Male, 49 years old. Patient had a fall out of recliner a couple weeks ago TECHNIQUE: 4 view(s) of the mandible were obtained. COMPARISON: None. FINDINGS: Normal mandible. Normal visualized right temporomandibular joint. Normal visualized left temporomandibular joint. The remaining visualized osseous structures are normal. The soft tissue structures are unremarkable. RAD/Mandible Min 4 Views IMPRESSION: Normal x-ray examination of the mandible. Electronically Signed: Prosper Barton, at 16:01 EST , Service support ,
--- NOTE | 2019-07-29 16:18 | ED.VISSUMM ---
- ER Visit Summary Date of Service: 07/29/19 Chief Complaint: Head injury and jaw pain History of Present Illness: The patient is a 49 M who presents with head injury and jaw pain that is been constant for the past 2 to 3 weeks. Patient states he was sleeping in a recliner when the recliner tipped over and fell. Patient hit his head at that time. Patient states he has had pain in his right temporomandibular area since the fall. Patient describes pain as aching. Patient states the pain is worse with chewing. Patient denies any paresthesias or weakness. Patient denies any nausea or vomiting. Patient denies any visual changes. Physical Examination: Vital signs are stable. Patient is afebrile. Patient is in no acute distress. Cranial nerves II through XII are intact. There are no focal motor or sensory deficits noted. There is tenderness over the right temporomandibular joint. There is no edema or ecchymosis. There is no bony crepitance or step-off. There is good range of motion of the mandible. There is no deformity. Oropharynx is clear. Teeth are intact. Is supple. Trachea is midline. No JVD. Heart was regular rate and rhythm. Lungs are clear and equal bilaterally. Test Results: X-rays of the mandible were obtained. There is no acute fracture. These were interpreted by the radiologist and reviewed by myself. Emergency Department Course and Treatment: Patient was instructed to use ice to the area. Patient was given a prescription for ibuprofen. Patient was instructed to follow-up with his primary care physician in 5 to 7 days. Patient understood and was agreeable with the plan. All questions were answered. Disposition: Discharge home Impression: Right TMJ sprain This note was generated with [employer] dictation software. It may contain incorrect words, spelling, and punctuation that were not noted in review of the chart prior to signing ED Disposition - Plan for ED Patient: Disposition: Home or Assisted Living Diagnosis: Sprain of right temporomandibular joint Prescriptions: Ibuprofen 800 mg PO Q8H PRN PRN #20 tab PRN Reason: Pain Score 1-10/10 Prescription Printed Referrals: Malvin Mahmood [Primary Care Provider] - 5-7 Days
[2019-07-29 16:53] VITALS: BP 143/70; PULSE 70; RESP 14; O2SAT 98
== END 2019-07-29 16:55 | disposition home or self-care (01) ==
PROVIDERS: Emergency Provider Emergency Medicine
DX: S03.41XA Sprain of jaw, right side, initial encounter (principal); K21.9 Gastro-esophageal reflux disease without esophagitis; E11.9 Type 2 diabetes mellitus without complications; I10 Essential (primary) hypertension; W07.XXXA Fall from chair, initial encounter; Y93.84 Activity, sleeping; Y92.008 Other place in unspecified non-institutional (private) residence as the place of occurrence of the external cause; Y99.8 Other external cause status
CPT/HCPCS: 70110; 99283

== ENCOUNTER 2021-12-08 07:37 | Outpatient (RCR) | payer MEDICAID, SELFPAY ==
[2021-12-08 08:25] VITALS: BP 127/89; PULSE 78; TEMP 36.3
--- NOTE | 2021-12-08 10:06 | PCM.WC.HP ---
History of Present Illness Date of Service: 12/08/21 Chief Complaint: BLE cellulitis and edema History of Wound: The patient is a pleasant 51-year-old male who presents to the wound healing center today (12/08/2021) for evaluation of bilateral lower extremity cellulitis and edema. He denies any history of DVT. He was referred to the [facility] by his railroad yard worker, Dr. Gabriel. He has a past medical history significant for hypertension, hypothyroidism, type 2 diabetes mellitus, hyperlipidemia, and environmental allergies. He denies any known drug allergies, though he states that the last time he took Augmentin it caused muscle soreness of his bilateral lower extremities. He does not have any open wounds, though he has developed wounds of his lower extremities in the past which have healed without aggressive management. He states that for the past 3 years or so he has been struggling with recurrent cellulitis of the lower extremities. He states he has been on antibiotics for cellulitis approximately every 3 months. His last course of antibiotics was in early October 2021, at which time he was prescribed Augmentin. He states his cellulitis first presented in the left lower extremity, though more recently it has been primarily affecting the left lower extremity. He has had bilateral lower extremity edema for at least 6 years, and has been using compression stockings for the past 6 years. He states he wears these most of the time, but often does not put them on until later in the day after showering. He sleeps in a recliner at night. He is not often on his feet during the day. He does report that he sits frequently throughout the day without his feet elevated. He wears a brace to his left lower leg, which he reports is to keep him from shuffling his gait. The patient denies fever, chills, general malaise, or poor appetite. The patient has not had increased redness, swelling, or purulent/malodorous drainage from affected area. Arterial studies from 11/08/2021 revealed normal arterial flow in the bilateral lower extremities. [facility] Medical History (Updated 12/08/21 @ 10:28 by Brittany Andrade NP, REGISTERED NURSE MATERNAL CHILD-C) Bilateral lower extremity edema Cellulitis of leg, right Essential hypertension Hyperlipidemia Hypothyroidism Type 2 diabetes mellitus Home Medications Cetirizine Hcl [Zyrtec] 10 mg PO DAILY 02/03/14 [History Last Taken Unknown] Campus-3 2,000 mg PO DAILY 07/27/13 [History Last Taken 04/10/18] fenofibrate 160 mg tablet (Lofibra) 160 mg PO DAILY 07/27/13 [History Last Taken Unknown] levothyroxine 100 mcg tablet 200 mcg PO DAILY 07/27/13 [History Last Taken 04/14/18] levothyroxine 25 mcg tablet (Levoxyl) 25 mcg PO DAILY 07/27/13 [History Last Taken Unknown] omeprazole 20 mg capsule,delayed release 20 mg PO QHS 07/27/13 [History Last Taken Unknown] L.acidoph, paracasei,B. lactis 10 billion cell capsule 1 ea PO DAILY 01/30/17 [History Last Taken Unknown] ergocalciferol (vitamin D2) 1,250 mcg (50,000 unit) capsule (Vitamin D2) 50,000 unit PO FR 01/30/17 [History Last Taken Unknown] fluoxetine 20 mg capsule 20 mg PO DAILY 01/30/17 [History Last Taken Unknown] fluticasone propionate 50 mcg/actuation nasal spray,suspension 2 spray DAILY 01/30/17 [History Last Taken Unknown] gabapentin 300 mg capsule (Neurontin) 300 mg PO QHS 01/30/17 [History Last Taken Unknown] metformin 500 mg tablet 500 mg PO BID 01/30/17 [History Last Taken Unknown] multivitamin (Multiple Vitamins) 1 ea PO DAILY 01/30/17 [History Last Taken 04/09/18] simvastatin 20 mg tablet 20 mg PO QHS 01/30/17 [History Last Taken Unknown] glipizide 5 mg tablet, extended release 24 hr (Glucotrol XL) 5 mg PO DAILY 04/11/18 [History Last Taken Unknown] lisinopril 5 mg tablet 5 mg PO QHS 04/11/18 [History Last Taken Unknown] ibuprofen 800 mg tablet 800 mg PO Q8H PRN PRN Pain Score 1-10/10 #20 tabs 07/29/19 [Rx Last Taken Unknown] azelastine 137 mcg (0.1 %) nasal spray aerosol 2 spray intranasal BID 12/08/21 [History Last Taken Unknown] ciclopirox 0.77 % topical cream 1 applic topical BID 12/08/21 [History Last Taken Unknown] doxycycline monohydrate 100 mg capsule 100 mg PO BID 10 days #20 caps 12/08/21 [Rx Last Taken Unknown] empagliflozin 10 mg tablet (Jardiance) 10 mg PO DAILY 12/08/21 [History Last Taken Unknown] epinephrine 1 mg/mL injection kit ([employer]) 1 mg IM Q20M PRN Allergic Reaction 12/08/21 [History Last Taken Unknown] ferrous sulfate 325 mg (65 mg iron) capsule,extended release 325 mg PO 12/08/21 [History Last Taken Unknown] Allergy/AdvReac Type Severity Reaction Status Date / Time No Known Allergies Allergy Verified 02/05/19 13:27 Social History (System 02/05/19 @ 13:27 by Julieta Cooper) Smoking Status: Never smoker ROS Constitutional Constitutional: Denies chills, fever(s) or night sweats Cardiovascular Cardiovascular: Reports edema; Denies chest pain or palpitations Respiratory/Chest Respiratory/Chest: Reports shortness of breath with exertion; Denies cough or shortness of breath at rest Gastrointestinal Gastrointestinal: Denies diarrhea, nausea or vomiting Musculoskeletal Musculoskeletal: Denies abnormal gait, extremity pain, muscle weakness, numbness or tingling Integumentary Integumentary: Reports rash; Denies wounds Neurologic Neurologic: Reports abnormal gait and weakness; Denies abnormal speech Hematologic/Lymphatic Hematologic/Lymphatic: Denies easy bleeding or easy bruising Vital Signs Vital Signs Vital Signs: 12/08/21 08:25 Temperature 97.4 F L Temperature Source Temporal Pulse Rate 78 Blood Pressure 127/89 H Blood Pressure Mean 101 Blood Pressure Source Monitor Blood Pressure Position Sitting Blood Pressure Location Right Arm Physical Exam Const alert, no apparent distress and healthy appearing General Appearance: cooperative, comfortable and well kempt HEENT Head and Scalp: normocephalic and atraumatic Eyes EOMs intact bilaterally Neck supple and no JVD Resp normal respiratory effort, normal air movement and no use of accessory muscles Auscultation: clear to auscultation bilaterally; Negative for crackles, rales, rhonchi or wheezes Cardio regular rate and regular rhythm Peripheral Pulses: dorsalis pedis pulses present bilateral 2+ GI normal to inspection, nondistended, normoactive bowel sounds Extremity normal capillary refill, no joint enlargement and no calf tenderness General Extremity: edema bilateral lower extremity Details: mild; Negative for clubbing or cyanosis Peripheral Pulses: Yes dorsalis pedis pulses present bilateral 2+ Skin Skin Narrative: Erythema of bilateral lower extremities. Right lower extremity is warm to touch along the medial aspect. No significant tenderness to palpation. No drainage. Scarring present from previous wounds of the RLE. Wounds: Negative for wounds noted Neuro oriented x3 and moves all extremities Psych mental status grossly normal, cooperative and affect normal Debridement Note Debridement Note No debridement was completed: No debridement was completed today Post-Debridement Measurements and Additional Note: Post-Debridement Measurements/Treatment - Nurse 1 - General Ulcer Assessment Start: 12/08/21 08:25 Freq: Status: Active Protocol: AYESHA Activity Type Activity Date Activity User E-sign Co-sign Detail Recorded Client Recorded Date Recorded By Document 12/08/21 08:25 KR [id number] 12/08/21 08:28 CINDY 12/08/21 08:25 - Today's Visit Information Type of service Initial Visit Arrival Mode Ambulatory Patient Identification Verified (Name & Yes ) Vital Signs Temperature (97.8 F-99.1 F) 97.4 F L Temperature Source Temporal Pulse Rate (60-100) 78 Pulse Location Monitor Blood Pressure (90/60-120/80) 127/89 H Blood Pressure Mean 101 Source Monitor Position Sitting Blood Pressure Location Right Arm History Since Last Visit- (Skip if this is Patient's initial visit) Have you changed medications since your No last visit? Any new allergies or adverse reactions No Had a fall/change in ADL's that may No increase risk of falls Signs or symptoms of abuse and/or No neglect since last visit Have you been in the hospital since your No last visit? Has dressing in place as prescribed No Has compression in place as prescribed N/A Has offloadiing in place as prescribed N/A Experienced any changes in pain level or No management Left Footwear Regular Shoe Right Footwear Regular Shoe Pain Scale: 0-10 Numeric Is Patient Pain Free? Yes [facility] Nurse 1 - General Ulcer Measurement Start: 12/08/21 08:25 Freq: Status: Active Protocol: Activity Type Activity Date Activity User E-sign Co-sign Detail Recorded Client Recorded Date Recorded By Document 12/08/21 08:25 KR [id number] 12/08/21 08:28 CINDY 12/08/21 08:25 Wound Center Nurse 1 Right Calf (cm) 44 Right Ankle (cm) 25.6 Left Calf (cm) 43 Left Ankle (cm) 25 WC - Nurse 3 - General Ulcer D/C NN Start: 12/08/21 08:25 Freq: Status: Active Protocol: Activity Type Activity Date Activity User E-sign Co-sign Detail Recorded Client Recorded Date Recorded By Document 12/08/21 09:25 CINDY [id number] 12/08/21 09:26 CINDY 12/08/21 09:25 Wound Care Nurse 3 Right -Tubular Bandage Double Layer -Size of Tubigrip Used Size E -Size E ($) 2 Left -Tubular Bandage Double Layer -Size of Tubigrip Used Size E -Size E ($) 2 Pain Scale: 0-10 Numeric Is Patient Pain Free? Yes WC - Visit Discharge Discharge Condition Stable Ambulatory Status Ambulatory Transportation Private Auto Charges/Coding Visit Charges Office Visits / Consults: 54517 OV L4 Est Assessment/Plan Assessment/Plan (1) Bilateral lower extremity edema: CODE(S): R60.0 - Localized edema (2) Cellulitis of leg, right: CODE(S): L03.115 - Cellulitis of right lower limb PLAN: Plan The patient does not have any open wounds today. He has edema of the bilateral lower extremities, and concern for cellulitis of the right lower extremity. At home instructions: Wash legs daily with antibacterial soap and water, rinse and dry thoroughly. Use OTC Aquaphor or Eucerin lotion (unscented) for moisturization of the bilateral lower extremities. Compression: Single-layer Tubigrip's (high-pressure) applied today, as the patient is not currently wearing compression. He was instructed to use compression daily. He has several pairs of compression stockings at home, some of which are several years old, and a prescription for new compression stockings was given today (20-30 mmHg). He was instructed to don his compression stockings first thing in the morning, before standing. He may remove these to shower, and may remove them to sleep at night, but otherwise should be wearing his compression stockings at all times. Off-loading: Avoid prolonged standing and/or dangling of legs. When seated, feet should be elevated at chest level. Frequent, short periods of ambulation are encouraged. Diet: Patient educated on the importance of protein intake, and optimizing management of diabetes and preventing cellulitis and occurrence of wounds. Labs/cultures/imaging: Vascular studies reviewed as annotated above. Follow-up: Return to clinic in 3 weeks for re-evaluation. Return sooner or report to the emergency room should symptoms worsen, or new symptoms arise. Note: [employer] speech recognition trains service conductor software was used to create portions of this document. Sound-alike and misspelled words, as well as other trains service conductor errors may be contained in the documentation. 35 minutes were spent by me on today's visit. This time includes coordinating care, reviewing labs/records/history, interpretation of test results, and counseling patient/family. This also includes time spent with the patient for exam, treatment plan, and education as well as documenting clinical information in the electronic health record.
== END 2021-12-21 23:59 | disposition home or self-care (01) ==
LOC: WC 07:37
PROVIDERS: Visit Provider Nurse Practitioner Family
DX: L03.115 Cellulitis of right lower limb (principal); E11.9 Type 2 diabetes mellitus without complications; Z79.84 Long term (current) use of oral hypoglycemic drugs; R60.0 Localized edema; I10 Essential (primary) hypertension; E78.5 Hyperlipidemia, unspecified; E03.9 Hypothyroidism, unspecified
CPT/HCPCS: 99213; G0463

== ENCOUNTER 2022-01-05 09:41 | Outpatient (RCR) | payer MEDICAID, SELFPAY ==
[2021-12-22 00:49] VITALS: BP 127/89; PULSE 78; TEMP 36.3
--- NOTE | 2022-01-05 09:42 | PN.PCM_ITS ---
History of Present Illness Date of Service: 01/05/22 Chief Complaint: BLE cellulitis and edema History of Wound: The patient is a pleasant 51-year-old male who presents to the wound healing center today (12/08/2021) for evaluation of bilateral lower extremity cellulitis and edema. He denies any history of DVT. He was referred to the [facility] by his casey saw operator, Dr. Gabriel. He has a past medical history significant for hypertension, hypothyroidism, type 2 diabetes mellitus, hyperlipidemia, and environmental allergies. He denies any known drug allergies, though he states that the last time he took Augmentin it caused muscle soreness of his bilateral lower extremities. He does not have any open wounds, though he has developed wounds of his lower extremities in the past which have healed without aggressive management. He states that for the past 3 years or so he has been struggling with recurrent cellulitis of the lower extremities. He states he has been on antibiotics for cellulitis approximately every 3 months. His last course of antibiotics was in early October 2021, at which time he was prescribed Augmentin. He states his cellulitis first presented in the left lower extremity, though more recently it has been primarily affecting the left lower extremity. He has had bilateral lower extremity edema for at least 6 years, and has been using compression stockings for the past 6 years. He states he wears these most of the time, but often does not put them on until later in the day after showering. He sleeps in a recliner at night. He is not often on his feet during the day. He does report that he sits frequently throughout the day without his feet elevated. He wears a brace to his left lower leg, which he reports is to keep him from shuffling his gait. The patient denies fever, chills, general malaise, or poor appetite. The patient has not had increased redness, swelling, or purulent/malodorous drainage from affected area. Arterial studies from 11/08/2021 revealed normal arterial flow in the bilateral lower extremities. Progress of Wound: The patient completed a 10 day course of doxycycline and had improvement of his right lower extremity rash and warmth. He notes that 1-2 days after starting doxycycline he developed an open, draining lesion of the right lower extremity which spontaneously healed within a few days. He has been compliant with the use of compression. He states his insurance will not yet cover new compression, but he is eligible to receive new compression in April. He has been using Tubigrips and his other compression stockings on a daily basis. The patient denies fever, chills, general malaise, or poor appetite. The patient has not had increased redness or swelling of his lower extremities. Objective Data Objective Data Vital Signs: Vital Signs Temp Pulse BP 97.4 F L 78 127/89 H 12/22/21 00:49 12/22/21 00:49 12/22/21 00:49 Charges/Coding Visit Charges Office Visits / Consults: 75607 OV L3 Est Physical Exam Const alert, no apparent distress and healthy appearing General Appearance: cooperative, comfortable and well kempt HEENT Head and Scalp: normocephalic and atraumatic Eyes EOMs intact bilaterally Resp normal respiratory effort, normal air movement and no use of accessory muscles Cardio regular rate Peripheral Pulses: dorsalis pedis pulses present bilateral 2+ GI Negative for non-distended Extremity normal capillary refill, no joint enlargement and no calf tenderness General Extremity: edema bilateral lower extremity Details: mild; Negative for clubbing or cyanosis Peripheral Pulses: Yes dorsalis pedis pulses present bilateral 2+ Skin Skin Narrative: No warmth or tenderness to palpation of bilateral lower extremities. No drainage or open ulcers of the legs. Scarring present from previous wounds of the RLE. Rashes: rashes noted bilateral lower extremities, distally Narrative: venous stasis dermatitis and mild hemosiderin staining hyperpigmented dry and shiny smooth nontender Wounds: Negative for wounds noted Neuro oriented x3 and moves all extremities Psych mental status grossly normal, cooperative and affect normal Debridement Note Debridement Note No debridement was completed: No debridement was completed today Assessment/Plan Assessment/Plan (1) Bilateral lower extremity edema: CODE(S): R60.0 - Localized edema (2) Cellulitis of leg, right: CODE(S): L03.115 - Cellulitis of right lower limb (3) Venous stasis dermatitis of both lower extremities: CODE(S): I87.2 - Venous insufficiency (chronic) (peripheral) PLAN: Plan The patient does not have any open wounds today. He has edema of the bilateral lower extremities. He had concern for cellulitis of the right lower extremity and was treated with a 10 day course of doxycycline, which improved the warmth and redness of his right lower extremity. He has some venous stasis skin changes and hemosiderin staining at his baseline. At home instructions: Wash legs daily with antibacterial soap and water, rinse and dry thoroughly. Use OTC Aquaphor or Eucerin lotion (unscented) for moisturization of the bilateral lower extremities. Compression: Single-layer Tubigrip's (high-pressure) applied today. He was instructed to use compression daily. He has several pairs of compression stockings at home, some of which are several years old, and a prescription for new compression stockings was given (20-30 mmHg); he is not eligible to for new compression via his insurance until April 2022. He has been using Tubigrips or his other compression stockings daily. He was instructed to don his compression stockings first thing in the morning, before standing. He may remove these to shower, and may remove them to sleep at night, but otherwise should be wearing his compression stockings at all times. Off-loading: Avoid prolonged standing and/or dangling of legs. When seated, feet should be elevated at chest level. Frequent, short periods of ambulation are encouraged. Diet: Patient educated on the importance of protein intake, and optimizing management of diabetes and preventing cellulitis and occurrence of wounds. Labs/cultures/imaging: Vascular studies reviewed as annotated above. Follow-up: Return to clinic on an as needed basis should new wounds develop. Note: [employer] speech recognition developmental training counselor software was used to create portions of this document. Sound-alike and misspelled words, as well as other developmental training counselor errors may be contained in the documentation.
[2022-01-05 10:19] VITALS: BP 136/85; PULSE 73; TEMP 36.4
== END 2022-01-05 15:19 | disposition home or self-care (01) ==
LOC: WC 09:41
PROVIDERS: Visit Provider Nurse Practitioner Family
DX: L03.115 Cellulitis of right lower limb (principal); E11.59 Type 2 diabetes mellitus with other circulatory complications; E78.5 Hyperlipidemia, unspecified; I87.2 Venous insufficiency (chronic) (peripheral); I10 Essential (primary) hypertension; R60.0 Localized edema
CPT/HCPCS: 99213; G0463